=== PATIENT | male | born 1935 | race Caucasian/White ===

== ENCOUNTER 2020-11-03 14:06 | Inpatient (IN) | payer MEDICARE ==
[~2020-11-03] VITALS: Ht 175 cm; Wt 96.6 kg
[2020-11-03] MEDS ORDERED: methylPREDNISolone 125 MG (Solu-MEDROL) VIAL ONE (14:21)
[2020-11-03] MEDS ORDERED: LACTATED RINGERS 1,000 ML IV ONE (14:24)
[2020-11-03] MEDS ORDERED: dilTIAZem DRIP PRE-MIX 125 ML IV ONE (14:40)
[2020-11-03] MEDS ORDERED: methylPREDNISolone 125 MG (Solu-MEDROL) VIAL IVP ONE (15:00)
[2020-11-03 15:06] LABS: BASOPHILS # (AUTO) 0.1 10^3/uL (0.0-0.1); BASOPHILS % (AUTO) 0 % (0-10); EOSINOPHILS % (AUTO) 0 % (0-10); HEMATOCRIT 44 % (40-54); HEMOGLOBIN 14.2 g/dL (13.3-17.7); LYMPHOCYTES # (AUTO) 2.6 X 10^3 (1.0-4.0); LYMPHOCYTES % (AUTO) 16 % (12-44); MEAN CORPUSCULAR HEMOGLOBIN 30 pg (25-34); MEAN CORPUSCULAR HGB CONC 33 g/dL (32-36); MEAN CORPUSCULAR VOLUME 91 fL (80-99); MONOCYTES # (AUTO) 0.9 X 10^3 (0.0-1.0); MONOCYTES % (AUTO) 5 % (0-12); NEUTROPHILS # (AUTO) 12.6 X 10^3 (1.8-7.8); NEUTROPHILS % (AUTO) 78 % (42-75); PLATELET COUNT 207 10^3/uL (130-400); WHITE BLOOD COUNT 16.1 10^3/uL (4.3-11.0)
[2020-11-03 15:11] LABS: INR 2.2 (0.8-1.4)
[2020-11-03 15:14] LABS: ALBUMIN 3.6 GM/DL (3.2-4.5); BILIRUBIN,TOTAL 1.1 MG/DL (0.1-1.0); CALCIUM 8.5 MG/DL (8.5-10.1); CREATININE SERUM 1.48 MG/DL (0.60-1.30); POTASSIUM 4.3 MMOL/L (3.6-5.0); TOTAL PROTEIN 7.4 GM/DL (6.4-8.2)
[2020-11-03 15:16] LABS: BAND NEUTROPHILS 2 %; LYMPHOCYTES % (MANUAL) 19 %; MONOCYTES % (MANUAL) 5 %; NEUTROPHILS % (MANUAL) 74 %; RBC MORPH NORMAL
[2020-11-03] MEDS ORDERED: ASPIRIN 81 MG CHEW (CHILDREN'S ASA) PO STA (15:21)
--- NOTE | 2020-11-03 15:25 | NUR ---
CARDIZEM INCREASED TO 20CC/HR ORDERED
--- NOTE | 2020-11-03 15:45 | NUR ---
TEMP 102.3. HR128, RR35, B/P 138/75
--- NOTE | 2020-11-03 15:47 | Diagnostic Imaging Report ---
INDICATION: COVID positive patient, irregular heart rate. Frontal chest obtained 03:37 p.m. and compared to 09/16/2016. There is mild cardiomegaly. There are extensive new patchy alveolar infiltrates in the mid to lower lung barrera on both sides, suspicious for atypical pneumonia. There is no pneumothorax. There is minimal left pleural effusion. IMPRESSION: Extensive new bilateral infiltrates compatible with atypical pneumonia. There is mild cardiomegaly. Dictated by: Dictated on workstation # [id number]
[2020-11-03] MEDS ORDERED: ACETAMINOPHEN 500 MG TAB (TYLENOL) PO STA (15:50)
--- NOTE | 2020-11-03 16:30 | ED General ---
General Chief Complaint: Respiratory Problems Stated Complaint: COVID + Nursing Triage Note: PT FROM INFUSION AREA PER CART INTO ROOM 8, PT SAT 80% ON 15L VIA OX MASK, PT IN RESP DISTRESS. PT HAS COVID AND HAS JUST FINISHED BAM INFUSION. PT HR 174 SAT 80%ON 15L, B/P 145/86. PT IS AWAKE AND ALERT, SKIN VERY WARM AND DRY. PT DENEIS PAIN STATES JUST HAVING TROUBLE BREATHING. PT HAS #22 SL IN R AC BY INFUSION NURSE. Nursing Sepsis Screen: Possible Sepsis Risk Source of Information: Patient Exam Limitations: No Limitations History of Present Illness Date Seen by Provider: Nov 03, 2020 Time Seen by Provider: 14:20 Initial Comments Here after infusion therapy with Bamlanivimab due to recent Covid infection. Patient has positive test results today from test done yesterday after onset of symptoms on Monday 3 days ago. Patient met qualification for monoclonal antibody therapy priority 1 and this was given. During the infusion, patient's O2 saturations noted to be declining on room air. Does have significant history of COPD and did not do his breathing treatment this afternoon. He was given albuterol treatment via MDI during therapy and started on oxygen. Despite this, his O2 saturation did not improve and patient was brought over to the emergency department. There he was noted to be 84% on 15 L via mask and down as low as the 80s occasionally. Very dyspneic. Does have fever. Did have IV established from infusion therapy. Timing/Duration: 2-3 Days, Getting Worse Severity: Severe Associated Systoms: No Chest Pain; Cough, Fever/Chills; No Nausea/Vomiting; Shortness of Air, Weakness Allergies and Home Medications Allergies Coded Allergies: No Known Drug Allergies (Unverified , 11/03/20) Home Medications Albuterol Sulfate 1 Puff Puff, 2 PUFF IH Q6H PRN for SHORTNESS OF BREATH, (Reported) 1 PUFF = 90 MCG Apixaban 5 Mg Tablet, 5 MG PO BID, (Reported) Arformoterol Tartrate 15 Mcg/2 Ml Vial.neb, 1 VIAL NEB BID, (Reported) Budesonide 0.5 Mg/2 Ml Ampul.neb, 1 VIAL NEB BID, (Reported) Diltiazem HCl 240 Mg Cap.er.24h, 240 MG PO DAILY, (Reported) 1 HOUR BEFORE OR 2 HOURS AFTER A MEAL Furosemide 40 Mg Tablet, 40 MG PO DAILY, (Reported) Lisinopril 40 Mg Tablet, 40 MG PO DAILY, (Reported) Pravastatin Sodium 20 Mg Tablet, 20 MG PO HS, (Reported) Umeclidinium Hathorne 62.5 Mcg Blst.w.dev, 1 PUFF INH DAILY, (Reported) Patient Home Medication List Home Medication List Reviewed: Yes Review of Systems Review of Systems Constitutional: see HPI, chills, fever, weakness EENTM: nose congestion; No throat pain Respiratory: cough, dyspnea on exertion, short of breath, wheezing Cardiovascular: No chest pain, No edema Gastrointestinal: No abdominal pain, No nausea, No vomiting Genitourinary: no symptoms reported Musculoskeletal: no symptoms reported Skin: no symptoms reported Psychiatric/Neurological: No Symptoms Reported All Other Systems Reviewed Negative Unless Noted: Yes Past Bwlofwl-Smapya-Ohzdzp Hx Past Med/Social Hx: Reviewed Nursing Past Med/Soc Hx Patient Social History Alcohol Use: Denies Use Recreational Drug Use: No Recent Foreign Travel: No Contact w/Someone Who Travel: No Recent Infectious Disease Expo: No Past Medical History Respiratory: Yes Chronic Bronchitis Cardiac: Yes Atrial Fibrillation, High Cholesterol, Hypertension Neurological: No Family Medical History Reviewed Nursing Family Hx No Pertinent Family Hx Physical Exam-Suspected Sepsis Physical Exam Vital Signs Vital Signs - First Documented 11/03/20 14:20 Temp 38.9 Pulse 174 Resp 60 B/P (MAP) 145/86 (105) Pulse Ox 84 O2 Delivery OxyMask O2 Flow Rate 15.00 Capillary Refill : Less Than 3 Seconds Blood Pressure Mean: 105 Height, Weight, BMI Height: '" Weight: lbs. oz. kg; 25.00 BMI Method: General Appearance: WD/WN, Moderate Distress HEENT: PERRL/EOMI, Other (Dry mucous membranes) Neck: Full Range of Motion, Supple Respiratory: Crackles, Decreased Breath Sounds, Respiratory Distress, Wheezing Cardiovascular: Irregularly Irregular, Tachycardia Gastrointestinal: Non Tender, Soft Back: Normal Inspection, No CVA Tenderness, No Vertebral Tenderness Extremity: Normal Inspection, Normal Range of Motion, Non Tender, No Calf Tenderness, No Pedal Edema Neurologic/Psychiatric: Alert, Oriented x3, No Motor/Sensory Deficits Skin: normal color, warm/dry Focused Exam Lactate Level 11/03/20 14:45: Lactic Acid Level 4.00*H 11/03/20 17:02: Lactic Acid Level 2.96*H Lactic Acid Level Laboratory Tests Test 11/03/20 17:02 Lactic Acid Level 2.96 MMOL/L (0.50-2.00) *H Procedures/Interventions Lumen: triple Central Line Procedure: betadine prep, sterile drapes applied, sterile dressing applied Position: internal jugular (R) Complications: none Post Position: sutured, good blood return, position confirmed w/ CXR Place via ultrasound guidance using Seldinger technique x1 stick without complications. Placement confirmed with x-ray. Date of ETT Placement: Nov 03, 2020 Time of ETT Placement: 18:15 Intubation Method: orotracheal Tube Size: 7.5 Medications: Etomidate, Fentanyl, Succinylcholine, Versed Positive End Tide CO2: Yes Breath Sounds after Intubation: bilateral-equal Intubation Complications: no complications Post Intubation Xray: Yes Tube in good position Progress/Results/Core Measures Suspected Sepsis Recent Fever Within 48 Hours: Yes Infection Criteria Present: Documented Infection New/Unexplained Altered Menta: No Sepsis Screen: Possible Sepsis Risk SIRS Temperature: Pulse: 174 Respiratory Rate: 60 Laboratory Tests 11/03/20 14:45: White Blood Count 16.1H Blood Pressure 145 /86 Mean: 105 11/03/20 14:45: Lactic Acid Level 4.00*H 11/03/20 17:02: Lactic Acid Level 2.96*H Laboratory Tests 11/03/20 14:45: Creatinine 1.48H, INR Comment 2.2H, Platelet Count 207, Total Bilirubin 1.1H Results/Orders Lab Results Laboratory Tests Test 11/03/20 14:45 11/03/20 16:47 11/03/20 17:02 Range/Units White Blood Count 16.1 H 4.3-11.0 10^3/uL Red Blood Count 4.77 4.30-5.52 10^6/uL Hemoglobin 14.2 13.3-17.7 g/dL Hematocrit 44 40-54 % Mean Corpuscular Volume 91 80-99 fL Mean Corpuscular Hemoglobin 30 25-34 pg Mean Corpuscular Hemoglobin Concent 33 32-36 g/dL Red Cell Distribution Width 13.7 10.0-14.5 % Platelet Count 207 130-400 10^3/uL Mean Platelet Volume 11.0 9.0-12.2 fL Immature Granulocyte % (Auto) 0 % Neutrophils (%) (Auto) 78 H 42-75 % Lymphocytes (%) (Auto) 16 12-44 % Monocytes (%) (Auto) 5 0-12 % Eosinophils (%) (Auto) 0 0-10 % Basophils (%) (Auto) 0 0-10 % Neutrophils # (Auto) 12.6 H 1.8-7.8 X 10^3 Lymphocytes # (Auto) 2.6 1.0-4.0 X 10^3 Monocytes # (Auto) 0.9 0.0-1.0 X 10^3 Eosinophils # (Auto) 0.0 0.0-0.3 10^3/uL Basophils # (Auto) 0.1 0.0-0.1 10^3/uL Immature Granulocyte # (Auto) 0.0 0.0-0.1 10^3/uL Neutrophils % (Manual) 74 % Lymphocytes % (Manual) 19 % Monocytes % (Manual) 5 % Band Neutrophils 2 % Blood Morphology Comment NORMAL Prothrombin Time 25.0 H 12.2-14.7 SEC INR Comment 2.2 H 0.8-1.4 Activated Partial Thromboplast Time 47 H 24-35 SEC Sodium Level 139 135-145 MMOL/L Potassium Level 4.3 3.6-5.0 MMOL/L Chloride Level 102 98-107 MMOL/L Carbon Dioxide Level 23 21-32 MMOL/L Anion Gap 14 5-14 MMOL/L Blood Urea Nitrogen 21 H 7-18 MG/DL Creatinine 1.48 H 0.60-1.30 MG/DL Estimat Glomerular Filtration Rate 45 BUN/Creatinine Ratio 14 Glucose Level 167 H 70-105 MG/DL Lactic Acid Level 4.00 *H 2.96 *H 0.50-2.00 MMOL/L Calcium Level 8.5 8.5-10.1 MG/DL Corrected Calcium 8.8 8.5-10.1 MG/DL Total Bilirubin 1.1 H 0.1-1.0 MG/DL Aspartate Amino Transf (AST/SGOT) 51 H 5-34 U/L Alanine Aminotransferase (ALT/SGPT) 56 H 0-55 U/L Alkaline Phosphatase 100 40-136 U/L Troponin I 0.053 H <0.028 NG/ML Total Protein 7.4 6.4-8.2 GM/DL Albumin 3.6 3.2-4.5 GM/DL Procalcitonin 0.37 H <0.10 NG/ML Urine Color YELLOW Urine Clarity CLEAR Urine pH 5.0 5-9 Urine Specific Liscomb 1.025 H 1.016-1.022 Urine Protein NEGATIVE NEGATIVE Urine Glucose (UA) NEGATIVE NEGATIVE Urine Ketones TRACE H NEGATIVE Urine Nitrite NEGATIVE NEGATIVE Urine Bilirubin NEGATIVE NEGATIVE Urine Urobilinogen 0.2 < = 1.0 MG/DL Urine Leukocyte Esterase NEGATIVE NEGATIVE Urine RBC (Auto) 1+ H NEGATIVE Urine RBC 2-5 H /HPF Urine WBC 0-2 /HPF Urine Crystals PRESENT H /LPF Urine Amorphous Sediment MOD PATRICK URATES H /LPF Urine Bacteria TRACE /HPF Urine Casts PRESENT /LPF Urine Hyaline Casts 10-25 H /LPF Urine Mucus SMALL H /LPF Urine Culture Indicated CULTURE PENDING Micro Results Microbiology 11/03/20 Influenza Types A,B Antigen (MARIELENA) - Final, Complete My Orders Orders - KATERIN GUERRA MD Methylprednisolone Sod Succ (Solu-Medrol (11/03/20 14:21) Lactated Ringers (Lr 1000 Ml Iv Solution (11/03/20 14:24) Diltiazem Drip Pre-Mix (Cardizem Drip Pr (11/03/20 14:40) Diltiazem Injection (Cardizem Injection) (11/03/20 14:40) Cbc With Automated Diff (11/03/20 14:52) Comprehensive Metabolic Panel (11/03/20 14:52) Blood Culture (11/03/20 14:52) Sputum Culture (11/03/20 14:52) Urinalysis (11/03/20 14:52) Urine Culture (11/03/20 14:52) Protime With Inr (11/03/20 14:52) Partial Thromboplastin Time (11/03/20 14:52) Chest 1 View, Ap/Pa Only (11/03/20 14:52) Ed Iv/Invasive Line Start (11/03/20 14:52) Ekg Tracing (11/03/20 14:52) Troponin I (11/03/20 14:52) Vital Signs Adult Sepsis Patie Q15M (11/03/20 14:52) O2 (11/03/20 14:52) Remove Rings In Anticipation O (11/03/20 14:52) Lactic Acid Analyzer (11/03/20 14:52) Influenza A And B Antigens (11/03/20 14:52) Methylprednisolone Sod Succ (Solu-Medrol (11/03/20 15:00) Ns (Ivpb) (Sodium C... W/Diltiazem Iv Fo (11/03/20 15:00) Diltiazem Injection (Cardizem Injection) (11/03/20 15:00) Manual Differential (11/03/20 14:45) Aspirin Chewable Tablet (Baby Aspirin Ch (11/03/20 15:21) Metoprolol Succinate (Xl) Tab (Toprol Xl (11/03/20 15:30) Ekg Tracing (11/03/20 15:23) Acetaminophen Tablet (Tylenol Tablet) (11/03/20 15:50) Lorazepam Injection (Ativan Injection) (11/03/20 17:00) Metoprolol Tartrate Injection (Lopressor (11/03/20 17:15) Metoprolol Tartrate Injection (Lopressor (11/03/20 17:15) Procalcitonin (Pct) (11/03/20 17:23) Cefepime Injection (Maxipime Injection) (11/03/20 17:45) Vancomycin Injection (Vancomycin Injecti (11/03/20 17:45) Propofol Drip (Icu) (Diprivan Drip (Icu) (11/03/20 18:05) Norepinephrine 4 Mg/250 Ml (Norepinephri (11/03/20 18:16) Chest 1 View, Ap/Pa Only (11/03/20 18:33) Phenylephrine Injection (Adams-Synephrine (11/03/20 19:00) Medications Given in ED Current Medications Medications Dose Ordered Sig/Kyaw Route Start Time Stop Time Status Last Admin Dose Admin Diltiazem HCl 25 mg STK-MED ONCE .ROUTE 11/03/20 14:40 11/03/20 14:45 DC 11/03/20 14:46 15 MG Diltiazem HCl 125 ml @ ud STK-MED ONCE IV 11/03/20 14:40 11/03/20 14:44 DC 11/03/20 14:46 10 MLS/HR Lactated Ringer's 1,000 ml @ ud STK-MED ONCE IV 11/03/20 14:24 11/03/20 14:28 DC 11/03/20 14:25 1,000 MLS/HR Lorazepam 0.5 mg ONCE ONCE IVP 11/03/20 17:00 11/03/20 17:01 DC 11/03/20 17:02 0.5 MG Methylprednisolone Sodium Succinate 125 mg STK-MED ONCE .ROUTE 11/03/20 14:21 11/03/20 14:25 DC 11/03/20 14:22 125 MG Metoprolol Succinate 25 mg ONCE ONCE PO 11/03/20 15:30 11/03/20 15:31 DC 11/03/20 15:31 25 MG Metoprolol Tartrate 5 mg ONCE ONCE IV 11/03/20 17:15 11/03/20 17:16 DC 11/03/20 17:19 5 MG Vital Signs/I&O 11/03/20 14:20 Temp 38.9 Pulse 174 Resp 60 B/P (MAP) 145/86 (105) Pulse Ox 84 O2 Delivery OxyMask O2 Flow Rate 15.00 Capillary Refill : Less Than 3 Seconds Blood Pressure Mean: 105 Progress Note : Progress Note Seen and evaluated on arrival. IVs already been established but second IV ordered. Patient noted to be in A. fib RVR and and respiratory distress/failure. High flow O2 initiated and this was changed to BiPAP as soon as it was available. BiPAP initiated at 18/8 and 100%. Ultimately decreased to 15/5 and 55% with O2 sats at 92%. Patient much better after initiation of BiPAP. Solu-Medrol 125 mg IV initiated. Sepsis protocol initiated. LR 1 L bolus ordered. Cardizem 15 mg IV bolus and drip initiated at 10 mg/h started. 1600: Cardizem at 20 mg/h. Patient had abnormal EKG finding on initial EKG at 1500. This was discussed with Dr. Mendez. Question of anterior infarct. EKG repeated at 1535 which still shows similar findings. Troponin slightly elevated at 0.05. We are trying to get old EKG. Patient is currently on Eliquis. We did give aspirin 81 mg p.o. as well as metoprolol XL 25 mg p.o. EKG does not show typical ST elevation MS. 1629: Patient is still without chest pain and has remained chest pain-free throughout the visit. Breathing is much better. Pending EKG from outside hospital. Consideration for heart cath. Monitor patient. 1710: Dr. Alexander evaluating patient in the emergency department. Old EKGs obtained. Does show chronic changes in concerning leads. This was disc ussed at length with the patient's family. At this point, heart cath not indicated given his serious condition. Remains on BiPAP although oxygen had to be increased to 65% FiO2. 1740: Further discussion with the patient and family has been had. Patient is full code. He is becoming increasingly short of breath and at this point I feel intubation is indicated. This was discussed with Dr. Cornejo who agrees. I also discussed this with the family who agree. They understand the critical nature of his current condition especially in light of COVID-19 infection and the A. fib with RVR and significant chronic lung disease history. Patient at high risk for mortality. Patient to be admitted to the ICU. We will initiate intubation and central line. 1907: Intubation complete and central line placed without difficulty. Patient did receive Versed 5 mg IV and fentanyl 50 mcg IV after intubation. Rocuronium 50 mg IV given pending propofol initiation. Patient became hypotensive after intubation and Levophed initiated and ultimately increased 2.25 mcg/kg/min. Patient initiated on propofol at 40 mcg/kg/min. Patient remained hypoxic in the 80s despite that changes to rate of 20, tidal volume 450 and PEEP of 14. Patient proned in the ED with improved O2 saturation to low 90s and blood pressure improved. Cardizem drip titrated down to 5 mg/h. I did call report to eICU team and discussed rob campoverde case. We will consider Adams-Synephrine drip for blood pressure management in addition to Levophed if needed and this was ordered. Admit, inpatient status, critical condition. Critical care time 60 minutes. Family updated and agrees with plan. ECG Initial ECG Impression Date: Nov 03, 2020 Initial ECG Impression Time: 15:01 Initial ECG Rate: 149 Initial ECG Rhythm: A Fib/Flutter Initial ECG Impression: Atrial Fibrillation w/RVR Comment A. fib with RVR. Q waves and question of ST elevation in V1 through V6. This is consistent with previous from outside hospital EKG done on 09/14/2020 although rate is much faster currently. A. fib previously noted. This was reviewed with the cupola melter who agrees. EKG : EKG Time: 15:35 Rate: 124 Rhythm: A Fib/Flutter ECG Impression: Atrial Fibrillation w/RVR Comment A. fib RVR similar to previous. Previous chronic changes still noted and unchanged. Reviewed with cupola melter who agrees. Diagnostic Imaging Diagonstic Imaging: Xray Plain Films/CT/US/NM/MRI: chest Comments [facility], [place] NAME: SAMMI GUILLEN [facility] REC#: [id number] PT STATUS: REG ER : 1935 PHYSICIAN: KATERIN GUERRA MD ADMIT DATE: 11/03/20/ER Draft Date of Exam:11/03/20 CHEST 1 VIEW, AP/PA ONLY INDICATION: COVID positive patient, irregular heart rate. Frontal chest obtained 03:37 p.m. and compared to 09/16/2016. There is mild cardiomegaly. There are extensive new patchy alveolar infiltrates in the mid to lower lung barrera on both sides, suspicious for atypical pneumonia. There is no pneumothorax. There is minimal left pleural effusion. IMPRESSION: Extensive new bilateral infiltrates compatible with atypical pneumonia. There is mild cardiomegaly. Dictated on workstation # [id number] Dict: 11/03/20 1544 Trans: 11/03/20 1547 [facility] [id number] Interpreted by: DOMINIC MIR MD Electronically signed by: Critical Care Note Critical Care Start Time: 14:20 Stop Time: 19:06 Total Time (minutes) 60 Departure Communication (Admissions) Time/Spoke to Admitting Phy: 15:27 Time/Spoke to Consulting Phy: 15:19 Impression Primary Impression: Pneumonia due to COVID-19 virus Additional Impressions: Atrial fibrillation with rapid ventricular response Respiratory failure with hypoxia Qualified Codes: J96.01 - Acute respiratory failure with hypoxia Disposition: ADMITTED INPATIENT Condition: Critical Admissions Decision to Admit Reason: Admit from ER (General) Decision to Admit/Date: Nov 03, 2020 Time/Decision to Admit Time: 15:27 Departure-Patient Inst. Referrals: NO,LOCAL PHYSICIAN (PCP/Family) Primary Care Physician KATERIN GUERRA MD Nov 03, 2020 16:30
[2020-11-03] MEDS ORDERED: LORazepam INJ 2 MG/ML (ATIVAN) VIAL IVP ONE (17:00)
[2020-11-03 17:04] LABS: BILIRUBIN,URINE NEGATIVE (NEGATIVE); CLARITY,URINE CLEAR; COLOR,URINE YELLOW; GLUCOSE, URINE (UA) NEGATIVE (NEGATIVE); KETONES,URINE TRACE (NEGATIVE); LEUKOCYTE ESTERASE ,URINE NEGATIVE (NEGATIVE); NITRITE,URINE NEGATIVE (NEGATIVE); PROTEIN,URINE NEGATIVE (NEGATIVE)
[2020-11-03 17:13] LABS: BACTERIA,URINE TRACE /HPF; WBC,URINE 0-2 /HPF
[2020-11-03 17:14] LABS: AMORPHOUS SEDIMENT,UR MOD AMOR URATES /LPF
[2020-11-03] MEDS ORDERED: meTOprolol 5 MG/5 ML (LOPRESSOR) VIAL IV ONE ×2 (17:15)
--- NOTE | 2020-11-03 17:21 | NUR ---
DR BUSCH HERE TO SEE PT
--- NOTE | 2020-11-03 17:33 | NUR ---
[id number] AX
--- NOTE | 2020-11-03 17:34 | Consultation-Cardiology ---
HPI-Cardiology Cardiology Consultation: Date of Consultation 11/03/20 Time Seen by a Provider: 17:10 Date of Admission Attending Physician Admitting Physician No,Local Physician Consulting Physician KIM BUSCH MD, MA, FACP, FACC, FSCAI, CCDS HPI: Chief Complaint: CC: Shortness of breath HPI 85 yo man who is being admitted to hospitalist service for recently diagnosed COVID-19 and increasing shortness of breath. Shortness of breath much worse today. Denies cp or palp or syncope or swelling. Has been running high-grade fever. Has gen malaise. Notes gen weakness Review of Systems-Cardiology Review of Systems Constitutional: As described under HPI Eyes: No vision change Ears/Nose/Throat: No ear discharge, No nasal drainage, No throat pain Respiratory: As described under HPI Cardiovascular: As described under HPI Gastrointestinal: No diarrhea, No nausea, No vomiting Genitourinary: No dysuria, No hematuria, No urine frequency changes Musculoskeletal: back pain (chronic) Skin: No rash, No rash on exposed areas Psychiatric/Neurological: No seizure, No focal weakness, No syncope Hematologic: No bleeding abnormalities All Other Systems Reviewed Negative Unless Noted: Yes MTY-Xugmbw-Jrbdqu Hx Patient Social History Alcohol Use: Denies Use Recreational Drug Use: No Recent Foreign Travel: No Recent Infectious Disease Expo: No Hospitalization with Isolation: Airborne Past Medical History PMH As described under Assessment. Family Medical History Family Medical History: Does not report fam h/o early CAD or SCD Allergies and Home Medications Allergies Coded Allergies: No Known Drug Allergies (Unverified , 11/03/20) Patient Home Medication List Home Medication List Reviewed: Yes Physical Exam-Cardiology Physical Exam Vital Signs/I&O 11/03/20 14:20 Temp 38.9 Pulse 174 Resp 60 B/P (MAP) 145/86 (105) Pulse Ox 84 O2 Delivery OxyMask O2 Flow Rate 15.00 Capillary Refill : Less Than 3 Seconds Constitutional: appears stated age, AAO x 3, well-developed, well-nourished, other (appears unwell) HEENT: PERRL, EOMI; No xanthelasmas are seen Neck: carotid pulses are 2 + bilaterally, with good upstrokes Respiratory: No accessory muscle use; other (bibasilar and mid zone coarse crackles, prolonged exp, scattered exp wheezes) Cardiovascular: regular rate-rhythm, S1 and S2, systolic murmur (soft WARNER at card base) Gastrointestinal: No tender; soft; No guarding, No rebound; audible bowel sounds Extremities: No clubbing, No cyanosis, No significant edema Neurologic/Psychiatric: oriented x 3, other (moves all limbs equally) Skin: No rash on exposed areas, No ulcerations on exposed areas Data Review Labs Laboratory Tests 11/03/20 14:45: White Blood Count 16.1H, Red Blood Count 4.77, Hemoglobin 14.2, Hematocrit 44, Mean Corpuscular Volume 91, Mean Corpuscular Hemoglobin 30, Mean Corpuscular Hemoglobin Concent 33, Red Cell Distribution Width 13.7, Platelet Count 207, Mean Platelet Volume 11.0, Immature Granulocyte % (Auto) 0, Neutrophils (%) (Auto) 78H, Lymphocytes (%) (Auto) 16, Monocytes (%) (Auto) 5, Eosinophils (%) (Auto) 0, Basophils (%) (Auto) 0, Neutrophils # (Auto) 12.6H, Lymphocytes # (Auto) 2.6, Monocytes # (Auto) 0.9, Eosinophils # (Auto) 0.0, Basophils # (Auto) 0.1, Immature Granulocyte # (Auto) 0.0, Neutrophils % (Manual) 74, Lymphocytes % (Manual) 19, Monocytes % (Manual) 5, Band Neutrophils 2, Blood Morphology Comment NORMAL, Prothrombin Time 25.0H, INR Comment 2.2H, Activated Partial Thromboplast Time 47H, Sodium Level 139, Potassium Level 4.3, Chloride Level 102, Carbon Dioxide Level 23, Anion Gap 14, Blood Urea Nitrogen 21H, Creatinine 1.48H, Estimat Glomerular Filtration Rate 45, BUN/Creatinine Ratio 14, Glucose Level 167H, Lactic Acid Level 4.00*H, Calcium Level 8.5, Corrected Calcium 8.8, Total Bilirubin 1.1H, Aspartate Amino Transf (AST/SGOT) 51H, Alanine Aminotransferase (ALT/SGPT) 56H, Alkaline Phosphatase 100, Troponin I 0.053H, Total Protein 7.4, Albumin 3.6 11/03/20 16:47: Urine Color YELLOW, Urine Clarity CLEAR, Urine pH 5.0, Urine Specific [place] 1.025H, Urine Protein NEGATIVE, Urine Glucose (UA) NEGATIVE, Urine Ketones TRACEH, Urine Nitrite NEGATIVE, Urine Bilirubin NEGATIVE, Urine Urobilinogen 0.2, Urine Leukocyte Esterase NEGATIVE, Urine RBC (Auto) 1+H, Urine RBC 2-5H, Urine WBC 0-2, Urine Crystals PRESENTH, Urine Amorphous Sediment MOD PATRICK URATESH, Urine Bacteria TRACE, Urine Casts PRESENT, Urine Hyaline Casts 10-25H, Urine Mucus SMALLH, Urine Culture Indicated CULTURE PENDING 11/03/20 17:02: Lactic Acid Level 2.96*H Microbiology 11/03/20 Influenza Types A,B Antigen (MARIELENA) - Final, Complete Laboratory Tests 11/03/20 14:45 A/P-Cardiology Assessment/Admission Diagnosis Ac resp failure due to bilateral COVID-19 pneumonia Chronic atrial fib with a rapid vent response Chronically abnormal ECG: A Fib with atypical bundle branch block, old ASMI cannot be excluded, unchanged (except for minor differences in lead placement) compared to ECGs of Aug 2020 (done at [facility], [place], [place]) Minimal troponin elevation is likely due to hypoxia from COVID-19 pneumonia that has led to ac resp failure and hypoxia LVEF reported to be normal on echo done at [facility] in 2019 H/o COPD Acute renal insufficiency, KOREY - 2 Chronic apixaban anticoag Discussion and Recomendations * ECG is chronically abnormal. Minimal troponin elevation is likely due to hypoxia from COVID-19 pneumonia that has led to ac resp failure and hypoxia * Continue apixaban * iv dilt and beta-michael for vent rate control * Treatment of COVID-19 and associated complications is with the Hospitalist and ICU services * Monitor labs * I discussed his case with his daughter who works at this hospital * Prognosis is guarded KIM BUSCH MD FACP FAC CCDS Nov 03, 2020 17:34
[2020-11-03] MEDS ORDERED: CEFEPIME INJECTION 1,000 MG in WATER (STERILE) FOR INJECTION 10 ML IV ONE (17:45)
[2020-11-03] MEDS ORDERED: VANCOMYCIN INJECTION 750 MG in NS (IVPB) 250 ML IV SCH (17:45)
--- NOTE | 2020-11-03 17:45 | NUR ---
PT O2 SAT DECREASING WHEN ON BIPAP, PT REPOSITIONED TO SIDE. DR GUERRA NOTIFIED. PLANS TO INTUBATE PT. DAUGHTER ALLOWED IN TO SPEAK TO PT. PT IN AGREEMENT W INTUBATION.
--- NOTE | 2020-11-03 18:00 | NUR ---
1800 PT GIVEN 100MG SUCCS IV 1800 ETOMIDATE 20MG IV GIVEN ORDERED [address] GUERRA 7.5 ET TUBE. 23CM @ GUMS +COLOR CHANGE. +BILATERAL BREATH SOUNDS. 1808 2.5MG VERSED GIVEN IV 180 50MG FENTYL GIVEN IV 1810 ADELAIDE 50MG IV GIVEN 181 VERSED 2.5MG IV GIVEN 181 PROPOFOL STARTED @40 MCG/KG/MIN 1816 OG INSERTED 1830 LEVOPHED STARTED 0.1MCG/KG/MIN 1835 LEVOPHED INCREASED TO 0.15MCG/KG/MIN 1836 SCHNEIDER INSERTED #16 1840 CENTRAL LINE INSERTED BY DR GUERRA IN R IJ. 1840 LEVOPHED INCREASED TO 0.25MCG/KG/MIN 1849 PLACEMENT OF ET TUBE, OG AND CENTAL LINE CHECKED BY X-RAY 1850 PT TO PRONE POSITION 1858 PT TO ICU PER BED, RN, RT X2, CLEANING STAFF SUPERVISOR, ED PCCT AND ICU PCCT
[2020-11-03] MEDS ORDERED: PROPOFOL DRIP (ICU) 100 ML IV ONE (18:05)
[2020-11-03] MEDS ORDERED: NOREPINEPHRINE 4 MG/250 ML 250 ML IV ONE (18:16)
--- NOTE | 2020-11-03 18:54 | Diagnostic Imaging Report ---
EXAMINATION: Chest 1 view HISTORY: Endotracheal tube and central line placement. COMPARISON: Chest radiograph performed earlier the same date. FINDINGS: Interval placement of a right internal jugular approach central line with the tip overlying the low SVC. Patent endotracheal tube has been placed with the tip overlying the trachea approximately 6 cm above the bindu. Enteric tube is seen descending below the diaphragm not included on this exam. Stable patchy and consolidative opacities are seen throughout the lungs with relative sparing of the lung apices. No large pleural effusion or pneumothorax. Cardiac silhouette is stable. IMPRESSION: 1. Interval placement of an endotracheal tube, right internal jugular central line, and enteric tube. 2. Stable opacities throughout the lungs, consistent with a history of COVID infection. Dictated by: Dictated on workstation # [id number]
[2020-11-03] MEDS ORDERED: PHENYLEPHRINE INJECTION 10 MG in NS (IVPB) 250 ML IV SCH (19:00)
[2020-11-03] MEDS ORDERED: CATHETER FLUSH 10 ML SYR IV PRN (19:45)
[2020-11-03] MEDS: dilTIAZem DRIP 125 MG/125 ML DRIP IV SCH (19:50)
--- NOTE | 2020-11-03 19:52 | NUR ---
updated daughter Angel at this time
[2020-11-03] MEDS ORDERED: ACETAMINOPHEN 650 MG SUPP (TYLENOL) PR PRN ×2 (20:00→20:15)
[2020-11-03] MEDS ORDERED: ACETAMINOPHEN 325 MG TABLET PO PRN (20:00)
[2020-11-03] MEDS ORDERED: EPINEPHrine 1 MG INJECTION 4 MG in NS (IVPB) 248 ML IV SCH (20:00)
[2020-11-03] MEDS ORDERED: LEVALBUTEROL INH PRN (20:00)
[2020-11-03] MEDS ORDERED: PHENYLEPHRINE 10 MG/NS 250 ML IV SCH ×2 (20:15)
[2020-11-03] MEDS ORDERED: ETOMIDATE IV SOLN 20 MG/10 ML VIAL IV ONE (20:21)
[2020-11-03] MEDS ORDERED: MIDAZOLAM 5 MG/5 ML (VERSED) VIAL INJ ONE (20:21)
[2020-11-03] MEDS ORDERED: ROCURONIUM 10 MG/ML 5 ML SYRINGE IV ONE (20:21)
[2020-11-03] MEDS ORDERED: fentaNYL INJECTION 100 MCG/2 ML AMP IV ONE (20:21)
[2020-11-03] MEDS ORDERED: SUCCINYLCHOLINE INJ 100 MG/5 ML SYR/VIAL INJ ONE (20:21)
[2020-11-03] MEDS: meTOprolol 5 MG/5 ML (LOPRESSOR) VIAL IV SCH ×2 (20:38→23:31)
[2020-11-03] MEDS: VASOPRESSIN INJECTION 20 UNIT in NS (IVPB) 100 ML IV SCH (20:39)
[2020-11-03] MEDS: NOREPINEPHRINE 4 MG/250 ML 250 ML IV SCH ×2 (20:39→21:51)
[2020-11-03] MEDS ORDERED: VANCOMYCIN 750 MG/VIAL IV ONE (21:11)
[2020-11-03] MEDS ORDERED: NS (IVPB) 250 ML ONE (21:12)
[2020-11-03] MEDS ORDERED: VANCOMYCIN 500 MG/VIAL IV ONE (21:12)
[2020-11-03] MEDS ORDERED: fentaNYL DRIP PRE-MIX 250 ML IV ONE (21:16)
[2020-11-03] MEDS: fentaNYL DRIP PRE-MIX 250 ML IV SCH (21:44)
[2020-11-03] MEDS: CEFEPIME 1,000 MG/SWFI 10 ML IV PUSH IV SCH ×2 (21:45)
[2020-11-03] MEDS: LACTATED RINGERS 1,000 ML IV SCH (21:45)
[2020-11-03] MEDS: VANCOMYCIN 1250 MG/NS 250 ML IVPB IV SCH ×2 (21:46)
[2020-11-03] MEDS: APIXABAN 5 MG (ELIQUIS) TABLET PO SCH (21:47)
[2020-11-03] MEDS: CATHETER FLUSH 10 ML SYR IV SCH (22:18)
[2020-11-03 22:31] VITALS: BP 82/67
[2020-11-03 22:47] LABS: ABG BASE EXCESS -2.7 MMOL/L (-2.5-2.5); ABG OXYGEN SATURATION 92 % (94-100); ABG PCO2 47 MMHG (35-45); ABG PO2 64 MMHG (79-93)
[2020-11-03 22:50] LABS: INSPIRED O2 100; PATIENT TEMP 37.4; VENTILATOR YES
[2020-11-03 22:53] LABS: ABG PH 7.31 (7.37-7.43)
[2020-11-03] MEDS ORDERED: inSUlin ASPART (NovoLOG) 1 UNIT/0.01 ML (CHARGE PER UNIT) ONE (23:35)
[2020-11-03] MEDS: inSUlin ASPART (NovoLOG) 1 UNIT/0.01 ML (CHARGE PER UNIT) SC SCH (23:38)
[2020-11-04] MEDS: LACTATED RINGERS 1,000 ML IV SCH ×5 (01:08→20:17)
[2020-11-04] MEDS: NOREPINEPHRINE 4 MG/250 ML 250 ML IV SCH ×5 (01:09→20:08)
[2020-11-04] MEDS: meTOprolol 5 MG/5 ML (LOPRESSOR) VIAL IV SCH ×8 (02:01→23:06)
[2020-11-04 02:52] LABS: BASOPHILS # (AUTO) 0.1 10^3/uL (0.0-0.1); BASOPHILS % (AUTO) 0 % (0-10); EOSINOPHILS % (AUTO) 0 % (0-10); HEMATOCRIT 41 % (40-54); HEMOGLOBIN 13.3 g/dL (13.3-17.7); LYMPHOCYTES # (AUTO) 1.3 10^3/uL (1.0-4.0); LYMPHOCYTES % (AUTO) 6 % (12-44); MEAN CORPUSCULAR HEMOGLOBIN 30 pg (25-34); MEAN CORPUSCULAR HGB CONC 33 g/dL (32-36); MEAN CORPUSCULAR VOLUME 92 fL (80-99); MEAN PLATELET VOLUME 11.1 fL (9.0-12.2); MONOCYTES # (AUTO) 0.7 10^3/uL (0.0-1.0); MONOCYTES % (AUTO) 3 % (0-12); NEUTROPHILS # (AUTO) 20.8 10^3/uL (1.8-7.8); NEUTROPHILS % (AUTO) 91 % (42-75); PLATELET COUNT 199 10^3/uL (130-400)
[2020-11-04 03:02] LABS: ALBUMIN 3.2 GM/DL (3.2-4.5); POTASSIUM 4.3 MMOL/L (3.6-5.0)
[2020-11-04 03:03] LABS: CALCIUM 8.1 MG/DL (8.5-10.1)
[2020-11-04 03:05] LABS: TOTAL PROTEIN 6.6 GM/DL (6.4-8.2)
[2020-11-04 03:06] LABS: BILIRUBIN,TOTAL 0.9 MG/DL (0.1-1.0)
[2020-11-04 03:08] LABS: CREATININE SERUM 2.29 MG/DL (0.60-1.30); PHOSPHORUS 3.3 MG/DL (2.3-4.7)
[2020-11-04 03:11] LABS: MAGNESIUM 2.1 MG/DL (1.6-2.4)
[2020-11-04 03:16] LABS: ABG OXYGEN SATURATION 95 % (94-100); ABG PCO2 39 MMHG (35-45); ABG PH 7.36 (7.37-7.43); ABG PO2 74 MMHG (79-93)
[2020-11-04 03:17] LABS: ALLENS TEST POSITIVE; INSPIRED O2 85; PATIENT TEMP 35.8; VENTILATOR YES
[2020-11-04] MEDS: VASOPRESSIN INJECTION 20 UNIT in NS (IVPB) 100 ML IV SCH ×3 (04:32→20:10)
--- NOTE | 2020-11-04 05:12 | Pulmonary Consultation ---
History of Present Illness History of Present Illness Date Seen by Provider: Nov 04, 2020 Time Seen by Provider: 05:06 Date of Admission Allergies and Home Medications Allergies Coded Allergies: No Known Drug Allergies (Unverified , 11/03/20) Past Dwmiovz-Dauwhq-Vxuebz Hx Past Med/Social Hx: Reviewed Nursing Past Med/Soc Hx Patient Social History Alcohol Use: Denies Use Recreational Drug Use: No Smoking Status: Never a Smoker Recent Foreign Travel: No Contact w/Someone Who Travel: No Recent Infectious Disease Expo: No Recent Hopitalizations: No Past Medical History Abdominal Respiratory: Yes Chronic Bronchitis Cardiac: Yes Atrial Fibrillation, High Cholesterol, Hypertension Neurological: No Genitourinary: No Gastrointestinal: No Musculoskeletal: No Endocrine: No HEENT: No Cancer: No Psychosocial: No Integumentary: No Family Medical History Reviewed Nursing Family Hx No Pertinent Family Hx Review of Systems Time Seen by Provider: 05:22 Sepsis Event Evaluation Height, Weight, BMI Height: '" Weight: lbs. oz. kg; 25.00 BMI Method: Exam Exam Vital Signs Date Time Temp Pulse Resp B/P (MAP) Pulse Ox O2 Delivery O2 Flow Rate FiO2 11/04/20 04:32 106/66 11/04/20 04:32 67 111/69 11/04/20 04:00 35.9 67 13 111/69 (83) 95 Mechanical Ventilator 85.00 11/04/20 03:00 35.8 64 22 104/71 (82) 93 Mechanical Ventilator 85.00 11/04/20 02:30 Mechanical Ventilator 85.00 11/04/20 02:15 74 24 96 100 11/04/20 02:00 35.9 65 23 109/67 (81) 97 Mechanical Ventilator 100.00 11/04/20 01:09 66 11/04/20 01:00 64 11/04/20 01:00 36.3 64 25 96/62 (73) 97 Mechanical Ventilator 100.00 11/04/20 00:00 36.6 68 25 100/51 (67) 94 Mechanical Ventilator 100.00 11/03/20 23:00 37.1 72 28 97/61 (73) 93 Mechanical Ventilator 100.00 11/03/20 22:31 76 25 93 100 11/03/20 22:00 37.6 97 22 100/69 (79) 93 Mechanical Ventilator 100.00 11/03/20 21:51 90 110/62 1/5/21 21:51 101 11/03/20 21:00 38.1 86 19 108/63 (78) 90 Mechanical Ventilator 100.00 11/03/20 20:00 38.6 87 20 111/70 (84) 90 Mechanical Ventilator 100.00 Manual Cuff/Auscultation 11/03/20 20:00 93 Mechanical Ventilator 100 11/03/20 19:56 38.7 90 20 103/65 (78) 90 Mechanical Ventilator 100.00 103/65 (78) 11/03/20 19:41 84 94 11/03/20 19:30 87 20 102/76 (85) 90 Mechanical Ventilator 100.00 11/03/20 19:15 80 20 87/59 (68) 94 Mechanical Ventilator 100.00 11/03/20 19:05 82 19 78/66 (70) 94 Mechanical Ventilator 100.00 11/03/20 19:05 94 Mechanical Ventilator 80 11/03/20 19:04 78 11/03/20 18:50 78 18 101/86 94 11/03/20 18:30 96 81/45 11/03/20 18:13 96 68/34 11/03/20 14:20 94 NIV Bilevel 11/03/20 14:20 38.9 174 60 145/86 (105) 84 OxyMask 15.00 I & O 11/04/20 07:00 Intake Total 1000 ml Output Total 140 ml Balance 860 ml Height & Weight Height: '" Weight: lbs. oz. kg; 25.00 BMI Method: General Appearance: WD/WN, Moderate Distress HEENT: PERRL/EOMI, Other (Dry mucous membranes) Neck: Full Range of Motion, Supple Respiratory: Crackles, Decreased Breath Sounds, Respiratory Distress, Wheezing Cardiovascular: Irregularly Irregular, Tachycardia Capillary Refill: Less Than 3 Seconds Extremity: Normal Inspection, Normal Range of Motion, Non Tender, No Calf Tenderness, No Pedal Edema Neurologic/Psychiatric: Alert, Oriented x3, No Motor/Sensory Deficits Results Lab Laboratory Tests 11/03/20 14:45 11/04/20 02:41 Assessment/Plan Assessment/Plan Acute respiratory failure with COVID-19 and PNA -Continue ventilator -/ 85% -- Intubated 11/03 -Propofol 25, and Fentanyl at 50 -Proning -Decadron -CVP -Will not start Remdesivir secondary to pt being on vent and elevated LFTs. PNA with severe septic shock -IVF currently LR at 100 -Give a liter bolus of LR -Cefepime and vanco -Sultana cultures pending Hypotension -Levophed ARF -IVF -Monitor Afib RVR -Cardizem is off -Eliquis Acute GIB -Coffee ground emesis -Protonix BID -Pt is on Eliquis monitor closely NSTEMI -Cardiology is following PAULA SMALL DO Nov 04, 2020 05:12
[2020-11-04] MEDS ORDERED: WATER (STERILE) FOR INJECTION 10 ML ONE (05:35)
[2020-11-04] MEDS ORDERED: CEFEPIME 1 GM/10 ML (MAXIPIME) VIAL ONE (05:35)
[2020-11-04] MEDS ORDERED: PANTOPRAZOLE 40 MG (PROTONIX) VIAL ONE (05:42)
[2020-11-04] MEDS: CEFEPIME 1,000 MG/SWFI 10 ML IV PUSH IV SCH ×4 (06:04→18:18)
[2020-11-04] MEDS: inSUlin ASPART (NovoLOG) 1 UNIT/0.01 ML (CHARGE PER UNIT) SC SCH ×3 (06:05→17:59)
[2020-11-04] MEDS: PANTOPRAZOLE 40 MG (PROTONIX) VIAL IV SCH ×2 (06:05→20:16)
[2020-11-04] MEDS: CATHETER FLUSH 10 ML SYR IV SCH ×3 (06:07→22:05)
[2020-11-04 06:19] VITALS: BP 104/68
--- NOTE | 2020-11-04 06:59 | Occ Therapy Progress Note ---
Therapy Progress Note Pt is currently intubated and sedated. OT will monitor pt and initiate tx when pt is more medically stable and able to actively participate in skilled therapy. TISHA KOHLER Nov 04, 2020 06:59
--- NOTE | 2020-11-04 07:54 | Diagnostic Imaging Report ---
Indication: COVID pneumonia Upright chest shows mild cardiomegaly with normal vascularity. There are bilateral infiltrates with slight clearing in the right upper lobe and left lung since 11/03/2020. There has developed some consolidation in the right lower lobe which could be secondary to worsening of COVID pneumonia. Superimposed bacterial pneumonia cannot yet be excluded. There is no effusion or pneumothorax. ET tube, OG tube and IJ line remain in place. IMPRESSION: Mixed results with some clearing in the right upper lobe and left lung with more consolidation in the right lower lobe. Report was faxed to Yonatan/RN Infection Control by linda at 7:54am. Dictated by: Dictated on workstation # [id number]
--- NOTE | 2020-11-04 07:59 | Physical Therapy Progress Note ---
Therapy Progress Note PT order for evaluation received. Patient is currently intubated and sedated. Will start PT when patient is appropriate and able to participate. CLIFF MCKEE PT Nov 04, 2020 07:59
--- NOTE | 2020-11-04 09:30 | NUR ---
Pt transported to CT and back to room. During CT Central line was pulled out. Drips are now running through [facility], S. Dr. Villalba and Dr. Iqbal notified.
--- NOTE | 2020-11-04 09:44 | NUR ---
Pt is listed as [employer] and currently on vent. left message with dtr asking if pt would want to be anointed.
--- NOTE | 2020-11-04 09:56 | Diagnostic Imaging Report ---
PROCEDURE: CT chest without contrast. TECHNIQUE: Multiple contiguous axial images were obtained through the chest without the use of intravenous contrast. Auto Exposure Controls were utilized during the CT exam to meet ALARA standards for radiation dose reduction. INDICATION: Respiratory failure. FINDINGS: There are patchy alveolar infiltrates in both lungs. There is a left pleural effusion that layers out to a depth of 2 cm. There is a tiny right pleural effusion layering out to a depth of less than 1 cm. There is aortic atherosclerosis. There is coronary calcific atherosclerosis. There are some calcified mediastinal lymph nodes. IMPRESSION: Multifocal alveolar infiltrates in both lungs. The pattern and distribution are consistent with Covid pneumonia. The patient also has small bilateral pleural effusions. The report was faxed to Infection Control by jersey@9:55 AM. Dictated by: Dictated on workstation # [id number]
[2020-11-04] MEDS: APIXABAN 5 MG (ELIQUIS) TABLET PO SCH ×2 (10:14→20:09)
[2020-11-04 10:55] VITALS: BP 129/80
[2020-11-04] MEDS ORDERED: RT-ALBUTEROL INHALER HFA (VENTOLIN HFA) 18 GM IH PRN (12:00)
[2020-11-04] MEDS ORDERED: BUDE0.5A NEB (12:21)
[2020-11-04] MEDS ORDERED: FURO40TA4 PO (12:21)
[2020-11-04] MEDS ORDERED: LISI40TA PO (12:21)
[2020-11-04] MEDS ORDERED: APIX5TAB PO (12:21)
[2020-11-04] MEDS ORDERED: RT-ALBUINH IH (12:21)
[2020-11-04] MEDS ORDERED: UMEC62.5 INH (12:21)
[2020-11-04] MEDS ORDERED: ARFO15VI3 NEB (12:21)
[2020-11-04] MEDS ORDERED: DILT240C91 PO (12:21)
[2020-11-04] MEDS ORDERED: PRAV20TA3 PO (12:21)
--- NOTE | 2020-11-04 12:22 | NUR ---
UNABLE TO SPEAK WITH THE PT- I CALLED HIS DAUGHTER ARPAN (WHO IS AN [employer] EMPLOYEE) AND SHE BROUGHT ME HIS MEDICATION LIST. I USED THAT MED LIST AND THE EXT MED HISTORY TO COMPLETE THE MED REC I WILL ATTACH A COPY OF THE MED LIST TO THE PTS CHART.
--- NOTE | 2020-11-04 13:45 | Diagnostic Imaging Report ---
Indication: PICC line placement Portable chest 1:32 PM Right upper extremity PICC line tip projects over the SVC. ET tube projects over the trachea. NG tube enters the stomach. There are patchy infiltrates in both lungs. IMPRESSION: Right IJ central line has been removed. Right upper extremity PICC line has been placed with tip projecting over the SVC. Pulmonary infiltrates are unchanged from earlier in the day. Dictated by: Dictated on workstation # [id number]
[2020-11-04 14:33] LABS: BASOPHILS % (AUTO) 0 % (0-10); EOSINOPHILS % (AUTO) 0 % (0-10); HEMATOCRIT 38 % (40-54); HEMOGLOBIN 12.4 g/dL (13.3-17.7); LYMPHOCYTES # (AUTO) 0.8 10^3/uL (1.0-4.0); LYMPHOCYTES % (AUTO) 4 % (12-44); MEAN CORPUSCULAR HEMOGLOBIN 30 pg (25-34); MEAN CORPUSCULAR HGB CONC 33 g/dL (32-36); MEAN CORPUSCULAR VOLUME 92 fL (80-99); MEAN PLATELET VOLUME 11.2 fL (9.0-12.2); MONOCYTES # (AUTO) 0.5 10^3/uL (0.0-1.0); MONOCYTES % (AUTO) 2 % (0-12); NEUTROPHILS # (AUTO) 19.1 10^3/uL (1.8-7.8); NEUTROPHILS % (AUTO) 93 % (42-75); PLATELET COUNT 182 10^3/uL (130-400); WHITE BLOOD COUNT 20.5 10^3/uL (4.3-11.0)
[2020-11-04] MEDS: RT-ALBUTEROL INHALER HFA (VENTOLIN HFA) 18 GM IH SCH ×3 (14:33→22:52)
[2020-11-04 14:52] LABS: ALBUMIN 2.9 GM/DL (3.2-4.5); BILIRUBIN,TOTAL 0.5 MG/DL (0.1-1.0); CALCIUM 7.9 MG/DL (8.5-10.1); CREATININE SERUM 1.7 MG/DL (0.60-1.30); PHOSPHORUS 3.2 MG/DL (2.3-4.7); POTASSIUM 4.1 MMOL/L (3.6-5.0); TOTAL PROTEIN 6.2 GM/DL (6.4-8.2)
--- NOTE | 2020-11-04 14:59 | NUR ---
Received dietary consult for vent status. Note pt has an active GI bleed, per chart review. Would not recommend TF at this time. Will continue to follow and reassess as pt needs, intake, and status change. Will continue to follow and reassess as pt needs, intake, and status change. Eyad Segura, MS RD LD [phone] cell
[2020-11-04] MEDS ORDERED: NS IV 500 ML 500 ML ONE (15:53)
--- NOTE | 2020-11-04 15:56 | Progress Note - Cardiology ---
Cardiology SOAP Progress Note Subjective: Intubated and on mech vent Objective: I&O/Vital Signs 11/04/20 11/04/20 11/04/20 11/04/20 04:00 04:32 04:32 05:00 Temp 35.9 36.1 Pulse 67 67 78 Resp 13 15 B/P (MAP) 111/69 (83) 111/69 106/66 110/67 (80) Pulse Ox 95 94 O2 Delivery Mechanical Ventilator Mechanical Ventilator O2 Flow Rate 85.00 85.00 11/04/20 11/04/20 11/04/20 11/04/20 06:00 06:19 07:00 07:25 Temp 36.4 36.5 Pulse 66 79 64 53 Resp 24 28 24 B/P (MAP) 109/63 (83) 120/77 (91) Pulse Ox 94 100 97 O2 Delivery Mechanical Ventilator Mechanical Ventilator O2 Flow Rate 85.00 85.00 FiO2 85 11/04/20 11/04/20 11/04/20 11/04/20 08:00 08:34 09:00 09:00 Temp 36.4 36.4 Pulse 70 69 73 Resp 21 25 B/P (MAP) 98/66 (77) 105/63 100/60 (73) Pulse Ox 98 96 93 O2 Delivery Mechanical Ventilator Mechanical Ventilator Mechanical Ventilator O2 Flow Rate 85.00 85.00 FiO2 75 11/04/20 11/04/20 11/04/20 11/04/20 09:43 10:00 10:15 10:55 Temp 37.1 37.1 Pulse 75 71 71 75 Resp 23 24 B/P (MAP) 134/82 (99) 129/80 Pulse Ox 93 96 93 O2 Delivery Mechanical Ventilator O2 Flow Rate 85.00 FiO2 100 85 11/04/20 11/04/20 11/04/20 11/04/20 11:00 12:00 12:59 13:00 Temp 37.1 37.2 37.2 Pulse 67 68 67 70 Resp 20 20 20 B/P (MAP) 108/70 (83) 104/71 (82) 114/69 111/71 (84) Pulse Ox 100 100 100 O2 Delivery Mechanical Ventilator Mechanical Ventilator Mechanical Ventilator O2 Flow Rate 85.00 85.00 85.00 11/04/20 11/04/20 11/04/20 11/04/20 13:24 14:00 14:19 14:33 Temp 37.3 Pulse 64 67 67 69 Resp 21 24 B/P (MAP) 103/57 (72) 98/59 Pulse Ox 100 97 O2 Delivery Mechanical Ventilator O2 Flow Rate 85.00 FiO2 80 11/04/20 15:00 Temp 37.4 Pulse 73 Resp 19 B/P (MAP) 120/65 (83) Pulse Ox 99 O2 Delivery Mechanical Ventilator O2 Flow Rate 85.00 11/04/20 00:00 Intake Total 1000 ml Output Total 90 ml Balance 910 ml Constitutional: other (on mech vent) Respiratory: other (bibasilar and mid zone coarse crackles, prolonged exp, scattered exp wheezes) Results/Procedures: Labs Laboratory Tests 11/03/20 16:47: Urine Color YELLOW, Urine Clarity CLEAR, Urine pH 5.0, Urine Specific [place] 1.025H, Urine Protein NEGATIVE, Urine Glucose (UA) NEGATIVE, Urine Ketones TRACEH, Urine Nitrite NEGATIVE, Urine Bilirubin NEGATIVE, Urine Urobilinogen 0.2, Urine Leukocyte Esterase NEGATIVE, Urine RBC (Auto) 1+H, Urine RBC 2-5H, Urine WBC 0-2, Urine Crystals PRESENTH, Urine Amorphous Sediment MOD PATRICK URATESH, Urine Bacteria TRACE, Urine Casts PRESENT, Urine Hyaline Casts 10-25H, Urine Mucus SMALLH, Urine Culture Indicated CULTURE PENDING 11/03/20 17:02: Lactic Acid Level 2.96*H 11/03/20 22:04: Lactic Acid Level 2.43*H 11/03/20 22:25: Blood Gas Puncture Site RIGHT RADIAL, Blood Gas Patient Temperature 37.4, Arterial Blood pH 7.31*L, Arterial Blood Partial Pressure CO2 47H, Arterial Blood Partial Pressure O2 64L, Arterial Blood HCO3 23, Arterial Blood Total CO2 24.0, Arterial Blood Oxygen Saturation 92L, Arterial Blood Base Excess -2.7L, Andrzej Test UNKNOWN, Blood Gas Ventilator Setting YES, Blood Gas Inspired Oxygen 100 11/03/20 23:03: Glucometer 288H 11/04/20 02:41: White Blood Count 23.0H, Red Blood Count 4.42, Hemoglobin 13.3, Hematocrit 41, Mean Corpuscular Volume 92, Mean Corpuscular Hemoglobin 30, Mean Corpuscular Hemoglobin Concent 33, Red Cell Distribution Width 13.5, Platelet Count 199, Mean Platelet Volume 11.1, Immature Granulocyte % (Auto) 1, Neutrophils (%) (Auto) 91H, Lymphocytes (%) (Auto) 6L, Monocytes (%) (Auto) 3, Eosinophils (%) (Auto) 0, Basophils (%) (Auto) 0, Neutrophils # (Auto) 20.8H, Lymphocytes # (Auto) 1.3, Monocytes # (Auto) 0.7, Eosinophils # (Auto) 0.0, Basophils # (Auto) 0.1, Immature Granulocyte # (Auto) 0.1, Blood Gas Puncture Site LEFT RADIAL, Blood Gas Patient Temperature 35.8, Arterial Blood pH 7.36L, Arterial Blood Partial Pressure CO2 39, Arterial Blood Partial Pressure O2 74L, Arterial Blood HCO3 22L, Arterial Blood Total CO2 23.0, Arterial Blood Oxygen Saturation 95, Arterial Blood Base Excess -3.0L, Andrzej Test POSITIVE, Blood Gas Ventilator Se tting YES, Blood Gas Inspired Oxygen 85, Sodium Level 135, Potassium Level 4.3, Chloride Level 101, Carbon Dioxide Level 20L, Anion Gap 14, Blood Urea Nitrogen 32H, Creatinine 2.29H, Estimat Glomerular Filtration Rate 27, BUN/Creatinine Ratio 14, Glucose Level 341H, Calcium Level 8.1L, Corrected Calcium 8.7, Phosphorus Level 3.3, Magnesium Level 2.1, Total Bilirubin 0.9, Aspartate Amino Transf (AST/SGOT) 172H, Alanine Aminotransferase (ALT/SGPT) 170H, Alkaline Phosphatase 90, Troponin I 0.410*H, Total Protein 6.6, Albumin 3.2 11/04/20 12:00: Glucometer 185H 11/04/20 14:15: White Blood Count 20.5H, Red Blood Count 4.14L, Hemoglobin 12.4L, Hematocrit 38L , Mean Corpuscular Volume 92, Mean Corpuscular Hemoglobin 30, Mean Corpuscular Hemoglobin Concent 33, Red Cell Distribution Width 13.4, Platelet Count 182, Mean Platelet Volume 11.2, Immature Granulocyte % (Auto) 1, Neutrophils (%) (Auto) 93H, Lymphocytes (%) (Auto) 4L, Monocytes (%) (Auto) 2, Eosinophils (%) (Auto) 0, Basophils (%) (Auto) 0, Neutrophils # (Auto) 19.1H, Lymphocytes # (Auto) 0.8L, Monocytes # (Auto) 0.5, Eosinophils # (Auto) 0.0, Basophils # (Auto) 0.0, Immature Granulocyte # (Auto) 0.1, Sodium Level 135, Potassium Level 4.1, Chloride Level 102, Carbon Dioxide Level 25, Anion Gap 8, Blood Urea Nitrogen 36H, Creatinine 1.70H, Estimat Glomerular Filtration Rate 39, BUN/Creatinine Ratio 21, Glucose Level 137H, Calcium Level 7.9L, Corrected Calcium 8.8, Phosphorus Level 3.2, Total Bilirubin 0.5, Aspartate Amino Transf (AST/SGOT) 75H, Alanine Aminotransferase (ALT/SGPT) 132H, Alkaline Phosphatase 76, Total Protein 6.2L, Albumin 2.9L Microbiology 11/03/20 Blood Culture - Preliminary, Resulted Gram Positive Cocci 11/03/20 Urine Culture - Final, Complete NO GROWTH 11/03/20 Influenza Types A,B Antigen (MARIELENA) - Final, Complete Laboratory Tests 11/03/20 14:45 11/04/20 02:41 11/04/20 14:15 A/P: Assessment: Ac resp failure due to bilateral COVID-19 pneumonia Type II NV due to hypoxia due to ac resp failure Acute renal insufficiency: KOREY 2 Chronic atrial fib with a rapid vent response, currently controlled Chronically abnormal ECG: A Fib with atypical bundle branch block, old ASMI cannot be excluded, unchanged (except for minor differences in lead placement) compared to ECGs of Aug 2020 (done at [facility], [place], [place]) Minimal troponin elevation is likely due to hypoxia from COVID-19 pneumonia that has led to ac resp failure and hypoxia LVEF reported to be normal on echo done at [facility] in 2019 H/o COPD Chronic apixaban anticoag Plan: * ECG is chronically abnormal. Minimal troponin elevation is likely due to hypoxia from COVID-19 pneumonia that has led to ac resp failure and hypoxia * Continue apixaban * iv dilt and/or beta-michael for vent rate control, if needed and if tolerated * Treatment of COVID-19 and associated complications is with the Hospitalist and ICU services * Monitor labs * Prognosis is guarded KIM BUSCH MD [facility] CCDS Nov 04, 2020 15:56
[2020-11-04 16:20] VITALS: BP 113/73
[2020-11-04 16:25] VITALS: BP 119/78
[2020-11-04 16:30] VITALS: BP 109/65
[2020-11-04 16:35] VITALS: BP 121/74
[2020-11-04] MEDS: fentaNYL DRIP PRE-MIX 250 ML IV SCH (17:00)
[2020-11-04] MEDS: dilTIAZem DRIP 125 MG/125 ML DRIP IV SCH (19:34)
[2020-11-04] MEDS: VANCOMYCIN 1250 MG/NS 250 ML IVPB IV SCH ×2 (20:09)
--- NOTE | 2020-11-05 00:16 | NUR ---
pt opened eyes and able to follow commands
[2020-11-05] MEDS: inSUlin ASPART (NovoLOG) 1 UNIT/0.01 ML (CHARGE PER UNIT) SC SCH ×5 (00:17→23:36)
[2020-11-05 01:56] LABS: BASOPHILS % (AUTO) 0 % (0-10); EOSINOPHILS % (AUTO) 0 % (0-10); HEMATOCRIT 35 % (40-54); HEMOGLOBIN 11.6 g/dL (13.3-17.7); LYMPHOCYTES # (AUTO) 0.6 10^3/uL (1.0-4.0); LYMPHOCYTES % (AUTO) 4 % (12-44); MEAN CORPUSCULAR HEMOGLOBIN 31 pg (25-34); MEAN CORPUSCULAR HGB CONC 33 g/dL (32-36); MEAN CORPUSCULAR VOLUME 92 fL (80-99); MEAN PLATELET VOLUME 11.6 fL (9.0-12.2); MONOCYTES # (AUTO) 0.4 10^3/uL (0.0-1.0); MONOCYTES % (AUTO) 3 % (0-12); NEUTROPHILS # (AUTO) 14.4 10^3/uL (1.8-7.8); NEUTROPHILS % (AUTO) 93 % (42-75); PLATELET COUNT 158 10^3/uL (130-400); WHITE BLOOD COUNT 15.5 10^3/uL (4.3-11.0)
[2020-11-05] MEDS: NOREPINEPHRINE 4 MG/250 ML 250 ML IV SCH ×3 (01:58→16:15)
[2020-11-05] MEDS: meTOprolol 5 MG/5 ML (LOPRESSOR) VIAL IV SCH ×8 (02:01→23:00)
[2020-11-05 02:07] LABS: ABG BASE EXCESS -2.9 MMOL/L (-2.5-2.5); ABG OXYGEN SATURATION 90 % (94-100); ABG PCO2 39 MMHG (35-45); ABG PH 7.36 (7.37-7.43); ABG PO2 59 MMHG (79-93)
[2020-11-05 02:09] LABS: POTASSIUM 4.1 MMOL/L (3.6-5.0)
[2020-11-05 02:10] LABS: CALCIUM 7.2 MG/DL (8.5-10.1)
[2020-11-05 02:11] LABS: ALLENS TEST YES-POS; INSPIRED O2 60%; PATIENT TEMP 36.2; VENTILATOR YES
[2020-11-05 02:15] LABS: CREATININE SERUM 1.3 MG/DL (0.60-1.30); PHOSPHORUS 3.2 MG/DL (2.3-4.7)
[2020-11-05] MEDS: RT-ALBUTEROL INHALER HFA (VENTOLIN HFA) 18 GM IH SCH ×6 (02:28→21:33)
--- NOTE | 2020-11-05 04:35 | Pulmonary Progress Note ---
Subjective Time Seen by a Provider: 04:30 Subjective/Events-last exam Pt is requiring a lot of oxygen and peep . Sepsis Event Evaluation Height, Weight, BMI Height: '" Weight: lbs. oz. kg; 25.00 BMI Method: Focused Exam Lactate Level 11/03/20 14:45: Lactic Acid Level 4.00*H 11/03/20 17:02: Lactic Acid Level 2.96*H 11/03/20 22:04: Lactic Acid Level 2.43*H Exam Exam Vital Signs Date Time Temp Pulse Resp B/P (MAP) Pulse Ox O2 Delivery O2 Flow Rate FiO2 11/05/20 02:29 71 20 96 70 11/05/20 02:15 71 19 105/57 (73) 90 Mechanical Ventilator 60.00 11/05/20 02:00 72 20 113/62 (71) 91 Mechanical Ventilator 60.00 11/05/20 01:58 71 119/55 11/05/20 01:45 73 20 119/55 (79) 90 Mechanical Ventilator 60.00 11/05/20 01:30 70 19 115/70 (88) 90 Mechanical Ventilator 60.00 11/05/20 01:15 74 19 110/64 (77) 90 Mechanical Ventilator 60.00 11/05/20 01:00 76 20 115/66 (74) 90 Mechanical Ventilator 60.00 11/05/20 00:54 72 11/05/20 00:45 71 20 108/58 (74) 92 Mechanical Ventilator 60.00 11/05/20 00:30 78 22 102/55 (76) 94 Mechanical Ventilator 60.00 11/05/20 00:15 87 21 104/52 (71) 93 Mechanical Ventilator 60.00 11/05/20 00:05 94 20 94/56 (65) 97 Mechanical Ventilator 60.00 11/05/20 00:00 121/71 (76) Mechanical Ventilator 60.00 11/04/20 22:52 70 20 96 70 11/04/20 22:30 71 20 130/74 (91) 96 Mechanical Ventilator 85.00 11/04/20 22:25 70 19 128/71 (97) 96 Mechanical Ventilator 85.00 11/04/20 22:20 75 20 126/75 (90) 96 Mechanical Ventilator 85.00 11/04/20 22:15 76 19 131/74 (91) 96 Mechanical Ventilator 85.00 11/04/20 22:10 68 20 127/70 (89) 96 Mechanical Ventilator 85.00 11/04/20 22:05 66 20 118/68 (85) 97 Mechanical Ventilator 85.00 11/04/20 22:00 72 20 128/73 (84) 97 Mechanical Ventilator 85.00 11/04/20 21:55 73 20 113/73 (90) 97 Mechanical Ventilator 85.00 11/04/20 21:50 71 19 130/78 (87) 97 Mechanical Ventilator 85.00 11/04/20 21:45 71 19 123/89 (101) 97 Mechanical Ventilator 85.00 11/04/20 21:40 71 20 124/72 (85) 97 Mechanical Ventilator 85.00 11/04/20 21:35 77 20 128/68 (90) 97 Mechanical Ventilator 85.00 11/04/20 21:30 67 20 124/75 (88) 97 Mechanical Ventilator 85.00 11/04/20 21:25 70 19 121/76 (86) 97 Mechanical Ventilator 85.00 11/04/20 21:20 70 20 119/70 (86) 97 Mechanical Ventilator 85.00 11/04/20 21:15 74 20 124/75 (87) 97 Mechanical Ventilator 85.00 11/04/20 21:10 68 20 124/67 (85) 97 Mechanical Ventilator 85.00 11/04/20 21:05 71 19 121/75 (88) 97 Mechanical Ventilator 85.00 11/04/20 21:00 71 19 128/75 (93) 97 Mechanical Ventilator 85.00 11/04/20 21:00 93 Mechanical Ventilator 85 11/04/20 20:08 75 11/04/20 20:00 37.2 72 19 107/62 (77) 97 Mechanical Ventilator 85.00 11/04/20 19:00 37.4 68 20 117/64 (81) 96 Mechanical Ventilator 85.00 11/04/20 18:51 66 11/04/20 18:43 70 20 96 75 11/04/20 18:00 37.6 55 19 116/68 (84) 95 Mechanical Ventilator 85.00 11/04/20 17:59 37.6 11/04/20 17:01 37.5 11/04/20 17:00 37.5 70 21 118/80 (93) 94 Mechanical Ventilator 85.00 11/04/20 16:59 73 99/46 11/04/20 16:35 37.6 66 20 121/74 100 Mechanical Ventilator 80 11/04/20 16:30 37.6 67 20 109/65 100 Mechanical Ventilator 80 11/04/20 16:25 37.6 70 20 119/78 100 Mechanical Ventilator 80 11/04/20 16:20 37.6 69 20 113/73 100 Mechanical Ventilator 80 11/04/20 16:00 37.5 67 20 120/66 (84) 100 Mechanical Ventilator 85.00 11/04/20 15:00 37.4 73 19 120/65 (83) 99 Mechanical Ventilator 85.00 11/04/20 14:33 69 24 97 80 11/04/20 14:19 67 98/59 11/04/20 14:00 37.3 67 21 103/57 (72) 100 Mechanical Ventilator 85.00 11/04/20 13:24 64 11/04/20 13:00 37.2 70 20 111/71 (84) 100 Mechanical Ventilator 85.00 11/04/20 12:59 67 114/69 11/04/20 12:00 37.2 68 20 104/71 (82) 100 Mechanical Ventilator 85.00 11/04/20 11:00 37.1 67 20 108/70 (83) 100 Mechanical Ventilator 85.00 11/04/20 10:55 37.1 75 93 85 11/04/20 10:15 71 129/80 11/04/20 10:00 37.1 71 24 134/82 (99) 96 Mechanical Ventilator 85.00 11/04/20 09:43 75 23 93 100 11/04/20 09:00 93 Mechanical Ventilator 75 11/04/20 09:00 36.4 73 25 100/60 (73) 96 Mechanical Ventilator 85.00 11/04/20 08:34 69 105/63 11/04/20 08:00 36.4 70 21 98/66 (77) 98 Mechanical Ventilator 85.00 11/04/20 07:25 53 11/04/20 07:00 36.5 64 24 120/77 (91) 97 Mechanical Ventilator 85.00 11/04/20 06:19 79 28 100 85 11/04/20 06:00 36.4 66 24 109/63 (83) 94 Mechanical Ventilator 85.00 11/04/20 05:00 36.1 78 15 110/67 (80) 94 Mechanical Ventilator 85.00 11/04/20 04:32 106/66 11/04/20 04:32 67 111/69 I & O 11/05/20 07:00 Intake Total 1000 ml Output Total 625 ml Balance 375 ml Height & Weight Height: '" Weight: lbs. oz. kg; 25.00 BMI Method: General Appearance: WD/WN, Moderate Distress HEENT: PERRL/EOMI, Other (Dry mucous membranes) Neck: Full Range of Motion, Supple Respiratory: Crackles, Decreased Breath Sounds, Respiratory Distress, Wheezing Cardiovascular: Irregularly Irregular, Tachycardia Capillary Refill: Less Than 3 Seconds Extremity: Normal Inspection, Normal Range of Motion, Non Tender, No Calf Tenderness, No Pedal Edema Neurologic/Psychiatric: Alert, Oriented x3, No Motor/Sensory Deficits Results Lab Laboratory Tests 11/03/20 14:45 11/04/20 02:41 11/04/20 14:15 11/05/20 01:49 Assessment/Plan Assessment/Plan Acute respiratory failure with COVID-19 PNA and ARDS -Continue ventilator -// 85% -- Intubated 11/03 --- -Increase PEEP to 16 - Update 0730 Increase PEEP to 20 -Propofol 30, and Fentanyl at 100 -Decrease Fentanyl down to 50 -Will start paralytic -Proning pt -Hold TF -Decadron -CVP -- done -Will not start Remdesivir secondary to pt being on vent and elevated LFTs. PNA with severe septic shock -LR at 100 -Cefepime and vanco -Obtain arterial line -Sultana cultures pending Bacteremia with gram positive cocci -Continue Vancomycin Metabolic acidosis -Check LA Hypotension -Levophed gtt ARF -IVF -Monitor Afib RVR -Cardizem is off -Eliquis Acute GIB - Hb is stable -Protonix BID -Pt is on Eliquis monitor closely NSTEMI -Cardiology is following UPDATE: pt became more hypoxic and tachycardic with HR 150's. Will restart Cardizem ggt after giving 10mg bolus IV. 50mg of Rocuronium followed by Nimbex gtt. I called and updated daughter on pt's current condition and prognosis. Critical Care: Critically Ill Patient Time spent with patient (mins): 60 APULA SMALL DO Nov 05, 2020 04:35
[2020-11-05] MEDS: VASOPRESSIN INJECTION 20 UNIT in NS (IVPB) 100 ML IV SCH ×3 (05:41→22:09)
[2020-11-05] MEDS: CATHETER FLUSH 10 ML SYR IV SCH ×3 (06:03→22:10)
[2020-11-05] MEDS: CEFEPIME 1,000 MG/SWFI 10 ML IV PUSH IV SCH ×4 (06:11→17:51)
[2020-11-05] MEDS: LACTATED RINGERS 1,000 ML IV SCH ×2 (06:56→15:56)
[2020-11-05] MEDS ORDERED: ROCURONIUM 10 MG/ML 5 ML SYRINGE IV ONE (07:16)
[2020-11-05] MEDS ORDERED: PHARMACY TO DOSE IV SCH ×2 (07:30→07:45)
[2020-11-05] MEDS ORDERED: NS IV 1000 ML 1,000 ML ONE (07:40)
[2020-11-05] MEDS: dilTIAZem DRIP 125 MG/125 ML DRIP IV SCH (07:43)
[2020-11-05] MEDS ORDERED: dilTIAZem DRIP PRE-MIX 125 ML IV SCH (07:45)
[2020-11-05] MEDS: fentaNYL DRIP PRE-MIX 250 ML IV SCH ×3 (08:19→20:37)
--- NOTE | 2020-11-05 08:25 | Physical Therapy Progress Note ---
Therapy Progress Note Patient is currently intubated and sedated. Will start PT when patient is appropriate and able to participate. JOSE MUNROE PT Nov 05, 2020 08:25
--- NOTE | 2020-11-05 08:40 | Diagnostic Imaging Report ---
INDICATION: Pneumonia, COVID positive, atrial fibrillation with rapid ventricular response. TECHNIQUE: Single view chest 3:51 AM. CORRELATION STUDY: 11/04/2020 FINDINGS: Endotracheal tube, gastric tube, and right-sided central line appearing stable. Heart size remains enlarged. Mediastinum prominent. Vasculature appears increased from prior. Underlying perihilar edema suggested. Scattered bilateral patchy opacities throughout both lung barrera most pronounced in the mid and lower lung barrera, left slightly greater than right, persist. May be slightly greater involving the right lung base. Probable bilateral pleural effusions. IMPRESSION: 1. Stable support lines and tubes. 2. Scattered bilateral pulmonary opacities likely a combination of infiltrate and edema. Findings appearing slightly increased. 3. Stable cardiac enlargement with vasculature appearing increased from prior study as well. Dictated by: Dictated on workstation # [id number]
--- NOTE | 2020-11-05 08:42 | Anesthesia-Procedure Note ---
Procedures/Interventions Procedure Start/Stop/Diagnosis Date of Procedure: Nov 05, 2020 Start Time: 08:10 Referring Physician: susan Brief History Stop Time: 08:20 Arterial Line Arterial Line Catheter: 20G Type: Radial Location: Right Procedure: prepped, draped in sterile fashion (chloraprep), good wave-form was obtained, patient tolerated procedure well, no immediate complications, post procedure area cleaned, post procedure dressing applied CHRISTIANO WING CRNA Nov 05, 2020 08:42
[2020-11-05] MEDS ORDERED: NOREPINEPHRINE 4 MG/250 ML 250 ML IV ONE (08:57)
[2020-11-05] MEDS: MIDAZOLAM DRIP PRE-MIX 100 ML IV SCH (09:29)
[2020-11-05] MEDS: APAP 325 MG/10.15 ML LIQ (TYLENOL) UDC PO PRN (09:31)
[2020-11-05] MEDS: APIXABAN 5 MG (ELIQUIS) TABLET PO SCH ×2 (09:31→20:37)
[2020-11-05] MEDS: CISATRACURIUM INJECTION 100 MG in NS (IVPB) 200 ML IV SCH ×3 (09:33→17:52)
[2020-11-05] MEDS: PANTOPRAZOLE 40 MG (PROTONIX) VIAL IV SCH ×2 (09:33→20:38)
--- NOTE | 2020-11-05 12:57 | Progress Note - Cardiology ---
Cardiology SOAP Progress Note [facility] Objective: I&O/Vital Signs 11/05/20 11/05/20 11/05/20 11/05/20 01:00 01:15 01:30 01:45 Pulse 76 74 70 73 Resp 20 19 19 20 B/P (MAP) 115/66 (74) 110/64 (77) 115/70 (88) 119/55 (79) Pulse Ox 90 90 90 90 O2 Delivery Mechanical Ventilator Mechanical Ventilator Mechanical Ventilator Mechanical Ventilator O2 Flow Rate 60.00 60.00 60.00 60.00 11/05/20 11/05/20 11/05/20 11/05/20 01:58 02:00 02:15 02:29 Pulse 71 72 71 71 Resp 20 19 20 B/P (MAP) 119/55 113/62 (71) 105/57 (73) Pulse Ox 91 90 96 O2 Delivery Mechanical Ventilator Mechanical Ventilator O2 Flow Rate 60.00 60.00 FiO2 70 11/05/20 11/05/20 11/05/20 11/05/20 02:31 02:45 03:00 03:15 Pulse 67 75 77 76 Resp 19 19 19 B/P (MAP) 105/62 (70) 106/66 (79) 101/60 (75) Pulse Ox 93 94 94 O2 Delivery Mechanical Ventilator Mechanical Ventilator Mechanical Ventilator Mechanical Ventilator O2 Flow Rate 60.00 70.00 70.00 70.00 11/05/20 11/05/20 11/05/20 11/05/20 03:30 03:31 03:45 04:00 Pulse 72 72 73 71 Resp 19 20 20 19 B/P (MAP) 107/71 (92) 108/64 (78) 107/66 (75) Pulse Ox 95 95 95 94 O2 Delivery Mechanical Ventilator Mechanical Ventilator Mechanical Ventilator Mechanical Ventilator O2 Flow Rate 70.00 70.00 70.00 70.00 11/05/20 11/05/20 11/05/20 11/05/20 04:15 04:30 04:31 04:45 Pulse 70 71 73 64 Resp 19 19 20 19 B/P (MAP) 115/60 (76) 116/64 (82) 112/56 (67) Pulse Ox 94 95 95 95 O2 Delivery Mechanical Ventilator Mechanical Ventilator Mechanical Ventilator Mechanical Ventilator O2 Flow Rate 70.00 70.00 70.00 70.00 1/7/21 11/05/20 11/05/20 11/05/20 05:00 05:15 05:30 05:31 Pulse 66 79 80 81 Resp 20 19 20 B/P (MAP) 101/65 (83) 102/48 (57) 91/52 (65) Pulse Ox 92 92 91 O2 Delivery Mechanical Ventilator Mechanical Ventilator Mechanical Ventilator Mechanical Ventilator O2 Flow Rate 70.00 70.00 70.00 70.00 11/05/20 11/05/20 11/05/20 11/05/20 05:45 05:58 06:00 06:13 Pulse 82 67 81 67 Resp 22 15 B/P (MAP) 101/39 (70) 106/34 (84) 105/57 Pulse Ox 94 95 O2 Delivery Mechanical Ventilator Mechanical Ventilator O2 Flow Rate 70.00 70.00 FiO2 100 11/05/20 11/05/20 11/05/20 11/05/20 06:15 06:58 07:00 07:22 Temp 37.9 Pulse 84 117 154 Resp 18 20 B/P (MAP) 86/68 (77) 109/75 (86) Pulse Ox 94 92 O2 Delivery Mechanical Ventilator Mechanical Ventilator O2 Flow Rate 70.00 70.00 11/05/20 11/05/20 11/05/20 11/05/20 07:27 08:00 09:00 09:00 Temp 38.4 Pulse 56 64 Resp 20 16 B/P (MAP) 109/52 (71) Pulse Ox 97 93 94 O2 Delivery Mechanical Ventilator Mechanical Ventilator Mechanical Ventilator O2 Flow Rate 70.00 70.00 FiO2 100 11/05/20 11/05/20 11/05/20 11/05/20 09:28 09:29 09:31 10:00 Temp 39.0 Pulse 63 66 65 Resp 20 19 B/P (MAP) 98/48 98/48 Pulse Ox 91 O2 Delivery Mechanical Ventilator O2 Flow Rate 70.00 11/05/20 11/05/20 11/05/20 11/05/20 10:12 11:00 11:49 12:00 Temp 38.6 Pulse 73 83 68 Resp 20 20 19 B/P (MAP) Pulse Ox 96 97 96 O2 Delivery Mechanical Ventilator Mechanical Ventilator O2 Flow Rate 90.00 90.00 FiO2 100 11/05/20 11/05/20 12:18 12:25 Pulse 68 72 B/P (MAP) 116/48 114/46 11/05/20 00:00 Intake Total 650 ml Output Total 350 ml Balance 300 ml Constitutional: other (on [facility] vent) Results/Procedures: Labs Laboratory Tests 11/04/20 14:15: White Blood Count 20.5H, Red Blood Count 4.14L, Hemoglobin 12.4L, Hematocrit 38L , Mean Corpuscular Volume 92, Mean Corpuscular Hemoglobin 30, Mean Corpuscular Hemoglobin Concent 33, Red Cell Distribution Width 13.4, Platelet Count 182, Mean Platelet Volume 11.2, Immature Granulocyte % (Auto) 1, Neutrophils (%) (Auto) 93H, Lymphocytes (%) (Auto) 4L, Monocytes (%) (Auto) 2, Eosinophils (%) (Auto) 0, Basophils (%) (Auto) 0, Neutrophils # (Auto) 19.1H, Lymphocytes # (Auto) 0.8L, Monocytes # (Auto) 0.5, Eosinophils # (Auto) 0.0, Basophils # (Auto) 0.0, Immature Granulocyte # (Auto) 0.1, Sodium Level 135, Potassium Level 4.1, Chloride Level 102, Carbon Dioxide Level 25, Anion Gap 8, Blood Urea Nitrogen 36H, Creatinine 1.70H, Estimat Glomerular Filtration Rate 39, BUN/Creatinine Ratio 21, Glucose Level 137H, Calcium Level 7.9L, Corrected Calcium 8.8, Phosphorus Level 3.2, Total Bilirubin 0.5, Aspartate Amino Transf (AST/SGOT) 75H, Alanine Aminotransferase (ALT/SGPT) 132H, Alkaline Phosphatase 76, Total Protein 6.2L, Albumin 2.9L 11/04/20 17:45: Glucometer 149H 11/04/20 23:53: Glucometer 159H 11/05/20 01:49: White Blood Count 15.5H, Red Blood Count 3.78L, Hemoglobin 11.6L, Hematocrit 35L , Mean Corpuscular Volume 92, Mean Corpuscular Hemoglobin 31, Mean Corpuscular Hemoglobin Concent 33, Red Cell Distribution Width 13.4, Platelet Count 158, Mean Platelet Volume 11.6, Immature Granulocyte % (Auto) 1, Neutrophils (%) (Auto) 93H, Lymphocytes (%) (Auto) 4L, Monocytes (%) (Auto) 3, Eosinophils (%) (Auto) 0, Basophils (%) (Auto) 0, Neutrophils # (Auto) 14.4H, Lymphocytes # (Auto) 0.6L, Monocytes # (Auto) 0.4, Eosinophils # (Auto) 0.0, Basophils # (Auto) 0.0, Immature Granulocyte # (Auto) 0.1, Sodium Level 129L, Potassium Level 4.1, Chloride Level 99, Carbon Dioxide Level 15L, Anion Gap 15H, Blood Urea Nitrogen 36H, Creatinine 1.30, Estimat Glomerular Filtration Rate 53, BUN/Creatinine Ratio 28, Glucose Level 226H, Calcium Level 7.2L, Phosphorus Level 3.2, Magnesium Level 2.0, Triglycerides Level 841H, Procalcitonin 16.50H 11/05/20 01:55: Blood Gas Puncture Site RR, Blood Gas Patient Temperature 36.2, Arterial Blood pH 7.36L, Arterial Blood Partial Pressure CO2 39, Arterial Blood Partial Press ure O2 59L, Arterial Blood HCO3 22L, Arterial Blood Total CO2 23.0, Arterial Blood Oxygen Saturation 90L, Arterial Blood Base Excess -2.9L, Andrzej Test YES- POS, Blood Gas Ventilator Setting YES, Blood Gas Inspired Oxygen 60% 11/05/20 05:18: D-Dimer 1.28H, Lactic Acid Level 1.99 11/05/20 05:25: Glucometer 219H 11/05/20 11:26: Glucometer 129H Microbiology 11/03/20 MRSA Screen - Final, Complete MRSA not isolated 11/03/20 Blood Culture - Preliminary, Resulted Staph, Coag Neg ([employer] LIAISON) 11/03/20 Urine Culture - Final, Complete NO GROWTH Laboratory Tests 11/03/20 14:45 11/04/20 02:41 11/04/20 14:15 11/05/20 01:49 A/P: Assessment: Ac resp failure due to bilateral COVID-19 pneumonia, managed by Hosp and ICU services Type II OK due to hypoxia due to ac resp failure Acute renal insufficiency: KOREY 2 and metabolic acid, managed by Hosp and ICU services Chronic atrial fib with a rapid vent response, currently controlled Chronically abnormal ECG: A Fib with atypical bundle branch block, old ASMI cannot be excluded, unchanged (except for minor differences in lead placement) compared to ECGs of Aug 2020 (done at [facility], [facility], [place]) LVEF reported to be normal on echo done at [facility] in 2019 H/o COPD Chronic apixaban anticoag Plan: * Prognosis remains guarded * Continue apixaban * iv dilt and/or beta-michael for vent rate control, if needed and if tolerated * Treatment of COVID-19 and associated complications is with the Hospitalist and ICU services * Monitor labs KIM BUSCH MD FACP [facility] Nov 05, 2020 12:57
--- NOTE | 2020-11-05 15:23 | NUR ---
Note pt currently NPO x2d, per chart review. Note Dr. Iqbal would like to reevaluate pt on 11/06 and determine TF plan if needed. Will continue to follow and reassess as pt needs, intake, and status change. Eyad Segura, MS RD LD [phone] cell
[2020-11-05] MEDS ORDERED: TROUGH ORDER-PHARMACY XX ONE (19:00)
[2020-11-05] MEDS: VANCOMYCIN 1250 MG/NS 250 ML IVPB IV SCH ×2 (22:09)
[2020-11-06] MEDS: CISATRACURIUM INJECTION 100 MG in NS (IVPB) 200 ML IV SCH ×4 (00:34→21:52)
[2020-11-06] MEDS: fentaNYL DRIP PRE-MIX 250 ML IV SCH ×4 (00:35→16:55)
[2020-11-06 00:56] VITALS: BP 113/58
[2020-11-06] MEDS: NOREPINEPHRINE 4 MG/250 ML 250 ML IV SCH ×3 (02:30→18:08)
[2020-11-06] MEDS: meTOprolol 5 MG/5 ML (LOPRESSOR) VIAL IV SCH ×8 (02:31→22:50)
[2020-11-06] MEDS: LACTATED RINGERS 1,000 ML IV SCH ×2 (02:32→22:50)
[2020-11-06 02:41] LABS: BASOPHILS % (AUTO) 0 % (0-10); EOSINOPHILS % (AUTO) 0 % (0-10); HEMATOCRIT 36 % (40-54); HEMOGLOBIN 11.5 g/dL (13.3-17.7); LYMPHOCYTES # (AUTO) 0.7 10^3/uL (1.0-4.0); LYMPHOCYTES % (AUTO) 6 % (12-44); MEAN CORPUSCULAR HEMOGLOBIN 30 pg (25-34); MEAN CORPUSCULAR HGB CONC 32 g/dL (32-36); MEAN CORPUSCULAR VOLUME 93 fL (80-99); MEAN PLATELET VOLUME 11.8 fL (9.0-12.2); MONOCYTES # (AUTO) 0.5 10^3/uL (0.0-1.0); MONOCYTES % (AUTO) 4 % (0-12); NEUTROPHILS % (AUTO) 90 % (42-75); PLATELET COUNT 178 10^3/uL (130-400); WHITE BLOOD COUNT 12.2 10^3/uL (4.3-11.0)
[2020-11-06 02:49] LABS: ABG BASE EXCESS -3.2 MMOL/L (-2.5-2.5); ABG OXYGEN SATURATION 99 % (94-100); ABG PCO2 47 MMHG (35-45); ABG PO2 121 MMHG (79-93)
[2020-11-06 02:51] LABS: ABG PH 7.29 (7.37-7.43); ALLENS TEST ART LINE; INSPIRED O2 65%; PATIENT TEMP 36.2; VENTILATOR YES
[2020-11-06 02:52] LABS: POTASSIUM 4.3 MMOL/L (3.6-5.0)
[2020-11-06 02:53] LABS: CALCIUM 7.4 MG/DL (8.5-10.1)
[2020-11-06 02:58] LABS: CREATININE SERUM 1.26 MG/DL (0.60-1.30); PHOSPHORUS 3.6 MG/DL (2.3-4.7)
[2020-11-06 03:00] LABS: MAGNESIUM 2.3 MG/DL (1.6-2.4)
--- NOTE | 2020-11-06 04:26 | Diagnostic Imaging Report ---
Indication: Lower respiratory infection Portable chest 2:17 AM There is ET tube projects over the trachea. NG tube projects over the stomach. Right extremity PICC line tip projects over the SVC. There are patchy pulmonary infiltrates in the lungs. These appear slightly improved compared to the previous day. IMPRESSION: Patchy pulmonary infiltrates appear improved compared to the previous day. Dictated by: Dictated on workstation # [id number]
--- NOTE | 2020-11-06 04:36 | Pulmonary Progress Note ---
Subjective Time Seen by a Provider: 04:32 Subjective/Events-last exam Sedated on vent. Sepsis Event Evaluation Height, Weight, BMI Height: '" Weight: lbs. oz. kg; 25.00 BMI Method: Focused Exam Lactate Level 11/03/20 17:02: Lactic Acid Level 2.96*H 11/03/20 22:04: Lactic Acid Level 2.43*H 11/05/20 05:18: Lactic Acid Level 1.99 Exam Exam Vital Signs Date Time Temp Pulse Resp B/P (MAP) Pulse Ox O2 Delivery O2 Flow Rate FiO2 11/06/20 03:00 36.3 77 20 97 Mechanical Ventilator 80.00 11/06/20 02:30 76 11/06/20 02:00 36.3 84 20 95 Mechanical Ventilator 80.00 11/06/20 01:00 36.4 77 19 99 Mechanical Ventilator 80.00 11/06/20 01:00 Automatic Cuff 11/06/20 00:56 81 20 99 65 11/06/20 00:25 62 11/06/20 00:00 35.2 73 19 94/55 (68) 97 Mechanical Ventilator 80.00 11/05/20 23:00 35.0 56 19 119/70 (79) 97 Mechanical Ventilator 80.00 11/05/20 22:00 35.0 70 20 114/62 (84) 98 Mechanical Ventilator 80.00 11/05/20 21:33 60 20 99 80 11/05/20 21:00 93 Mechanical Ventilator 80 11/05/20 21:00 35.0 66 19 113/78 (88) 97 Mechanical Ventilator 80.00 11/05/20 20:00 35.2 66 20 127/78 (91) 96 Mechanical Ventilator 80.00 11/05/20 19:00 63 11/05/20 19:00 35.4 63 20 109/66 (73) 96 Mechanical Ventilator 80.00 11/05/20 17:00 68 15 96 Mechanical Ventilator 80.00 11/05/20 16:00 68 20 96 Mechanical Ventilator 80.00 11/05/20 15:00 68 20 97 Mechanical Ventilator 90.00 11/05/20 14:25 68 20 96 90 11/05/20 14:00 64 19 97 Mechanical Ventilator 90.00 11/05/20 13:00 68 19 96 Mechanical Ventilator 90.00 11/05/20 12:43 64 11/05/20 12:25 72 114/46 11/05/20 12:18 68 116/48 11/05/20 12:00 68 19 96 Mechanical Ventilator 90.00 11/05/20 11:49 38.6 11/05/20 11:20 38.6 11/05/20 11:00 83 20 97 Mechanical Ventilator 90.00 11/05/20 10:12 73 20 96 100 11/05/20 10:00 65 19 91 Mechanical Ventilator 70.00 11/05/20 09:31 39.0 11/05/20 09:29 66 20 98/48 11/05/20 09:28 63 98/48 11/05/20 09:00 64 16 94 Mechanical Ventilator 70.00 11/05/20 09:00 93 Mechanical Ventilator 100 11/05/20 08:00 56 20 109/52 (71) 97 Mechanical Ventilator 70.00 11/05/20 07:27 38.4 11/05/20 07:22 154 11/05/20 07:00 117 20 109/75 (86) 92 Mechanical Ventilator 70.00 11/05/20 06:58 37.9 11/05/20 06:15 84 18 86/68 (77) 94 Mechanical Ventilator 70.00 11/05/20 06:13 67 105/57 11/05/20 06:00 81 15 106/34 (84) 95 Mechanical Ventilator 70.00 11/05/20 05:58 67 22 94 100 11/05/20 05:45 82 101/39 (70) Mechanical Ventilator 70.00 11/05/20 05:31 81 20 91 Mechanical Ventilator 70.00 11/05/20 05:30 80 91/52 (65) Mechanical Ventilator 70.00 11/05/20 05:15 79 19 102/48 (57) 92 Mechanical Ventilator 70.00 11/05/20 05:00 66 20 101/65 (83) 92 Mechanical Ventilator 70.00 11/05/20 04:45 64 19 112/56 (67) 95 Mechanical Ventilator 70.00 I & O 11/06/20 07:00 Intake Total 1350 ml Output Total 1175 ml Balance 175 ml Height & Weight Height: '" Weight: lbs. oz. kg; 25.00 BMI Method: General Appearance: WD/WN, Moderate Distress HEENT: PERRL/EOMI, Other (Dry mucous membranes) Neck: Full Range of Motion, Supple Respiratory: Crackles, Decreased Breath Sounds, Respiratory Distress, Wheezing Cardiovascular: Irregularly Irregular, Tachycardia Capillary Refill: Less Than 3 Seconds Extremity: Normal Inspection, Normal Range of Motion, Non Tender, No Calf Ten derness, No Pedal Edema Neurologic/Psychiatric: Alert, Oriented x3, No Motor/Sensory Deficits Results Lab Laboratory Tests 11/04/20 14:15 11/05/20 01:49 11/06/20 02:27 Assessment/Plan Assessment/Plan Acute respiratory failure with COVID-19 PNA and ARDS -Continue ventilator -/ 80% -- Intubated 11/03 --- PEEP 20 -Propofol 10, and Fentanyl at 200, Versed 4 -Hold Nimbex -Proning pt -Hold TF and reevaluate 11/07 -Decadron -CVP -- done -Will not start Remdesivir secondary to pt being on vent and elevated LFTs. PNA with severe septic shock -LR at 100 -Cefepime and vanco - arterial line -Sultana cultures pending Bacteremia with gram positive cocci -Continue Vancomycin and cefepime Metabolic acidosis -Check LA Hypotension -Levophed gtt ARF -IVF -Monitor Afib RVR -Cardizem is off -Eliquis Acute GIB - Hb is stable -Protonix BID -Pt is on Eliquis monitor closely NSTEMI -Cardiology is following PAULA SMALL DO Nov 06, 2020 04:36
[2020-11-06] MEDS: VASOPRESSIN INJECTION 20 UNIT in NS (IVPB) 100 ML IV SCH ×3 (05:20→21:52)
[2020-11-06] MEDS: inSUlin ASPART (NovoLOG) 1 UNIT/0.01 ML (CHARGE PER UNIT) SC SCH ×4 (05:32→22:50)
[2020-11-06] MEDS: CEFEPIME 1,000 MG/SWFI 10 ML IV PUSH IV SCH ×4 (05:32→17:02)
[2020-11-06] MEDS: MIDAZOLAM DRIP PRE-MIX 100 ML IV SCH (05:35)
[2020-11-06 06:45] VITALS: BP 111/58
[2020-11-06] MEDS: RT-ALBUTEROL INHALER HFA (VENTOLIN HFA) 18 GM IH SCH ×5 (06:51→22:06)
[2020-11-06] MEDS: CATHETER FLUSH 10 ML SYR IV SCH ×3 (07:35→19:58)
--- NOTE | 2020-11-06 07:58 | Physical Therapy Progress Note ---
Therapy Progress Note Patient remains sedated and intubated. PT will continue to monitor patient status. JOSE MUNROE PT Nov 06, 2020 07:58
--- NOTE | 2020-11-06 08:07 | NUR ---
Daughter (Angel) requested a Zoom call this morning prior to pt proning. This Comb Machine Operator contacted Angel this morning and arranged to get her a small N95 and meet her at the ER entrance. The Zoom call is anticipated to take place with Angel in the room, Comb Machine Operator facilitating.
[2020-11-06] MEDS: PANTOPRAZOLE 40 MG (PROTONIX) VIAL IV SCH ×2 (08:24→19:56)
[2020-11-06] MEDS: APIXABAN 5 MG (ELIQUIS) TABLET PO SCH ×2 (08:24→19:57)
--- NOTE | 2020-11-06 08:35 | NUR ---
PTD VANCOMYCIN LABS: SCR 1.26 (2.29) TROUGH LEVEL 10.9 PLAN: INCREASE VANCOMYCIN TO 1,500MG IV DAILY @1300, WILL RECHECK A TROUGH LEVEL ON 11/08 @ 1200
[2020-11-06 10:08] VITALS: BP 111/58
--- NOTE | 2020-11-06 10:30 | NUR ---
Computer Forensics Technician facilitated FaceTimed pt's family via Zoom with daughter, Angel, present. This Computer Forensics Technician led in prayer and other family members joined with their own prayers petitioning God for mercy, comfort and healing.
[2020-11-06] MEDS: VANCOMYCIN 1500 MG/NS 500 ML IVPB IV SCH ×2 (13:11)
--- NOTE | 2020-11-06 14:50 | Cardiology Progress Note ---
Cardiology SOAP Progress Note Subjective: intubated/ventilated Objective: I&O/Vital Signs 11/08/20 11/08/20 11/08/20 11/08/20 13:00 13:00 14:00 14:44 Pulse 127 121 128 124 Resp 19 18 26 B/P (MAP) Pulse Ox 94 94 94 O2 Delivery Mechanical Ventilator Mechanical Ventilator O2 Flow Rate 36.00 36.00 FiO2 32 11/08/20 11/08/20 11/08/20 11/08/20 15:00 16:00 17:00 18:00 Temp 37.0 37.1 37.2 37.2 Pulse 75 115 115 115 Resp 19 27 23 25 B/P (MAP) Pulse Ox 95 94 91 90 O2 Delivery Mechanical Ventilator Mechanical Ventilator Mechanical Ventilator Mechanical Ventilator O2 Flow Rate 36.00 36.00 36.00 36.00 11/08/20 11/08/20 11/08/20 11/08/20 18:48 19:00 19:00 20:00 Pulse 98 129 127 104 Resp 32 32 24 B/P (MAP) Pulse Ox 87 92 98 O2 Delivery Mechanical Ventilator Mechanical Ventilator O2 Flow Rate 36.00 36.00 FiO2 32 11/08/20 11/08/20 11/08/20 11/08/20 20:01 21:00 21:08 22:00 Temp 37.4 Pulse 105 88 86 Resp 24 24 24 B/P (MAP) Pulse Ox 93 89 93 92 O2 Delivery Mechanical Ventilator Mechanical Ventilator Mechanical Ventilator Mechanical Ventilator O2 Flow Rate 36.00 36.00 36.00 FiO2 36 11/08/20 22:51 Pulse 89 Resp 31 Pulse Ox 90 FiO2 36 11/09/20 00:00 Intake Total 360 ml Output Total 800 ml Balance -440 ml Constitutional: other (on mech vent) Cardiovascular: irregularly irregular Neurologic/Psychiatric: other (intubated/ventilated) Results/Procedures: Labs Laboratory Tests 11/08/20 03:35: White Blood Count 7.9, Red Blood Count 3.59L, Hemoglobin 10.6L, Hematocrit 33L, Mean Corpuscular Volume 91, Mean Corpuscular Hemoglobin 30, Mean Corpuscular Hemoglobin Concent 33, Red Cell Distribution Width 13.6, Platelet Count 167, Mean Platelet Volume 11.2, Immature Granulocyte % (Auto) 1, Neutrophils (%) (Auto) 86H, Lymphocytes (%) (Auto) 8L, Monocytes (%) (Auto) 6, Eosinophils (%) (Auto) 0, Basophils (%) (Auto) 0, Neutrophils # (Auto) 6.8, Lymphocytes # (Auto) 0.6L, Monocytes # (Auto) 0.5, Eosinophils # (Auto) 0.0, Basophils # (Auto) 0.0, Immature Granulocyte # (Auto) 0.0, Blood Gas Puncture Site RIGHT RADIAL, Blood Gas Patient Temperature 36.1, Arterial Blood pH 7.44H, Arterial Blood Partial Pressure CO2 37, Arterial Blood Partial Pressure O2 82, Arterial Blood HCO3 25, Arterial Blood Total CO2 26.2, Arterial Blood Oxygen Saturation 97, Arterial Blood Base Excess 1.1, Andrzej Test YES-POS, Blood Gas Ventilator Setting YES, Blood Gas Inspired Oxygen 36%, Sodium Level 141, Potassium Level 4.6, Chloride Level 110H, Carbon Dioxide Level 23, Anion Gap 8, Blood Urea Nitrogen 60H, Creatinine 1.06, Estimat Glomerular Filtration Rate > 60, BUN/Creatinine Ratio 57, Glucose Level 152H, Calcium Level 7.3L, Phosphorus Level 2.4, Magnesium Level 3.1H 11/08/20 11:36: Glucometer 145H 11/08/20 13:15: Vancomycin Level Trough 18.7 11/08/20 17:35: Glucometer 175H Microbiology 11/07/20 Blood Culture - Preliminary, Resulted No growth 11/03/20 MRSA Screen - Final, Complete MRSA not isolated 11/03/20 Urine Culture - Final, Complete NO GROWTH A/P: Assessment/Dx: Ac resp failure due to bilateral COVID-19 pneumonia, managed by Hosp and ICU services Type II MT due to hypoxia due to ac resp failure Acute renal insufficiency: KOREY 2 and metabolic acid, managed by Hosp and ICU s [facility] Chronic atrial fib with a rapid vent response, currently controlled Chronically abnormal ECG: A Fib with atypical bundle branch block, old ASMI cannot be excluded, unchanged (except for minor differences in lead placement) compared to ECGs of Aug 2020 (done at [facility], [facility], [place]) LVEF reported to be normal on echo done at [facility] in 2019 H/o COPD Chronic apixaban Plan: Plan: * Prognosis remains guarded * Continue apixaban * iv dilt and/or beta-michael for vent rate control, if needed and if tolerated * Treatment of COVID-19 and associated complications is with the Hospitalist and ICU services * Monitor labs Thank you for your consultation. Please call me if you have any questions. Marco Lehman MD, FACP, FACC, FSCAI, FHRS, CCDS Interventional Cardiology Cardiac Electrophysiology Vascular Medicine and Endovascular Interventions Focused Exam Lactate Level Hong LEHMAN MD Nov 06, 2020 14:50
--- NOTE | 2020-11-06 15:06 | NUR ---
Note pt is currently NPO x3d. Note plan of care to reevaluate pt on 11/07 and determine TF plan, per Dr. Iqbal. If plan of care is to start tube feeds, would recommend Pulmocare via 60ml bolus feeds q4h with 30ml free water flushes before/after each bolus. Will continue to follow and reassess as pt needs, intake, and status change. Eyad Segura, MS RD LD [phone] cell
[2020-11-06 15:07] VITALS: BP 138/58
[2020-11-06] MEDS: dilTIAZem DRIP 125 MG/125 ML DRIP IV SCH (18:08)
[2020-11-06 19:00] VITALS: BP 111/58
[2020-11-06 22:06] VITALS: BP 115/54
[2020-11-07] MEDS: fentaNYL DRIP PRE-MIX 250 ML IV SCH ×3 (01:07→17:05)
[2020-11-07 01:21] VITALS: BP 123/53
[2020-11-07] MEDS: RT-ALBUTEROL INHALER HFA (VENTOLIN HFA) 18 GM IH SCH ×6 (01:21→22:47)
[2020-11-07] MEDS: NOREPINEPHRINE 4 MG/250 ML 250 ML IV SCH ×3 (01:27→19:00)
[2020-11-07] MEDS: meTOprolol 5 MG/5 ML (LOPRESSOR) VIAL IV SCH ×8 (02:12→22:57)
[2020-11-07 02:28] LABS: BASOPHILS % (AUTO) 0 % (0-10); EOSINOPHILS % (AUTO) 0 % (0-10); HEMATOCRIT 32 % (40-54); HEMOGLOBIN 10.6 g/dL (13.3-17.7); LYMPHOCYTES # (AUTO) 0.4 10^3/uL (1.0-4.0); LYMPHOCYTES % (AUTO) 6 % (12-44); MEAN CORPUSCULAR HEMOGLOBIN 30 pg (25-34); MEAN CORPUSCULAR HGB CONC 33 g/dL (32-36); MEAN CORPUSCULAR VOLUME 92 fL (80-99); MEAN PLATELET VOLUME 11.6 fL (9.0-12.2); MONOCYTES # (AUTO) 0.3 10^3/uL (0.0-1.0); MONOCYTES % (AUTO) 4 % (0-12); NEUTROPHILS # (AUTO) 6.9 10^3/uL (1.8-7.8); NEUTROPHILS % (AUTO) 89 % (42-75); PLATELET COUNT 158 10^3/uL (130-400); WHITE BLOOD COUNT 7.8 10^3/uL (4.3-11.0)
[2020-11-07 02:29] LABS: ABG BASE EXCESS -0.8 MMOL/L (-2.5-2.5); ABG OXYGEN SATURATION 98 % (94-100); ABG PCO2 41 MMHG (35-45); ABG PH 7.38 (7.37-7.43); ABG PO2 101 MMHG (79-93)
[2020-11-07 02:30] LABS: ALLENS TEST ART LINE; INSPIRED O2 36%; PATIENT TEMP 36.8; VENTILATOR YES
[2020-11-07 02:42] LABS: CHLORIDE 107 MMOL/L (98-107); POTASSIUM 4.8 MMOL/L (3.6-5.0); SODIUM 138 MMOL/L (135-145)
[2020-11-07 02:44] LABS: CALCIUM 7.5 MG/DL (8.5-10.1); GLUCOSE 138 MG/DL (70-105); TRIGLYCERIDES 127 MG/DL (<150)
[2020-11-07 02:46] LABS: CARBON DIOXIDE 20 MMOL/L (21-32)
[2020-11-07] MEDS: inSUlin ASPART (NovoLOG) 1 UNIT/0.01 ML (CHARGE PER UNIT) SC SCH ×4 (02:46→23:03)
[2020-11-07 02:48] LABS: CREATININE SERUM 0.99 MG/DL (0.60-1.30); GFR ESTIMATED > 60; PHOSPHORUS 2.6 MG/DL (2.3-4.7)
[2020-11-07 02:49] LABS: BUN/CREATININE RATIO 47
[2020-11-07 02:50] LABS: MAGNESIUM 2.8 MG/DL (1.6-2.4)
[2020-11-07] MEDS: CATHETER FLUSH 10 ML SYR IV SCH ×3 (04:49→19:49)
[2020-11-07] MEDS: CEFEPIME 1,000 MG/SWFI 10 ML IV PUSH IV SCH ×4 (04:50→17:13)
[2020-11-07] MEDS: VASOPRESSIN INJECTION 20 UNIT in NS (IVPB) 100 ML IV SCH ×3 (04:57→22:58)
[2020-11-07] MEDS: MIDAZOLAM DRIP PRE-MIX 100 ML IV SCH ×2 (07:00→22:58)
[2020-11-07 07:21] VITALS: BP 100/45
[2020-11-07] MEDS: CISATRACURIUM INJECTION 100 MG in NS (IVPB) 200 ML IV SCH ×3 (08:24→19:01)
[2020-11-07] MEDS: PANTOPRAZOLE 40 MG (PROTONIX) VIAL IV SCH ×2 (08:25→19:46)
[2020-11-07] MEDS: APIXABAN 5 MG (ELIQUIS) TABLET PO SCH ×2 (08:25→19:47)
--- NOTE | 2020-11-07 09:49 | Diagnostic Imaging Report ---
INDICATION: Covid positive, atrial fibrillation with rapid ventricular response. TECHNIQUE: Single view chest 4:33 AM. CORRELATION STUDY: 11/06/2020 FINDINGS: Endotracheal tube tip remains below the clavicles above the bindu. Gastric tube tip in the left upper quadrant. Right upper extremity central line tip at the cavoatrial junction. Heart size and mediastinum are stable. Scattered bilateral pulmonary opacities particularly in the mid and lower lung barrera does persist but overall appearing slightly improved. Probable small effusions. IMPRESSION: 1. Stable support lines and tubes. 2. Bilateral pulmonary opacities do persist but overall appearing perhaps slightly improved. Dictated by: Dictated on workstation # [id number]
[2020-11-07] MEDS ORDERED: FUROSEMIDE 40 MG/4 ML INJ (LASIX) IVP NR (10:15)
[2020-11-07 11:15] VITALS: BP 92/42
--- NOTE | 2020-11-07 11:17 | Physical Therapy Progress Note ---
Therapy Progress Note Pt. ventilated and sedated, we will continue to monitor for PT evaluation. RITIKA OJEDA PT Nov 07, 2020 11:17
[2020-11-07] MEDS: VANCOMYCIN 1500 MG/NS 500 ML IVPB IV SCH ×2 (11:38)
--- NOTE | 2020-11-07 13:19 | Progress Note - Hospitalist ---
Subjective HPI/CC On Admission Date Seen by Provider: Nov 07, 2020 Time Seen by Provider: 09:15 Subjective/Events-last exam He remains intubated and sedated. His daughter was at the bedside and all questions were answered to the best of my ability. Focused Exam Lactate Level 11/05/20 05:18: Lactic Acid Level 1.99 Objective Exam Vital Signs Vital Signs Date Time Temp Pulse Resp B/P (MAP) Pulse Ox O2 Delivery O2 Flow Rate FiO2 11/07/20 12:00 36.4 70 15 96 Mechanical Ventilator 36.00 11/07/20 11:15 36 Capillary Refill : Less Than 3 Seconds General Appearance: No Apparent Distress, WD/WN Respiratory: No Respiratory Distress, Decreased Breath Sounds, Other (m echanically ventilated) Cardiovascular: Regular Rate, Rhythm, No Murmur Gastrointestinal: Normal Bowel Sounds, Soft Extremity: Normal Inspection, Swelling Neurologic/Psychiatric: Other (sedated) Skin: Normal Color, Warm/Dry Results/Procedures Lab Laboratory Tests 11/07/20 02:15 Patient resulted labs reviewed. Imaging: Reviewed Imaging Report Assessment/Plan Assessment and Plan Assess & Plan/Chief Complaint ARDS due to COVID-19 PNA Possible Staph capitis bacteremia Decadron Remdesivir not indicated s/p convalescent plasma x1 s/p Nimbex TeleICU assisting with ventilator settings FiO2 decreased, remains on high PEEP Blood cultures 4/4 positive for Staph capitis Continue Vancomycin and Cefepime Repeat blood cultures Add Lasix Atrial fibrillation NSTEMI Cardiology consulted, appreciate assistance Cardizem, Metoprolol, Eliquis Critical Care Critically Ill Patient Diagnosis/Problems Diagnosis/Problems (1) Acute respiratory distress syndrome (ARDS) due to COVID-19 virus Status: Acute (2) PNA (pneumonia) Status: Acute (3) Bacteremia due to coagulase-negative Staphylococcus Status: Acute (4) Atrial fibrillation with rapid ventricular response Status: Acute Clinical Quality Measures DVT/VTE Risk/Contraindication: Risk Factor Score Per Nursin RFS Level Per Nursing on Admit: 2=Moderate VELMA EMERSON MD Nov 07, 2020 13:19
[2020-11-07 15:06] VITALS: BP 125/55
[2020-11-07 18:47] VITALS: BP 125/55
[2020-11-07] MEDS: dilTIAZem DRIP 125 MG/125 ML DRIP IV SCH (19:01)
[2020-11-07 22:47] VITALS: BP 132/54
--- NOTE | 2020-11-07 23:16 | Cardiology Progress Note ---
Cardiology SOAP Progress Note Subjective: intubated/ventilated Objective: I&O/Vital Signs 11/08/20 11/08/20 11/08/20 11/08/20 13:00 13:00 14:00 14:44 Pulse 127 121 128 124 Resp 19 18 26 B/P (MAP) Pulse Ox 94 94 94 O2 Delivery Mechanical Ventilator Mechanical Ventilator O2 Flow Rate 36.00 36.00 FiO2 32 11/08/20 11/08/20 11/08/20 11/08/20 15:00 16:00 17:00 18:00 Temp 37.0 37.1 37.2 37.2 Pulse 75 115 115 115 Resp 19 27 23 25 B/P (MAP) Pulse Ox 95 94 91 90 O2 Delivery Mechanical Ventilator Mechanical Ventilator Mechanical Ventilator Mechanical Ventilator O2 Flow Rate 36.00 36.00 36.00 36.00 11/08/20 11/08/20 11/08/20 11/08/20 18:48 19:00 19:00 20:00 Pulse 98 129 127 104 Resp 32 32 24 B/P (MAP) Pulse Ox 87 92 98 O2 Delivery Mechanical Ventilator Mechanical Ventilator O2 Flow Rate 36.00 36.00 FiO2 32 11/08/20 11/08/20 11/08/20 11/08/20 20:01 21:00 21:08 22:00 Temp 37.4 Pulse 105 88 86 Resp 24 24 24 B/P (MAP) Pulse Ox 93 89 93 92 O2 Delivery Mechanical Ventilator Mechanical Ventilator Mechanical Ventilator Mechanical Ventilator O2 Flow Rate 36.00 36.00 36.00 FiO2 36 11/08/20 22:51 Pulse 89 Resp 31 Pulse Ox 90 FiO2 36 11/09/20 00:00 Intake Total 360 ml Output Total 800 ml Balance -440 ml Constitutional: other (on mech vent) Cardiovascular: irregularly irregular Results/Procedures: Labs Laboratory Tests 11/08/20 03:35: White Blood Count 7.9, Red Blood Count 3.59L, Hemoglobin 10.6L, Hematocrit 33L, Mean Corpuscular Volume 91, Mean Corpuscular Hemoglobin 30, Mean Corpuscular Hemoglobin Concent 33, Red Cell Distribution Width 13.6, Platelet Count 167, Mean Platelet Volume 11.2, Immature Granulocyte % (Auto) 1, Neutrophils (%) (Auto) 86H, Lymphocytes (%) (Auto) 8L, Monocytes (%) (Auto) 6, Eosinophils (%) (Auto) 0, Basophils (%) (Auto) 0, Neutrophils # (Auto) 6.8, Lymphocytes # (Auto) 0.6L, Monocytes # (Auto) 0.5, Eosinophils # (Auto) 0.0, Basophils # (Auto) 0.0, Immature Granulocyte # (Auto) 0.0, Blood Gas Puncture Site RIGHT RADIAL, Blood Gas Patient Temperature 36.1, Arterial Blood pH 7.44H, Arterial Blood Partial Pressure CO2 37, Arterial Blood Partial Pressure O2 82, Arterial Blood HCO3 25, Arterial Blood Total CO2 26.2, Arterial Blood Oxygen Saturation 97, Arterial Blood Base Excess 1.1, Andrzej Test YES-POS, Blood Gas Ventilator Setting YES, Blood Gas Inspired Oxygen 36%, Sodium Level 141, Potassium Level 4.6, Chloride Level 110H, Carbon Dioxide Level 23, Anion Gap 8, Blood Urea Nitrogen 60H, Creatinine 1.06, Estimat Glomerular Filtration Rate > 60, BUN/Creatinine Ratio 57, Glucose Level 152H, Calcium Level 7.3L, Phosphorus Level 2.4, Magnesium Level 3.1H 11/08/20 11:36: Glucometer 145H 11/08/20 13:15: Vancomycin Level Trough 18.7 11/08/20 17:35: Glucometer 175H Microbiology 11/07/20 Blood Culture - Preliminary, Resulted No growth 11/03/20 MRSA Screen - Final, Complete MRSA not isolated 11/03/20 Urine Culture - Final, Complete NO GROWTH A/P: Assessment/Dx: Ac resp failure due to bilateral COVID-19 pneumonia, managed by Hosp and ICU services Type II DC due to hypoxia due to ac resp failure Acute renal insufficiency: KOREY 2 and metabolic acid, managed by Hosp and ICU services Chronic atrial fib with a rapid vent response, currently controlled Chronically abnormal ECG: A Fib with atypical bundle branch block, old ASMI cannot be excluded, unchanged (except for minor differences in lead placement) compared to ECGs of Aug 2020 (done at [facility], [place], [place]) LVEF reported to be normal on echo done at [facility] in 2019 H/o COPD Chronic apixaban anticoag Plan: Plan: * Prognosis remains guarded * Continue apixaban * iv dilt and/or beta-michael for vent rate control, if needed and if tolerated * Treatment of COVID-19 and associated complications is with the Hospitalist and ICU services * Monitor labs Thank you for your consultation. Please call me if you have any questions. Marco Lehman MD, FACP, FACC, FSCAI, FHRS, CCDS Interventional Cardiology Cardiac Electrophysiology Vascular Medicine and Endovascular Interventions Focused Exam Lactate Level Hong LEHMAN MD Nov 07, 2020 23:16
[2020-11-08] MEDS: fentaNYL DRIP PRE-MIX 250 ML IV SCH (01:11)
[2020-11-08] MEDS: meTOprolol 5 MG/5 ML (LOPRESSOR) VIAL IV SCH ×9 (01:12→22:38)
[2020-11-08 01:24] VITALS: BP 111/58
[2020-11-08] MEDS: RT-ALBUTEROL INHALER HFA (VENTOLIN HFA) 18 GM IH SCH ×6 (01:24→22:51)
[2020-11-08 03:44] LABS: ABG BASE EXCESS 1.1 MMOL/L (-2.5-2.5); ABG OXYGEN SATURATION 97 % (94-100); ABG PCO2 37 MMHG (35-45); ABG PH 7.44 (7.37-7.43); ABG PO2 82 MMHG (79-93); ABG TCO2 26.2 MMOL/L (21.0-31.0)
[2020-11-08 03:46] LABS: ALLENS TEST YES-POS; INSPIRED O2 36%; PATIENT TEMP 36.1; VENTILATOR YES
[2020-11-08 03:48] LABS: BASOPHILS % (AUTO) 0 % (0-10); EOSINOPHILS % (AUTO) 0 % (0-10); HEMATOCRIT 33 % (40-54); HEMOGLOBIN 10.6 g/dL (13.3-17.7); LYMPHOCYTES # (AUTO) 0.6 10^3/uL (1.0-4.0); LYMPHOCYTES % (AUTO) 8 % (12-44); MEAN CORPUSCULAR HEMOGLOBIN 30 pg (25-34); MEAN CORPUSCULAR HGB CONC 33 g/dL (32-36); MEAN CORPUSCULAR VOLUME 91 fL (80-99); MEAN PLATELET VOLUME 11.2 fL (9.0-12.2); MONOCYTES # (AUTO) 0.5 10^3/uL (0.0-1.0); MONOCYTES % (AUTO) 6 % (0-12); NEUTROPHILS # (AUTO) 6.8 10^3/uL (1.8-7.8); NEUTROPHILS % (AUTO) 86 % (42-75); PLATELET COUNT 167 10^3/uL (130-400); WHITE BLOOD COUNT 7.9 10^3/uL (4.3-11.0)
[2020-11-08 03:56] LABS: CHLORIDE 110 MMOL/L (98-107); POTASSIUM 4.6 MMOL/L (3.6-5.0); SODIUM 141 MMOL/L (135-145)
[2020-11-08 03:57] LABS: CALCIUM 7.3 MG/DL (8.5-10.1)
[2020-11-08 03:58] LABS: GLUCOSE 152 MG/DL (70-105)
[2020-11-08 03:59] LABS: CARBON DIOXIDE 23 MMOL/L (21-32)
[2020-11-08 04:01] LABS: PHOSPHORUS 2.4 MG/DL (2.3-4.7)
[2020-11-08 04:02] LABS: CREATININE SERUM 1.06 MG/DL (0.60-1.30); GFR ESTIMATED > 60
[2020-11-08 04:03] LABS: BUN/CREATININE RATIO 57
[2020-11-08 04:04] LABS: MAGNESIUM 3.1 MG/DL (1.6-2.4)
[2020-11-08] MEDS: NOREPINEPHRINE 4 MG/250 ML 250 ML IV SCH ×3 (04:12→21:11)
[2020-11-08] MEDS: CISATRACURIUM INJECTION 100 MG in NS (IVPB) 200 ML IV SCH ×3 (04:12→19:36)
[2020-11-08] MEDS: inSUlin ASPART (NovoLOG) 1 UNIT/0.01 ML (CHARGE PER UNIT) SC SCH ×3 (05:00→18:23)
[2020-11-08] MEDS: CATHETER FLUSH 10 ML SYR IV SCH ×3 (05:05→21:11)
[2020-11-08] MEDS: CEFEPIME 1,000 MG/SWFI 10 ML IV PUSH IV SCH ×2 (05:05)
[2020-11-08] MEDS: LACTATED RINGERS 1,000 ML IV SCH (05:32)
[2020-11-08 07:09] VITALS: BP 123/58
--- NOTE | 2020-11-08 07:26 | Diagnostic Imaging Report ---
EXAM: Portable semi-erect AP chest at 3:27 AM INDICATION: Respiratory distress FINDINGS: The heart is unchanged in size when compared to the prior exam of 11/07/2020. The alveolar/interstitial pulmonary infiltrates involving both lungs seen previously are again evident and not significantly changed. The mediastinum is not widened. The osseous structures are intact. The supportive tubes and lines remaining in good position. IMPRESSION: Stable chest. There has been no adverse change since the prior exam. Dictated by: Dictated on workstation # [id number]
[2020-11-08] MEDS: PANTOPRAZOLE 40 MG (PROTONIX) VIAL IV SCH ×2 (08:40→20:06)
[2020-11-08] MEDS: APIXABAN 5 MG (ELIQUIS) TABLET PO SCH ×2 (08:40→20:06)
[2020-11-08 11:07] VITALS: BP 124/53
[2020-11-08] MEDS ORDERED: TROUGH ORDER-PHARMACY XX ONE (12:00)
[2020-11-08] MEDS: VASOPRESSIN INJECTION 20 UNIT in NS (IVPB) 100 ML IV SCH ×3 (13:14→23:52)
[2020-11-08 14:44] VITALS: BP 120/54
--- NOTE | 2020-11-08 15:02 | Cardiology Progress Note ---
Cardiology SOAP Progress Note Subjective: on mechanical ventilation Objective: I&O/Vital Signs 11/08/20 11/08/20 11/08/20 11/08/20 13:00 13:00 14:00 14:44 Pulse 127 121 128 124 Resp 19 18 26 B/P (MAP) Pulse Ox 94 94 94 O2 Delivery Mechanical Ventilator Mechanical Ventilator O2 Flow Rate 36.00 36.00 FiO2 32 11/08/20 11/08/20 11/08/20 11/08/20 15:00 16:00 17:00 18:00 Temp 37.0 37.1 37.2 37.2 Pulse 75 115 115 115 Resp 19 27 23 25 B/P (MAP) Pulse Ox 95 94 91 90 O2 Delivery Mechanical Ventilator Mechanical Ventilator Mechanical Ventilator Mechanical Ventilator O2 Flow Rate 36.00 36.00 36.00 36.00 11/08/20 11/08/20 11/08/20 11/08/20 18:48 19:00 19:00 20:00 Pulse 98 129 127 104 Resp 32 32 24 B/P (MAP) Pulse Ox 87 92 98 O2 Delivery Mechanical Ventilator Mechanical Ventilator O2 Flow Rate 36.00 36.00 FiO2 32 11/08/20 11/08/20 11/08/20 11/08/20 20:01 21:00 21:08 22:00 Temp 37.4 Pulse 105 88 86 Resp 24 24 24 B/P (MAP) Pulse Ox 93 89 93 92 O2 Delivery Mechanical Ventilator Mechanical Ventilator Mechanical Ventilator Mechanical Ventilator O2 Flow Rate 36.00 36.00 36.00 FiO2 36 11/08/20 22:51 Pulse 89 Resp 31 Pulse Ox 90 FiO2 36 11/09/20 00:00 Intake Total 360 ml Output Total 800 ml Balance -440 ml Constitutional: other (on mech vent) Cardiovascular: irregularly irregular Results/Procedures: Labs Laboratory Tests 11/08/20 03:35: White Blood Count 7.9, Red Blood Count 3.59L, Hemoglobin 10.6L, Hematocrit 33L, Mean Corpuscular Volume 91, Mean Corpuscular Hemoglobin 30, Mean Corpuscular Hemoglobin Concent 33, Red Cell Distribution Width 13.6, Platelet Count 167, Mean Platelet Volume 11.2, Immature Granulocyte % (Auto) 1, Neutrophils (%) (Auto) 86H, Lymphocytes (%) (Auto) 8L, Monocytes (%) (Auto) 6, Eosinophils (%) (Auto) 0, Basophils (%) (Auto) 0, Neutrophils # (Auto) 6.8, Lymphocytes # (Auto) 0.6L, Monocytes # (Auto) 0.5, Eosinophils # (Auto) 0.0, Basophils # (Auto) 0.0, Immature Granulocyte # (Auto) 0.0, Blood Gas Puncture Site RIGHT RADIAL, Blood Gas Patient Temperature 36.1, Arterial Blood pH 7.44H, Arterial Blood Partial Pressure CO2 37, Arterial Blood Partial Pressure O2 82, Arterial Blood HCO3 25, Arterial Blood Total CO2 26.2, Arterial Blood Oxygen Saturation 97, Arterial Blood Base Excess 1.1, Andrzej Test YES-POS, Blood Gas Ventilator Setting YES, Blood Gas Inspired Oxygen 36%, Sodium Level 141, Potassium Level 4.6, Chloride Level 110H, Carbon Dioxide Level 23, Anion Gap 8, Blood Urea Nitrogen 60H, Creatinine 1.06, Estimat Glomerular Filtration Rate > 60, BUN/Creatinine Ratio 57, Glucose Level 152H, Calcium Level 7.3L, Phosphorus Level 2.4, Magnesium Level 3.1H 11/08/20 11:36: Glucometer 145H 11/08/20 13:15: Vancomycin Level Trough 18.7 11/08/20 17:35: Glucometer 175H Microbiology 11/07/20 Blood Culture - Preliminary, Resulted No growth 11/03/20 MRSA Screen - Final, Complete MRSA not isolated 11/03/20 Urine Culture - Final, Complete NO GROWTH A/P: Assessment/Dx: Ac resp failure due to bilateral COVID-19 pneumonia, managed by Hosp and ICU services Type II OR due to hypoxia due to ac resp failure Acute renal insufficiency: KOREY 2 and metabolic acid, managed by Hosp and ICU services Chronic atrial fib with a rapid vent response, currently controlled Chronically abnormal ECG: A Fib with atypical bundle branch block, old ASMI cannot be excluded, unchanged (except for minor differences in lead placement) compared to ECGs of Aug 2020 (done at [facility], [place], [place]) LVEF reported to be normal on echo done at [facility] in 2019 H/o COPD Chronic apixaban anticoag Plan: Plan: * Prognosis remains guarded * Continue apixaban * iv dilt and/or beta-michael for vent rate control, if needed and if tolerated * Treatment of COVID-19 and associated complications is with the Hospitalist and ICU services * Monitor labs Thank you for your consultation. Please call me if you have any questions. Marco Lehman MD, FACP, FACC, FSCAI, FHRS, CCDS Interventional Cardiology Cardiac Electrophysiology Vascular Medicine and Endovascular Interventions Hong LEHMAN MD Nov 08, 2020 15:02
--- NOTE | 2020-11-08 15:05 | Progress Note - Hospitalist ---
Subjective HPI/CC On Admission Date Seen by Provider: Nov 08, 2020 Time Seen by Provider: 10:45 Subjective/Events-last exam he remains intubated and sedated. Objective Exam Vital Signs Vital Signs Date Time Temp Pulse Resp B/P (MAP) Pulse Ox O2 Delivery O2 Flow Rate FiO2 11/08/20 14:44 124 26 94 32 11/08/20 14:00 Mechanical Ventilator 36.00 11/08/20 12:00 36.8 Capillary Refill : Less Than 3 Seconds General Appearance: No Apparent Distress, Obese, Other (intubated and sedated) Respiratory: Lungs Clear, Normal Breath Sounds, No Respiratory Distress, Other (chemically ventilated) Cardiovascular: No Murmur, Tachycardia Gastrointestinal: Normal Bowel Sounds, Soft Extremity: Normal Inspection, Pedal Edema, Swelling Neurologic/Psychiatric: Other (sedated) Skin: Normal Color, Warm/Dry Results/Procedures Lab Laboratory Tests 11/08/20 03:35 Patient resulted labs reviewed. Imaging: Reviewed Imaging Report Assessment/Plan Assessment and Plan Assess & Plan/Chief Complaint ARDS due to COVID-19 PNA Possible Staph capitis bacteremia Decadron Remdesivir not indicated s/p convalescent plasma x1 s/p Nimbex TeleICU assisting with ventilator settings FiO2 stable, PEEP improved, minimal vent requirements Blood cultures 4/4 positive for Staph capitis Continue Vancomycin and Cefepime Repeat blood cultures Atrial fibrillation NSTEMI Cardiology consulted, appreciate assistance Cardizem, Metoprolol, Eliquis Critical Care Critically Ill Patient Diagnosis/Problems Diagnosis/Problems (1) Acute respiratory distress syndrome (ARDS) due to COVID-19 virus Status: Acute (2) PNA (pneumonia) Status: Acute (3) Bacteremia due to coagulase-negative Staphylococcus Status: Acute (4) Atrial fibrillation with rapid ventricular response Status: Acute Clinical Quality Measures DVT/VTE Risk/Contraindication: Risk Factor Score Per Nursin RFS Level Per Nursing on Admit: 2=Moderate VELMA EMERSON MD Nov 08, 2020 15:05
[2020-11-08] MEDS: VANCOMYCIN 1500 MG/NS 500 ML IVPB IV SCH ×2 (16:09)
[2020-11-08 18:48] VITALS: BP 166/74
[2020-11-08] MEDS: dilTIAZem DRIP 125 MG/125 ML DRIP IV SCH (19:38)
[2020-11-08 22:51] VITALS: BP 127/60
[2020-11-09] MEDS: inSUlin ASPART (NovoLOG) 1 UNIT/0.01 ML (CHARGE PER UNIT) SC SCH ×5 (00:15→23:39)
[2020-11-09] MEDS: meTOprolol 5 MG/5 ML (LOPRESSOR) VIAL IV SCH ×2 (02:20→05:30)
[2020-11-09] MEDS: CISATRACURIUM INJECTION 100 MG in NS (IVPB) 200 ML IV SCH (02:20)
[2020-11-09] MEDS: RT-ALBUTEROL INHALER HFA (VENTOLIN HFA) 18 GM IH SCH ×6 (02:26→21:17)
[2020-11-09 02:27] VITALS: BP 111/58
[2020-11-09] MEDS: fentaNYL DRIP PRE-MIX 250 ML IV SCH ×2 (02:41→14:59)
[2020-11-09 02:48] LABS: ABG OXYGEN SATURATION 96 % (94-100); ABG PCO2 35 MMHG (35-45); ABG PH 7.46 (7.37-7.43); ABG PO2 76 MMHG (79-93); ABG TCO2 25.6 MMOL/L (21.0-31.0); BASOPHILS % (AUTO) 0 % (0-10); EOSINOPHILS % (AUTO) 0 % (0-10); HEMATOCRIT 33 % (40-54); HEMOGLOBIN 10.8 g/dL (13.3-17.7); LYMPHOCYTES # (AUTO) 0.7 10^3/uL (1.0-4.0); LYMPHOCYTES % (AUTO) 8 % (12-44); MEAN CORPUSCULAR HEMOGLOBIN 30 pg (25-34); MEAN CORPUSCULAR HGB CONC 33 g/dL (32-36); MEAN CORPUSCULAR VOLUME 91 fL (80-99); MEAN PLATELET VOLUME 11.5 fL (9.0-12.2); MONOCYTES # (AUTO) 0.6 10^3/uL (0.0-1.0); MONOCYTES % (AUTO) 7 % (0-12); NEUTROPHILS % (AUTO) 84 % (42-75); PLATELET COUNT 193 10^3/uL (130-400); WHITE BLOOD COUNT 8.4 10^3/uL (4.3-11.0)
[2020-11-09 02:54] LABS: ALLENS TEST ART LINE
[2020-11-09 02:55] LABS: INSPIRED O2 36%; PATIENT TEMP 36.6; VENTILATOR YES
[2020-11-09 02:57] LABS: CHLORIDE 111 MMOL/L (98-107); POTASSIUM 4.6 MMOL/L (3.6-5.0); SODIUM 142 MMOL/L (135-145)
[2020-11-09 02:58] LABS: ALBUMIN 2.4 GM/DL (3.2-4.5)
[2020-11-09 02:59] LABS: CALCIUM 7.4 MG/DL (8.5-10.1); TRIGLYCERIDES 156 MG/DL (<150)
[2020-11-09 03:00] LABS: GLUCOSE 167 MG/DL (70-105); TOTAL PROTEIN 5.1 GM/DL (6.4-8.2)
[2020-11-09 03:01] LABS: CARBON DIOXIDE 21 MMOL/L (21-32)
[2020-11-09 03:02] LABS: BILIRUBIN,TOTAL 0.5 MG/DL (0.1-1.0)
[2020-11-09 03:03] LABS: PHOSPHORUS 2.4 MG/DL (2.3-4.7)
[2020-11-09 03:04] LABS: ALKALINE PHOSPHATASE 113 U/L (40-136); CREATININE SERUM 1.01 MG/DL (0.60-1.30); GFR ESTIMATED > 60
[2020-11-09 03:05] LABS: BILIRUBIN,DIRECT 0.3 MG/DL (0.0-0.3); BILIRUBIN,INDIRECT 0.2 MG/DL; BUN/CREATININE RATIO 60
[2020-11-09 03:07] LABS: ALANINE AMINOTRANSFERASE 95 U/L (0-55); MAGNESIUM 3.2 MG/DL (1.6-2.4)
[2020-11-09] MEDS: NOREPINEPHRINE 4 MG/250 ML 250 ML IV SCH (04:16)
--- NOTE | 2020-11-09 05:00 | Pulmonary Progress Note ---
Subjective Time Seen by a Provider: 04:54 Subjective/Events-last exam Pt is sedated on vent. Sepsis Event Evaluation Height, Weight, BMI Height: '" Weight: lbs. oz. kg; 25.00 BMI Method: Exam Exam Vital Signs Date Time Temp Pulse Resp B/P (MAP) Pulse Ox O2 Delivery O2 Flow Rate FiO2 11/09/20 04:00 99 20 91 Mechanical Ventilator 36.00 11/09/20 03:28 132/58 11/09/20 03:00 93 20 93 Mechanical Ventilator 36.00 11/09/20 02:27 84 20 93 45 11/09/20 02:00 82 20 93 Mechanical Ventilator 36.00 11/09/20 01:02 78 11/09/20 01:00 90 20 92 Mechanical Ventilator 36.00 11/09/20 00:00 87 20 90 Mechanical Ventilator 36.00 11/08/20 23:00 96 24 90 Mechanical Ventilator 36.00 11/08/20 22:51 89 31 90 36 11/08/20 22:00 86 24 92 Mechanical Ventilator 36.00 11/08/20 21:08 93 Mechanical Ventilator 36 11/08/20 21:00 88 24 89 Mechanical Ventilator 36.00 11/08/20 20:01 37.4 105 24 93 Mechanical Ventilator 36.00 11/08/20 20:00 104 24 98 Mechanical Ventilator 36.00 11/08/20 19:00 127 11/08/20 19:00 129 32 92 Mechanical Ventilator 36.00 11/08/20 18:48 98 32 87 32 11/08/20 18:00 37.2 115 25 90 Mechanical Ventilator 36.00 11/08/20 17:00 37.2 115 23 91 Mechanical Ventilator 36.00 11/08/20 16:00 37.1 115 27 94 Mechanical Ventilator 36.00 11/08/20 15:00 37.0 75 19 95 Mechanical Ventilator 36.00 11/08/20 14:44 124 26 94 32 11/08/20 14:00 128 18 94 Mechanical Ventilator 36.00 11/08/20 13:00 121 19 94 Mechanical Ventilator 36.00 11/08/20 13:00 127 11/08/20 12:00 36.8 107 20 94 Mechanical Ventilator 36.00 11/08/20 11:07 110 22 95 32 11/08/20 11:00 84 25 97 Mechanical Ventilator 36.00 11/08/20 10:00 117 21 97 Mechanical Ventilator 36.00 11/08/20 09:00 94 Mechanical Ventilator 36 11/08/20 09:00 98 21 94 Mechanical Ventilator 36.00 11/08/20 08:45 92 20 95 11/08/20 08:30 106 20 95 11/08/20 08:15 99 20 94 11/08/20 08:00 104 20 95 Mechanical Ventilator 36.00 11/08/20 07:45 101 20 95 11/08/20 07:30 114 20 95 11/08/20 07:15 114 21 96 11/08/20 07:09 116 24 97 36 11/08/20 07:00 116 11/08/20 07:00 96 20 94 Mechanical Ventilator 36.00 11/08/20 06:45 80 19 95 11/08/20 06:30 102 19 95 11/08/20 06:15 101 20 95 11/08/20 06:00 36.9 88 18 94 Mechanical Ventilator 36.00 11/08/20 05:00 36.5 78 20 94 Mechanical Ventilator 36.00 l I & O 11/09/20 07:00 Intake Total 660 ml Output Total 1500 ml Balance -840 ml Height & Weight Height: '" Weight: lbs. oz. kg; 25.00 BMI Method: General Appearance: No Apparent Distress, Obese, Other (intubated and sedated) HEENT: PERRL/EOMI, Other (Dry mucous membranes) Neck: Full Range of Motion, Supple Respiratory: Lungs Clear, Normal Breath Sounds, No Respiratory Distress, Other (chemically ventilated) Cardiovascular: No Murmur, Tachycardia Capillary Refill: Less Than 3 Seconds Extremity: Normal Inspection, Pedal Edema, Swelling Neurologic/Psychiatric: Other (sedated) Skin: Normal Color, Warm/Dry Results Lab Laboratory Tests 11/08/20 03:35 11/09/20 02:30 Assessment/Plan Assessment/Plan Acute respiratory failure with COVID-19 PNA and ARDS -Continue ventilator -D/C sedation and attempt to wean vent. -Check CXR and continue daily CXR - 45% -- Intubated 11/03 --- PEEP5 -Propofol 10, and Fentanyl at 75 -Proning pt -Hold TF and reevaluate 11/07 -Decadron -CVP -- done -Will not start Remdesivir secondary to pt being on vent and elevated LFTs. PNA with severe septic shock -LR at 100 -Cefepime and vanco - arterial line -Sultana cultures pending Bacteremia with gram positive cocci -Continue Vancomycin and cefepime Metabolic acidosis -Check LA Hypotension -Levophed gtt ARF -IVF -Monitor Afib RVR -Cardizem is off -Eliquis Acute GIB - Hb is stable -Protonix BID -Pt is on Eliquis monitor closely NSTEMI -Cardiology is following PAULA SMALL DO Nov 09, 2020 04:59
[2020-11-09] MEDS: CATHETER FLUSH 10 ML SYR IV SCH ×3 (05:03→21:27)
[2020-11-09] MEDS ORDERED: DexMEDEtomidine PRE MIX 100 ML IV ONE (05:42)
[2020-11-09] MEDS ORDERED: morphine INJ 4 MG/ML 1 ML (VIAL/SYRINGE) ONE (05:43)
[2020-11-09] MEDS ORDERED: morphine INJ 10 MG/ML 1ML (SYR OR VIAL) IVP STA (06:46)
[2020-11-09 06:47] VITALS: BP 134/63
--- NOTE | 2020-11-09 07:15 | Diagnostic Imaging Report ---
Indication: Intubated. Comparison: 11/08/2020 Findings: Single view of the chest demonstrates the ET tube and NG tube in satisfactory position. There is increasing consolidation in the right upper lobe. Otherwise, infiltrates are stable. There are trace effusions. There is no pneumothorax. The heart remains prominent. Impression: 1. Stable appearing support devices. 2. Increasing consolidation right upper lobe. Dictated by: Dictated on workstation # [id number]
[2020-11-09] MEDS: APIXABAN 5 MG (ELIQUIS) TABLET PO SCH ×2 (08:06→21:27)
[2020-11-09] MEDS: PANTOPRAZOLE 40 MG (PROTONIX) VIAL IV SCH ×2 (08:06→21:27)
--- NOTE | 2020-11-09 08:06 | Physical Therapy Progress Note ---
Therapy Progress Note Patient remains sedated and intubated. PT will continue to monitor patient status. CLIFF MCKEE PT Nov 09, 2020 08:05
[2020-11-09] MEDS: meTOprolol TARTRATE 25 MG (LOPRESSOR) TABLET PO SCH ×2 (08:07→21:27)
[2020-11-09] MEDS: DexMEDEtomidine PRE MIX 100 ML IV SCH ×2 (08:30→15:24)
[2020-11-09 10:04] VITALS: BP 111/58
[2020-11-09] MEDS: CEFEPIME 1,000 MG/SWFI 10 ML IV PUSH IV SCH ×4 (10:53→17:11)
--- NOTE | 2020-11-09 10:57 | Cardiology Progress Note ---
Subjective Date Seen by Provider: Nov 09, 2020 Time Seen by Provider: 10:53 Subjective/Events-last exam Patient is sedated and intubated, unable to provide history or review of systems Review of Systems General: Other (sedated and intubated) Objective-Cardiology Exam Last Set of Vital Signs Vital Signs 11/09/20 11/09/20 11/09/20 03:28 09:00 10:04 Temp 37.3 Pulse 76 Resp 20 B/P (MAP) 132/58 Pulse Ox 95 O2 Delivery Mechanical Ventilator O2 Flow Rate 36.00 FiO2 50 Capillary Refill : Less Than 3 Seconds I&O Intake and Output 11/09/20 00:00 Intake Total 1910 ml Output Total 1560 ml Balance 350 ml Intake Oral 0 ml IV Total 1250 ml Tube Feeding 300 ml Other 360 ml Output Urine Total 1560 ml General: Other (sedated and intubated) HEENT: Atraumatic Lungs: Other (Sid rhonchi) Heart: Other (controlled rate) Neuro: Other (sedated and intubated) Psych/Mental Status: Other (sedated and intubated) Results Lab Laboratory Tests 11/09/20 02:30 A/P-Cardiology Admission Diagnosis COVID-19 pneumonia Acute respiratory failure Chronic atrial fibrillation 952 myocardial infarction Assessment/Plan Acute respiratory failure, ventilator dependent, COVID-19 pneumonia, managed by primary care team Coronary artery disease, type II myocardial infarction with mild elevation of troponin secondary to respiratory failure and hypoxia. Continue to monitor Acute renal insufficiency, renal functions are back to normal. Continue to monitor Chronic atrial fibrillation, rate is controlled at this time. Continue to monitor Chronically abnormal ECG: A Fib with atypical bundle branch block, old ASMI cannot be excluded, unchanged (except for minor differences in lead placement) compared to ECGs of Aug 2020 (done at [facility], [facility], [place]) LVEF reported to be normal on echo done at [facility] in 2019 H/o COPD Chronic apixaban anticoag Clinical Quality Measures DVT/VTE Risk/Contraindication: Risk Factor Score Per Nursin RFS Level Per Nursing on Admit: 2=Moderate TORY VALLE MD Nov 09, 2020 10:56
[2020-11-09] MEDS: LACTATED RINGERS 1,000 ML IV SCH ×2 (11:33→17:11)
[2020-11-09] MEDS ORDERED: fentaNYL DRIP PRE-MIX 250 ML IV ONE (13:09)
[2020-11-09] MEDS: VANCOMYCIN 1500 MG/NS 500 ML IVPB IV SCH ×2 (13:26)
[2020-11-09] MEDS: ARTIFICIAL TEARS OINT (LACRI-LUBE) 3.5 GM TUBE OU SCH ×2 (13:26→21:27)
[2020-11-09 14:28] VITALS: BP 134/60
--- NOTE | 2020-11-09 14:29 | NUR ---
SPOKE WITH MEGAN YUSUF, AT THIS TIME, GAVE UPDATE ON PATIENT CURRENT STATUS ET PLAN OF CARE FOR DAY.
--- NOTE | 2020-11-09 16:59 | NUR ---
Note plan of care for weaning trial to extubate, per Kalie VASQUEZ. Would recommend Pulmocare via 60ml bolus feeds q4h, with 30ml free water flushes before/after each bolus. Will continue to follow and reassess as pt needs, intake, and status change. Eyad Segura, MS RD LD [phone] cell
[2020-11-09 18:46] VITALS: BP 141/66
--- NOTE | 2020-11-09 21:00 | NUR ---
Noted patient coughing a lot. BP elevated 180's/100's. Heart rate up to 160's. Breathing 42 times per minute (roughly twice Vent setting). In room to assess patient. Patient able to lightly grasp hands when asked to squeeze. Audible noises heard out of mouth. Patient suctioned. Noted red tinged liquid in ET tube. Respiratory called and in room. Sedation increased to help calm patient.
[2020-11-09] MEDS: dilTIAZem DRIP 125 MG/125 ML DRIP IV SCH (21:02)
[2020-11-09 21:17] VITALS: BP 127/69
--- NOTE | 2020-11-09 22:32 | NUR ---
Patient calm. HR 84 with frequent PVCs. BP 130's/60-70's. Respirations 24.
[2020-11-10] MEDS: DexMEDEtomidine PRE MIX 100 ML IV SCH ×4 (01:18→22:53)
[2020-11-10] MEDS: CEFEPIME 1,000 MG/SWFI 10 ML IV PUSH IV SCH ×6 (01:18→17:41)
[2020-11-10 02:23] VITALS: BP 134/61
[2020-11-10] MEDS: RT-ALBUTEROL INHALER HFA (VENTOLIN HFA) 18 GM IH SCH ×6 (02:23→21:58)
[2020-11-10 02:37] LABS: BASOPHILS % (AUTO) 0 % (0-10); EOSINOPHILS % (AUTO) 0 % (0-10); HEMATOCRIT 37 % (40-54); LYMPHOCYTES # (AUTO) 0.7 10^3/uL (1.0-4.0); LYMPHOCYTES % (AUTO) 7 % (12-44); MEAN CORPUSCULAR HEMOGLOBIN 29 pg (25-34); MEAN CORPUSCULAR HGB CONC 32 g/dL (32-36); MEAN CORPUSCULAR VOLUME 91 fL (80-99); MEAN PLATELET VOLUME 11.3 fL (9.0-12.2); MONOCYTES # (AUTO) 0.5 10^3/uL (0.0-1.0); MONOCYTES % (AUTO) 5 % (0-12); NEUTROPHILS # (AUTO) 8.6 10^3/uL (1.8-7.8); NEUTROPHILS % (AUTO) 87 % (42-75); PLATELET COUNT 206 10^3/uL (130-400); WHITE BLOOD COUNT 9.9 10^3/uL (4.3-11.0)
[2020-11-10 02:38] LABS: ABG BASE EXCESS -0.6 MMOL/L (-2.5-2.5); ABG OXYGEN SATURATION 99 % (94-100); ABG PCO2 36 MMHG (35-45); ABG PH 7.43 (7.37-7.43); ABG PO2 202 MMHG (79-93); ABG TCO2 24.2 MMOL/L (21.0-31.0)
[2020-11-10 02:40] LABS: ALLENS TEST ART LINE; INSPIRED O2 100%; PATIENT TEMP 37.1; VENTILATOR YES
[2020-11-10 02:54] LABS: CHLORIDE 111 MMOL/L (98-107); POTASSIUM 4.7 MMOL/L (3.6-5.0); SODIUM 141 MMOL/L (135-145)
[2020-11-10 02:56] LABS: CALCIUM 7.4 MG/DL (8.5-10.1); GLUCOSE 182 MG/DL (70-105)
[2020-11-10 02:58] LABS: CARBON DIOXIDE 21 MMOL/L (21-32)
[2020-11-10 03:00] LABS: CREATININE SERUM 0.88 MG/DL (0.60-1.30); GFR ESTIMATED > 60; PHOSPHORUS 3.1 MG/DL (2.3-4.7)
[2020-11-10 03:01] LABS: BUN/CREATININE RATIO 65
[2020-11-10] MEDS: fentaNYL DRIP PRE-MIX 250 ML IV SCH ×2 (03:47→06:56)
--- NOTE | 2020-11-10 06:05 | Pulmonary Progress Note ---
Subjective Time Seen by a Provider: 06:04 Subjective/Events-last exam Pt is sedated on vent. Sepsis Event Evaluation Height, Weight, BMI Height: '" Weight: lbs. oz. kg; 25.00 BMI Method: Exam Exam Vital Signs Date Time Temp Pulse Resp B/P (MAP) Pulse Ox O2 Delivery O2 Flow Rate FiO2 11/10/20 02:23 80 23 99 90 11/10/20 02:00 37.0 23 99 Mechanical Ventilator 35.00 11/10/20 01:18 36.8 80 24 122/59 99 100.00 11/10/20 01:00 36.8 24 98 Mechanical Ventilator 35.00 11/10/20 00:59 85 11/10/20 00:00 36.8 22 97 Mechanical Ventilator 35.00 11/09/20 23:00 36.8 22 98 Mechanical Ventilator 35.00 11/09/20 22:00 36.3 131 29 98 Mechanical Ventilator 35.00 11/09/20 21:17 151 32 90 75 11/09/20 21:00 93 Mechanical Ventilator 36 11/09/20 21:00 36.8 140 31 97 Mechanical Ventilator 35.00 11/09/20 20:00 37.0 125 28 99 Mechanical Ventilator 35.00 11/09/20 19:25 37.0 Mechanical Ventilator 35.00 11/09/20 19:00 113 11/09/20 19:00 37.0 115 32 95 Mechanical Ventilator 36.00 11/09/20 18:46 87 27 92 50 11/09/20 18:00 37.1 85 21 92 Mechanical Ventilator 36.00 11/09/20 17:00 37.3 82 25 92 Mechanical Ventilator 36.00 11/09/20 16:00 37.4 85 28 95 Mechanical Ventilator 36.00 11/09/20 15:24 80 11/09/20 15:00 37.5 82 24 91 Mechanical Ventilator 36.00 11/09/20 14:28 77 23 88 50 11/09/20 14:00 37.7 95 22 89 Mechanical Ventilator 36.00 11/09/20 13:00 37.5 84 33 96 Mechanical Ventilator 36.00 11/09/20 12:56 89 11/09/20 12:00 37.5 96 45 96 Mechanical Ventilator 36.00 11/09/20 11:00 37.4 77 23 95 Mechanical Ventilator 36.00 11/09/20 10:04 76 20 95 50 11/09/20 10:00 37.3 81 21 95 Mechanical Ventilator 36.00 11/09/20 09:00 93 Mechanical Ventilator 36 11/09/20 09:00 37.3 75 26 95 Mechanical Ventilator 36.00 11/09/20 08:30 75 11/09/20 08:00 37.4 70 21 91 Mechanical Ventilator 36.00 11/09/20 07:00 37.3 70 25 89 Mechanical Ventilator 36.00 11/09/20 06:49 81 11/09/20 06:47 76 23 91 45 I & O 11/10/20 07:00 Intake Total 1160 ml Output Total 2175 ml Balance -1015 ml Height & Weight Height: '" Weight: lbs. oz. kg; 25.00 BMI Method: General Appearance: No Apparent Distress, Obese, Other HEENT: PERRL/EOMI, Other Neck: Full Range of Motion, Supple Respiratory: Lungs Clear, Normal Breath Sounds, No Respiratory Distress, Other Cardiovascular: No Murmur, Tachycardia Capillary Refill: Less Than 3 Seconds Extremity: Normal Inspection, Pedal Edema, Swelling Neurologic/Psychiatric: Other Skin: Normal Color, Warm/Dry Results Lab Laboratory Tests 11/09/20 02:30 11/10/20 02:15 Assessment/Plan Assessment/Plan Acute respiratory failure with COVID-19 PNA and ARDS -Continue ventilator -Currently Fentanyl at 50 and precedex at 0.6 -Increase Precedex to 1.5 -D/C sedation and attempt to wean vent. -Check CXR and continue daily CXR -450/16/5 90% -- Intubated 11/03 --- -Propofol 10, and Fentanyl at 75 -Proning pt -Hold TF and reevaluate 11/07 -Decadron -CVP -- done -Will not start Remdesivir secondary to pt being on vent and elevated LFTs. PNA with severe septic shock -LR at 100 -Cefepime and vanco - arterial line -Sultana cultures pending Bacteremia with gram positive cocci -Continue Vancomycin and cefepime Metabolic acidosis -Check LA Hypotension -Levophed gtt ARF -IVF -Monitor Afib RVR -Cardizem is off -Eliquis Acute GIB - Hb is stable -Protonix BID -Pt is on Eliquis monitor closely NSTEMI -Cardiology is following PAULA SMALL DO Nov 10, 2020 06:05
[2020-11-10] MEDS: inSUlin ASPART (NovoLOG) 1 UNIT/0.01 ML (CHARGE PER UNIT) SC SCH ×4 (06:25→23:06)
[2020-11-10] MEDS: CATHETER FLUSH 10 ML SYR IV SCH ×3 (06:25→22:05)
[2020-11-10 06:51] VITALS: BP 111/58
--- NOTE | 2020-11-10 07:39 | Diagnostic Imaging Report ---
CHEST 1 VIEW, AP/PA ONLY Indication: COVID 19 pneumonia Comparison: 11/09/2020 Findings: Stable enteric tube. ET tube has been advanced and now has tip 5.3 cm above the bindu. No change in bilateral pulmonary consolidations. Small left pleural effusion is unchanged. No pneumothorax. Stable right PICC. Impression: 1. Well-positioned support devices. 2. No change in bilateral pulmonary consolidations. Dictated by: Dictated on workstation # [id number]
--- NOTE | 2020-11-10 07:57 | Physical Therapy Progress Note ---
Therapy Progress Note It appears vent weaning will be attempted today, will check on patient this afternoon. CLIFF MCKEE PT Nov 10, 2020 07:57
--- NOTE | 2020-11-10 08:33 | Cardiology Progress Note ---
Subjective Date Seen by Provider: Nov 10, 2020 Time Seen by Provider: 08:32 Subjective/Events-last exam Patient is sedated and intubated, ventilator dependent Review of Systems General: Other (Unable to provide review of system) Objective-Cardiology Exam Last Set of Vital Signs Vital Signs 11/10/20 11/10/20 11/10/20 11/10/20 01:18 06:00 06:18 06:51 Temp 37.2 Pulse 122 Resp 30 B/P (MAP) 122/59 Pulse Ox 89 O2 Delivery Mechanical Ventilator O2 Flow Rate 60.00 FiO2 70 Capillary Refill : Less Than 3 Seconds I&O Intake and Output 11/10/20 00:00 Intake Total 920 ml Output Total 2125 ml Balance -1205 ml Intake Oral 0 ml IV Total 20 ml Tube Feeding 360 ml Other 540 ml Output Urine Total 2125 ml General: Other HEENT: Atraumatic Lungs: Other Heart: Other Neuro: Other Psych/Mental Status: Other Results Lab Laboratory Tests 11/10/20 02:15 A/P-Cardiology Admission Diagnosis COVID-19 pneumonia Acute respiratory failure Chronic atrial fibrillation 952 myocardial infarction Assessment/Plan Acute respiratory failure, ventilator dependent, COVID-19 pneumonia, managed by primary care team Coronary artery disease, type II myocardial infarction with mild elevation of troponin secondary to respiratory failure and hypoxia. Continue to monitor Acute renal insufficiency, renal functions are back to normal. Continue to monitor Chronic atrial fibrillation, rate is controlled at this time. Continue to monitor Chronically abnormal ECG: A Fib with atypical bundle branch block, old ASMI cannot be excluded, unchanged (except for minor differences in lead placement) compared to ECGs of Aug 2020 (done at [facility], [place], [place]) LVEF reported to be normal on echo done at [facility] in 2019 H/o COPD Chronic apixaban anticoag Clinical Quality Measures DVT/VTE Risk/Contraindication: Risk Factor Score Per Nursin RFS Level Per Nursing on Admit: 2=Moderate TORY VALLE MD Nov 10, 2020 08:33
[2020-11-10] MEDS: PANTOPRAZOLE 40 MG (PROTONIX) VIAL IV SCH ×2 (08:52→21:06)
[2020-11-10] MEDS: meTOprolol TARTRATE 25 MG (LOPRESSOR) TABLET PO SCH ×2 (08:53→21:06)
[2020-11-10] MEDS: APIXABAN 5 MG (ELIQUIS) TABLET PO SCH ×2 (08:53→21:06)
[2020-11-10] MEDS: PROPOFOL DRIP (ICU) 100 ML IV SCH ×3 (08:59→23:07)
[2020-11-10] MEDS: ARTIFICIAL TEARS OINT (LACRI-LUBE) 3.5 GM TUBE OU SCH ×3 (09:28→21:06)
[2020-11-10 10:24] VITALS: BP 111/58
[2020-11-10] MEDS: VANCOMYCIN 1500 MG/NS 500 ML IVPB IV SCH ×2 (13:54)
--- NOTE | 2020-11-10 15:32 | NUR ---
Note weaning trial failed, per Rigoberto RN. Would recommend continue with TF of Pulmocare via 60ml bolus feeds q4h , with 30ml free water flushes before/after each bolus. Continue to increase TF by 30ml q8h as tolerated toward goal of 150ml bolus feed q4h. Will continue to follow and reassess as pt needs, intake, and status change. Eyad Segura MS RD LD [phone] cell
--- NOTE | 2020-11-10 15:45 | NUR ---
This RN noticed art line dressing was saturated in blood, upon assessment of art line, found that art line was dislodged from patient wrist. This RN notified HS to notify anesthesia.
--- NOTE | 2020-11-10 16:19 | Anesthesia-Procedure Note ---
Procedures/Interventions Procedure Start/Stop/Diagnosis Date of Procedure: Nov 10, 2020 Start Time: 16:02 Stop Time: 16:12 Arterial Line Arterial Line Catheter: 20G Type: Radial Location: Left Procedure: prepped, draped in sterile fashion, good wave-form was obtained, patient tolerated procedure well, no immediate complications, post procedure area cleaned, post procedure dressing applied FLETCHER BURTON CRNA Nov 10, 2020 16:19
--- NOTE | 2020-11-10 16:30 | NUR ---
KASEY Juarez here to place new art line.
[2020-11-10 18:39] VITALS: BP 140/73
[2020-11-10] MEDS: dilTIAZem DRIP 125 MG/125 ML DRIP IV SCH (19:20)
[2020-11-10 21:58] VITALS: BP 128/67
[2020-11-11] MEDS: fentaNYL DRIP PRE-MIX 250 ML IV SCH ×3 (00:37→22:27)
[2020-11-11] MEDS: CEFEPIME 1,000 MG/SWFI 10 ML IV PUSH IV SCH ×6 (00:43→18:19)
[2020-11-11 01:44] VITALS: BP 142/99
[2020-11-11] MEDS: RT-ALBUTEROL INHALER HFA (VENTOLIN HFA) 18 GM IH SCH ×6 (01:44→22:47)
[2020-11-11] MEDS: DexMEDEtomidine PRE MIX 100 ML IV SCH (02:50)
[2020-11-11] MEDS: PROPOFOL DRIP (ICU) 100 ML IV SCH ×6 (02:58→22:36)
[2020-11-11 03:34] LABS: ABG BASE EXCESS -1.4 MMOL/L (-2.5-2.5); ABG OXYGEN SATURATION 89 % (94-100); ABG PCO2 39 MMHG (35-45); ABG PH 7.39 (7.37-7.43); ABG PO2 63 MMHG (79-93); ABG TCO2 24.1 MMOL/L (21.0-31.0)
[2020-11-11 03:35] LABS: BASOPHILS % (AUTO) 0 % (0-10); EOSINOPHILS % (AUTO) 0 % (0-10); HEMATOCRIT 38 % (40-54); HEMOGLOBIN 12.5 g/dL (13.3-17.7); LYMPHOCYTES # (AUTO) 0.7 10^3/uL (1.0-4.0); LYMPHOCYTES % (AUTO) 7 % (12-44); MEAN CORPUSCULAR HEMOGLOBIN 30 pg (25-34); MEAN CORPUSCULAR HGB CONC 33 g/dL (32-36); MEAN CORPUSCULAR VOLUME 90 fL (80-99); MEAN PLATELET VOLUME 11.3 fL (9.0-12.2); MONOCYTES # (AUTO) 0.5 10^3/uL (0.0-1.0); MONOCYTES % (AUTO) 6 % (0-12); NEUTROPHILS # (AUTO) 7.9 10^3/uL (1.8-7.8); NEUTROPHILS % (AUTO) 86 % (42-75); PLATELET COUNT 181 10^3/uL (130-400); WHITE BLOOD COUNT 9.2 10^3/uL (4.3-11.0)
[2020-11-11 03:38] LABS: ALLENS TEST ARTLINE; INSPIRED O2 50; PATIENT TEMP 36.9; VENTILATOR YES
[2020-11-11 03:59] LABS: CHLORIDE 112 MMOL/L (98-107); POTASSIUM 4.7 MMOL/L (3.6-5.0); SODIUM 142 MMOL/L (135-145)
[2020-11-11 04:01] LABS: CALCIUM 7.6 MG/DL (8.5-10.1); GLUCOSE 153 MG/DL (70-105); TRIGLYCERIDES 160 MG/DL (<150)
[2020-11-11 04:03] LABS: CARBON DIOXIDE 20 MMOL/L (21-32)
[2020-11-11 04:05] LABS: CREATININE SERUM 0.78 MG/DL (0.60-1.30); GFR ESTIMATED > 60; PHOSPHORUS 3.3 MG/DL (2.3-4.7)
[2020-11-11 04:06] LABS: BUN/CREATININE RATIO 60
[2020-11-11] MEDS: inSUlin ASPART (NovoLOG) 1 UNIT/0.01 ML (CHARGE PER UNIT) SC SCH ×3 (05:17→17:52)
[2020-11-11] MEDS: CATHETER FLUSH 10 ML SYR IV SCH ×3 (05:17→22:34)
--- NOTE | 2020-11-11 05:54 | Pulmonary Progress Note ---
Subjective Time Seen by a Provider: 05:50 Subjective/Events-last exam Pt is not ready weaning. Sepsis Event Evaluation Height, Weight, BMI Height: '" Weight: lbs. oz. kg; 25.00 BMI Method: Exam Exam Vital Signs Date Time Temp Pulse Resp B/P (MAP) Pulse Ox O2 Delivery O2 Flow Rate FiO2 11/11/20 05:00 78 17 125/78 (94) 95 Mechanical Ventilator 55.00 11/11/20 04:55 55.00 11/11/20 04:00 81 20 121/73 (91) 87 Mechanical Ventilator 60.00 11/11/20 03:00 86 27 133/68 (89) 92 Mechanical Ventilator 60.00 11/11/20 02:58 75 142/69 11/11/20 02:50 75 20 150/69 93 Mechanical Ventilator 50.00 11/11/20 02:00 80 18 124/86 (97) 93 Mechanical Ventilator 60.00 11/11/20 01:44 79 26 92 50 11/11/20 01:00 81 23 119/82 (93) 91 Mechanical Ventilator 60.00 11/11/20 00:52 111 11/11/20 00:00 Mechanical Ventilator 11/11/20 00:00 85 23 122/108 (116) 90 Mechanical Ventilator 60.00 11/10/20 23:00 73 23 131/76 (91) 97 Mechanical Ventilator 60.00 11/10/20 22:53 35.9 85 25 149/72 99 50.00 11/10/20 22:00 71 19 129/75 (97) 96 Mechanical Ventilator 60.00 11/10/20 22:00 Mechanical Ventilator 60.00 11/10/20 21:58 79 25 96 50 11/10/20 21:24 91 Mechanical Ventilator 70 11/10/20 21:00 74 18 131/87 (102) 96 Mechanical Ventilator 60.00 11/10/20 20:15 80 21 138/82 (95) 100 11/10/20 20:00 81 22 138/80 (104) 99 Mechanical Ventilator 60.00 11/10/20 19:45 79 19 133/67 (82) 99 Mechanical Ventilator 60.00 11/10/20 19:30 82 20 131/69 (90) 99 Mechanical Ventilator 60.00 11/10/20 19:15 101 23 144/77 (88) 99 Mechanical Ventilator 60.00 11/10/20 19:00 77 11/10/20 19:00 86 22 136/77 (95) 90 Mechanical Ventilator 60.00 11/10/20 18:39 85 25 92 50 11/10/20 18:00 37.2 120 40 85 Mechanical Ventilator 60.00 11/10/20 17:51 85 133/67 11/10/20 17:00 37.4 80 21 96 Mechanical Ventilator 60.00 11/10/20 16:30 Automatic Cuff 11/10/20 16:00 37.5 80 24 121/97 (105) 96 Mechanical Ventilator 60.00 11/10/20 15:00 Mechanical Ventilator 50.00 Arterial Line 11/10/20 15:00 37.7 77 25 127/61 (83) 97 Mechanical Ventilator 60.00 11/10/20 15:00 37.7 77 25 127/61 (83) 97 Mechanical Ventilator 60.00 11/10/20 14:21 102 25 97 50 11/10/20 14:00 37.9 184 35 86 Mechanical Ventilator 60.00 11/10/20 13:00 37.8 135 28 98 Mechanical Ventilator 60.00 11/10/20 12:44 85 11/10/20 12:00 37.8 85 24 98 Mechanical Ventilator 60.00 11/10/20 11:00 37.7 100 27 98 Mechanical Ventilator 60.00 11/10/20 10:30 97 29 98 60 11/10/20 10:24 100 29 94 70 11/10/20 10:00 37.6 109 28 98 Mechanical Ventilator 60.00 11/10/20 09:00 37.4 89 32 95 Mechanical Ventilator 70.00 11/10/20 09:00 91 Mechanical Ventilator 70 11/10/20 08:54 84 19 133/69 92 Mechanical Ventilator 70.00 11/10/20 08:00 37.3 87 20 90 Mechanical Ventilator 70.00 11/10/20 08:00 Mechanical Ventilator 70.00 11/10/20 07:00 37.3 124 26 90 Mechanical Ventilator 70.00 11/10/20 06:51 122 30 89 70 11/10/20 06:39 131 11/10/20 06:18 60.00 11/10/20 06:00 37.2 74 21 97 Mechanical Ventilator 90.00 I & O 11/11/20 07:00 Intake Total 1765 ml Output Total 2275 ml Balance -510 ml Height & Weight Height: '" Weight: lbs. oz. kg; 25.00 BMI Method: General Appearance: No Apparent Distress, WD/WN HEENT: PERRL/EOMI, Other (Dry mucous membranes) Neck: Full Range of Motion, Supple Respiratory: Crackles, Decreased Breath Sounds, Respiratory Distress, Wheezing Cardiovascular: Regular Rate, Rhythm, No Edema, Irregularly Irregular, Tachycardia Capillary Refill: Less Than 3 Seconds Extremity: Normal Inspection, Normal Range of Motion, Non Tender, No Calf Tenderness, No Pedal Edema Skin: Normal Color, Warm/Dry Results Lab Laboratory Tests 11/10/20 02:15 11/11/20 02:55 Assessment/Plan Assessment/Plan Acute respiratory failure with COVID-19 PNA and ARDS -Continue ventilator -Check CXR and continue daily CXR -450/16/5 90% -- Intubated 11/03 --- -Propofol 10, and Fentanyl at 75 -Proning -- resume -Continue TF -Decadron -CVP -- done -Will not start Remdesivir secondary to pt being on vent and elevated LFTs. PNA with severe septic shock -LR at 100 -Cefepime and vanco - arterial line -Sultana cultures pending Bacteremia with gram positive cocci -Continue Vancomycin and cefepime Metabolic acidosis -Check LA Hypotension -Levophed gtt ARF -IVF -Monitor Afib RVR -Cardizem is off -Eliquis Acute GIB - Hb is stable -Protonix BID -Pt is on Eliquis monitor closely NSTEMI -Cardiology is following PAULA SMALL DO Nov 11, 2020 05:54
[2020-11-11] MEDS: LACTATED RINGERS 1,000 ML IV SCH (06:20)
[2020-11-11 07:24] VITALS: BP 123/56
--- NOTE | 2020-11-11 08:00 | Diagnostic Imaging Report ---
Indication: Respiratory distress Portable chest shows mild cardiomegaly with normal vascularity. There has been considerable clearing of the bilateral infiltrates since 11/10/2020. There is no significant effusion. There is no pneumothorax. The ET tube, OG tube and PICC line remain in place. IMPRESSION: Improving bilateral infiltrates. Dictated by: Dictated on workstation # [id number]
--- NOTE | 2020-11-11 08:18 | Physical Therapy Progress Note ---
Therapy Progress Note Patient is still ventilated and sedated. Will continue to monitor. CLIFF MCKEE PT Nov 11, 2020 08:18
[2020-11-11] MEDS: ARTIFICIAL TEARS OINT (LACRI-LUBE) 3.5 GM TUBE OU SCH ×3 (08:39→20:51)
[2020-11-11] MEDS: APIXABAN 5 MG (ELIQUIS) TABLET PO SCH ×2 (08:40→20:50)
[2020-11-11] MEDS: meTOprolol TARTRATE 25 MG (LOPRESSOR) TABLET PO SCH ×2 (08:40→20:50)
[2020-11-11] MEDS: PANTOPRAZOLE 40 MG (PROTONIX) VIAL IV SCH ×2 (08:40→20:50)
[2020-11-11 10:22] VITALS: BP 129/61
--- NOTE | 2020-11-11 11:29 | Cardiology Progress Note ---
Subjective Date Seen by Provider: Nov 11, 2020 Time Seen by Provider: 10:40 Subjective/Events-last exam Intubated and sedated. Review of Systems General: Other (unable to provide review of systems) Objective-Cardiology Exam Last Set of Vital Signs Vital Signs 11/10/20 11/11/20 11/11/20 11/11/20 22:53 10:42 13:00 13:55 Temp 35.9 Pulse 100 Resp 20 B/P (MAP) 129/61 Pulse Ox 93 O2 Delivery Mechanical Ventilator O2 Flow Rate 45.00 FiO2 45 Capillary Refill : Less Than 3 Seconds I&O Intake and Output 11/11/20 00:00 Intake Total 1830 ml Output Total 2600 ml Balance -770 ml Intake Oral 0 ml IV Total 1230 ml Tube Feeding 300 ml Other 300 ml Output Urine Total 2600 ml General: Other (sedated and intubated) HEENT: Other (sedated and intubated) Heart: Other (atrial fibrillation, rate controlled) Neuro: Other (sedated and intubated) Psych/Mental Status: Other (sedated and intubated) Results Lab Laboratory Tests 11/11/20 02:55 A/P-Cardiology Admission Diagnosis COVID-19 pneumonia Acute respiratory failure Chronic atrial fibrillation 952 myocardial infarction Assessment/Plan Acute respiratory failure, ventilator dependent, COVID-19 pneumonia, managed by primary care team Coronary artery disease, type II myocardial infarction with mild elevation of troponin secondary to respiratory failure and hypoxia. Continue to monitor Acute renal insufficiency, renal functions are back to normal. Continue to monitor Chronic atrial fibrillation, rate is controlled at this time. Maintained on E liquis. Continue to monitor Chronically abnormal ECG: A Fib with atypical bundle branch block, old ASMI cannot be excluded, unchanged (except for minor differences in lead placement) compared to ECGs of Aug 2020 (done at [facility], [facility], [place]) LVEF reported to be normal on echo done at [facility] in 2019 H/o COPD Patient was seen and evaluated with Dalila, examination performed, management plan was discussed, agree with the current scribed note, I made few changes to the note using Italic font Patient was seen, in prone position, sedated and intubated Heart rate is better controlled, occasional episode of tachycardia, off Cardizem drip at this time Continue on current treatment, managed by Dr. Iqbal Clinical Quality Measures DVT/VTE Risk/Contraindication: Risk Factor Score Per Nursin RFS Level Per Nursing on Admit: 2=Moderate DALILA DELATORRE Nov 11, 2020 11:29 am TORY VALLE MD Nov 11, 2020 2:01 pm
[2020-11-11] MEDS: VANCOMYCIN 1500 MG/NS 500 ML IVPB IV SCH ×2 (12:24)
[2020-11-11 13:55] VITALS: BP 131/70
--- NOTE | 2020-11-11 14:47 | NUR ---
PT ATTEMPTING TO MOVE HEAD AND ARMS WHILE PRONE SINCE DAUGHTER VISIT. INCREASED COUGHING. HR SLIGHTLY ELEVATED. PROPOFOL AND FENTANYL TITRATED FOR PATIENT SAFETY AND COMFORT.
--- NOTE | 2020-11-11 15:11 | NUR ---
Note pt is currently receiving TF of Pulmocare via 60ml bolus feeds q4h with 30ml free water flushes before/after each bolus. Continue to increase TF by 30ml q8h as tolerated toward goal of 150ml bolus feeds q4h. Will continue to follow and reassess as pt needs, intake, and status change. Eyad Segura, MS RD LD [phone] cell
[2020-11-11 18:52] VITALS: BP 110/63
--- NOTE | 2020-11-11 19:03 | NUR ---
ATTEMPTED TO CALL PARAMJIT AT NUMBER PROVIDED WITH NO ANSWER. PHONE UNABLE TO CONNECT.
[2020-11-11] MEDS: dilTIAZem DRIP 125 MG/125 ML DRIP IV SCH (19:09)
--- NOTE | 2020-11-11 21:12 | NUR ---
Called and spoke with Amanda regarding patient status.. Phone number updated on emergency contact page. Questions answered.
[2020-11-11 22:47] VITALS: BP 95/47
[2020-11-12] MEDS: CEFEPIME 1,000 MG/SWFI 10 ML IV PUSH IV SCH ×4 (00:05→08:29)
[2020-11-12] MEDS: inSUlin ASPART (NovoLOG) 1 UNIT/0.01 ML (CHARGE PER UNIT) SC SCH ×5 (00:05→23:40)
[2020-11-12 02:42] VITALS: BP 108/57
[2020-11-12] MEDS: RT-ALBUTEROL INHALER HFA (VENTOLIN HFA) 18 GM IH SCH ×6 (02:42→22:41)
[2020-11-12 03:13] LABS: ABG BASE EXCESS -0.4 MMOL/L (-2.5-2.5); ABG OXYGEN SATURATION 98 % (94-100); ABG PCO2 44 MMHG (35-45); ABG PH 7.36 (7.37-7.43); ABG PO2 107 MMHG (79-93); ABG TCO2 25.6 MMOL/L (21.0-31.0)
[2020-11-12 03:19] LABS: INSPIRED O2 45%; PATIENT TEMP 37.4; VENTILATOR YES
[2020-11-12 03:23] LABS: BASOPHILS % (AUTO) 0 % (0-10); EOSINOPHILS # (AUTO) 0.2 10^3/uL (0.0-0.3); EOSINOPHILS % (AUTO) 1 % (0-10); HEMATOCRIT 34 % (40-54); LYMPHOCYTES # (AUTO) 0.8 10^3/uL (1.0-4.0); LYMPHOCYTES % (AUTO) 8 % (12-44); MEAN CORPUSCULAR HEMOGLOBIN 30 pg (25-34); MEAN CORPUSCULAR HGB CONC 32 g/dL (32-36); MEAN CORPUSCULAR VOLUME 92 fL (80-99); MEAN PLATELET VOLUME 11.8 fL (9.0-12.2); MONOCYTES # (AUTO) 0.6 10^3/uL (0.0-1.0); MONOCYTES % (AUTO) 6 % (0-12); NEUTROPHILS % (AUTO) 84 % (42-75); PLATELET COUNT 194 10^3/uL (130-400); WHITE BLOOD COUNT 10.6 10^3/uL (4.3-11.0)
[2020-11-12 03:24] LABS: CHLORIDE 112 MMOL/L (98-107); POTASSIUM 4.9 MMOL/L (3.6-5.0); SODIUM 141 MMOL/L (135-145)
[2020-11-12 03:26] LABS: CALCIUM 7.1 MG/DL (8.5-10.1); GLUCOSE 135 MG/DL (70-105); TRIGLYCERIDES 133 MG/DL (<150)
[2020-11-12 03:28] LABS: CARBON DIOXIDE 21 MMOL/L (21-32)
[2020-11-12 03:30] LABS: CREATININE SERUM 0.82 MG/DL (0.60-1.30); GFR ESTIMATED > 60; PHOSPHORUS 3.3 MG/DL (2.3-4.7)
[2020-11-12 03:31] LABS: BUN/CREATININE RATIO 57
[2020-11-12 03:33] LABS: MAGNESIUM 2.8 MG/DL (1.6-2.4)
[2020-11-12 03:44] LABS: ELLIPT/OVALOCYTES SLIGHT; EOSINOPHILS % (MANUAL) 1 %; LYMPHOCYTES % (MANUAL) 8 %; MONOCYTES % (MANUAL) 5 %; NEUTROPHILS % (MANUAL) 86 %
--- NOTE | 2020-11-12 04:19 | Pulmonary Progress Note ---
Subjective Time Seen by a Provider: 04:14 Subjective/Events-last exam No complications noted. Sepsis Event Evaluation Height, Weight, BMI Height: '" Weight: lbs. oz. kg; 25.00 BMI Method: Exam Exam Vital Signs Date Time Temp Pulse Resp B/P (MAP) Pulse Ox O2 Delivery O2 Flow Rate FiO2 11/12/20 03:00 37.4 86 16 95 Mechanical Ventilator 45.00 11/12/20 02:42 90 16 95 45 11/12/20 02:00 37.4 89 16 95 Mechanical Ventilator 45.00 11/12/20 01:00 37.5 90 15 95 Mechanical Ventilator 45.00 11/12/20 00:55 100 11/12/20 00:00 105 15 95 Mechanical Ventilator 45.00 11/11/20 23:00 108 13 93 Mechanical Ventilator 45.00 11/11/20 22:47 97 17 93 45 11/11/20 22:36 125 128/60 11/11/20 22:33 126 131/60 11/11/20 22:00 112 16 95 Mechanical Ventilator 45.00 11/11/20 21:13 95 Mechanical Ventilator 45 11/11/20 21:00 101 16 95 Mechanical Ventilator 45.00 11/11/20 20:00 100 16 94 Mechanical Ventilator 45.00 11/11/20 19:11 98 11/11/20 19:00 85 16 96 Mechanical Ventilator 45.00 11/11/20 18:52 88 16 95 45 11/11/20 18:00 106 16 95 Mechanical Ventilator 45.00 11/11/20 17:00 107 15 95 Mechanical Ventilator 45.00 11/11/20 16:24 82 131/70 11/11/20 16:23 82 131/70 11/11/20 16:00 82 16 95 Mechanical Ventilator 45.00 11/11/20 15:00 97 13 94 Mechanical Ventilator 45.00 11/11/20 14:00 86 19 92 Mechanical Ventilator 45.00 11/11/20 13:55 100 20 93 45 11/11/20 13:00 88 21 93 Mechanical Ventilator 45.00 11/11/20 12:42 72 11/11/20 12:25 45.00 11/11/20 12:00 66 15 95 Mechanical Ventilator 50.00 11/11/20 11:00 75 17 94 Mechanical Ventilator 50.00 11/11/20 10:42 77 129/61 11/11/20 10:22 77 23 93 50 11/11/20 10:00 68 16 90 Mechanical Ventilator 50.00 11/11/20 09:00 77 15 91 Mechanical Ventilator 50.00 11/11/20 08:45 90 Mechanical Ventilator 50 11/11/20 08:00 63 15 93 Mechanical Ventilator 50.00 11/11/20 07:24 73 17 93 45 11/11/20 07:00 72 15 94 Mechanical Ventilator 50.00 11/11/20 06:42 85 11/11/20 06:18 50.00 11/11/20 06:00 83 18 126/77 (93) 97 Mechanical Ventilator 55.00 11/11/20 05:00 78 17 125/78 (94) 95 Mechanical Ventilator 55.00 11/11/20 04:55 55.00 I & O 11/12/20 07:00 Intake Total 1475 ml Output Total 1425 ml Balance 50 ml Height & Weight Height: '" Weight: lbs. oz. kg; 25.00 BMI Method: General Appearance: No Apparent Distress, WD/WN HEENT: PERRL/EOMI, Other (Dry mucous membranes) Neck: Full Range of Motion, Supple Respiratory: Crackles, Decreased Breath Sounds, Respiratory Distress, Wheezing Cardiovascular: Regular Rate, Rhythm, No Edema, Irregularly Irregular, Tachycardia Capillary Refill: Less Than 3 Seconds Extremity: Normal Inspection, Normal Range of Motion, Non Tender, No Calf Tenderness, No Pedal Edema Skin: Normal Color, Warm/Dry Results Lab Laboratory Tests 11/11/20 02:55 11/12/20 03:00 Assessment/Plan Assessment/Plan Acute respiratory failure with COVID-19 PNA and ARDS -Continue ventilator -Check CXR and continue daily CXR -/16/ 45% -- Intubated 11/03 --- -Decrease PEEP to 8 and Hold proning -Propofol 45, and Fentanyl at 200 -restart Precedex and titrate propofol down -Sedation vacation and once pt is awake restart above sedation at 1/2 the dose. -Possible weaning tomorrow. -Continue TF -Lasix 40mg IV x 1 -Decadron -CVP -- done -Will not start Remdesivir secondary to pt being on vent and elevated LFTs. PNA with severe septic shock -LR at 30 -Cefepime and vanco - arterial line -Sultana cultures pending Bacteremia with gram positive cocci -Continue Vancomycin and cefepime Metabolic acidosis -monitor ARF -IVF -Monitor Afib RVR -Cardizem is off -Eliquis Acute GIB - Hb is stable -Protonix BID -Pt is on Eliquis monitor closely NSTEMI -Cardiology is following PAULA SMALL DO Nov 12, 2020 04:19
[2020-11-12] MEDS ORDERED: FUROSEMIDE 40 MG/4 ML INJ (LASIX) IVP ONE (04:30)
[2020-11-12] MEDS: fentaNYL DRIP PRE-MIX 250 ML IV SCH ×2 (04:55→15:52)
[2020-11-12] MEDS: CATHETER FLUSH 10 ML SYR IV SCH ×3 (06:12→21:14)
[2020-11-12] MEDS ORDERED: DexMEDEtomidine PRE MIX 100 ML IV ONE ×2 (07:03→13:56)
[2020-11-12 07:07] VITALS: BP 124/56
--- NOTE | 2020-11-12 07:55 | Physical Therapy Progress Note ---
Therapy Progress Note Patient is still ventilated and sedated. Will continue to monitor. CLIFF MCKEE PT Nov 12, 2020 07:55
[2020-11-12] MEDS: PROPOFOL DRIP (ICU) 100 ML IV SCH ×2 (08:09→08:13)
[2020-11-12] MEDS: APAP 325 MG/10.15 ML LIQ (TYLENOL) UDC PO PRN (08:13)
[2020-11-12] MEDS: meTOprolol TARTRATE 25 MG (LOPRESSOR) TABLET PO SCH ×2 (08:13→21:14)
[2020-11-12] MEDS: LACTATED RINGERS 1,000 ML IV SCH (08:14)
[2020-11-12] MEDS: ARTIFICIAL TEARS OINT (LACRI-LUBE) 3.5 GM TUBE OU SCH ×3 (08:14→21:14)
[2020-11-12] MEDS: APIXABAN 5 MG (ELIQUIS) TABLET PO SCH ×2 (08:14→21:14)
[2020-11-12] MEDS: PANTOPRAZOLE 40 MG (PROTONIX) VIAL IV SCH ×2 (08:14→21:14)
--- NOTE | 2020-11-12 08:59 | Diagnostic Imaging Report ---
EXAMINATION: Chest radiograph, portable AP view. DATE: 11/12/2020 4:35 AM INDICATION: 85-year-old male, COVID positive. Shortness of breath. COMPARISON: November 11, 2020. FINDINGS: The endotracheal tube is approximately 5.3 cm above the bindu. The nasogastric tube is in the stomach. The right-sided venous line overlies the mid SVC. Heart size and mediastinal contours are unchanged. There is no identified pneumothorax. There is multifocal bilateral lung consolidation which is essentially unchanged. IMPRESSION: 1. Unchanged multifocal bilateral lung consolidation. 2. Support lines and tubes as above. Dictated by: Dictated on workstation # [id number]
--- NOTE | 2020-11-12 09:12 | Cardiology Progress Note ---
Subjective Date Seen by Provider: Nov 12, 2020 Time Seen by Provider: 09:11 Subjective/Events-last exam patient is sedated and intubated Review of Systems General: Other (unable to provide review of systems) Objective-Cardiology Exam Last Set of Vital Signs Vital Signs 11/12/20 11/12/20 11/12/20 08:13 11:05 12:00 Temp 37.4 Pulse 72 Resp 16 B/P (MAP) 124/56 Pulse Ox 97 O2 Delivery Mechanical Ventilator O2 Flow Rate 45.00 FiO2 40 Capillary Refill : Less Than 3 Seconds I&O Intake and Output 11/12/20 00:00 Intake Total 2385 ml Output Total 2025 ml Balance 360 ml Intake Oral 0 ml IV Total 1785 ml Tube Feeding 360 ml Other 240 ml Output Urine Total 2025 ml General: Other (sedated and intubated) HEENT: Other (sedated and intubated) Heart: Other (atrial fibrillation, rate controlled) Neuro: Other (sedated and intubated) Psych/Mental Status: Other (sedated and intubated) Results Lab Laboratory Tests 11/12/20 03:00 A/P-Cardiology Admission Diagnosis COVID-19 pneumonia Acute respiratory failure Chronic atrial fibrillation 952 myocardial infarction Assessment/Plan Acute respiratory failure, ventilator dependent, COVID-19 pneumonia, managed by primary care team Coronary artery disease, type II myocardial infarction with mild elevation of troponin secondary to respiratory failure and hypoxia. Continue to monitor Acute renal insufficiency, renal functions are back to normal. Continue to monitor Chronic atrial fibrillation, was tachycardic today, has been off diltiazem drip, will be restarted, restart sedation, monitor heart rate and blood pressure Chronically abnormal ECG: A Fib with atypical bundle branch block, old ASMI cannot be excluded, unchanged (except for minor differences in lead placement) compared to ECGs of Aug 2020 (done at [facility], [facility], [place]) LVEF reported to be normal on echo done at [facility] in 2019 H/o COPD Addendum on November 12, 2020 at 1320 Patient had an episode of nonsustained ventricular tachycardia, probably due to hypoxemia, I will give him a bolus of amiodarone and Coumadin amiodarone drip at this point, monitor his electrolytes and blood pressure Clinical Quality Measures DVT/VTE Risk/Contraindication: Risk Factor Score Per Nursin RFS Level Per Nursing on Admit: 2=Moderate TORY VLALE MD Nov 12, 2020 09:12
[2020-11-12 11:05] VITALS: BP 124/56
[2020-11-12] MEDS ORDERED: ALBUMIN 25% 25 GM/100 ML 100 ML IV PRN (12:00)
--- NOTE | 2020-11-12 12:04 | NUR ---
SPOKE WITH PATIENTS CINTHYA YUSUF, ANSWERED ALL QUESTIONS AND UPDATED ON CONDITION. SPOKE HER REGARDING POSSIBLE [facility] REFERRAL. SHE BELIEVES THAT FAMILY IS ON BOARD BUT WOULD LIKE TO TALK WITH A GUN STRIPER FROM [facility] BEFORE DECIDING. I THEN CALLED JAMI WITH [facility] AND GAVE HER AXEL NUMBER. JAMI WILL LET US KNOW WHAT FAMILY DECIDES IF ANYTHING CHANGES.
[2020-11-12] MEDS ORDERED: AMIODARONE INJECTION 150 MG in D5W 100 ML IVPB 100 ML IV NR (13:30)
[2020-11-12] MEDS: VANCOMYCIN 1500 MG/NS 500 ML IVPB IV SCH ×2 (13:55)
[2020-11-12] MEDS: AMIODARONE INJECTION 450 MG in D5W IV SOLUTION (EXCEL) 250 ML IV SCH ×2 (14:01→21:12)
--- NOTE | 2020-11-12 14:27 | NUR ---
CM/SS: Per [facility] (Praveena) - Dr Iqbal has requested that a referral be sent for consideration for placement. Referral faxed [phone].
[2020-11-12] MEDS: DexMEDEtomidine PRE MIX 100 ML IV SCH (14:32)
[2020-11-12 14:43] VITALS: BP 86/45
--- NOTE | 2020-11-12 15:16 | NUR ---
SPOKE WITH FAMILY AND THEY HAVE CONSENTED TO [facility]. [facility] NOTIFIED.
--- NOTE | 2020-11-12 17:45 | NUR ---
Note pt is currently receiving TF of Pulmocare via 150ml bolus feeds q4h with 30ml free water flushes before/after each bolus. Note pt is currently at goal for bolus feeds, and currently meeting his needs. Will continue to follow and reassess as pt needs, intake, and status change. Eyad Segura, MS RD LD [phone] cell
[2020-11-12 18:49] VITALS: BP 120/61
[2020-11-12] MEDS: dilTIAZem DRIP 125 MG/125 ML DRIP IV SCH (21:12)
[2020-11-12 22:41] VITALS: BP 120/61
[2020-11-13] MEDS: DexMEDEtomidine PRE MIX 100 ML IV SCH ×2 (01:09→10:31)
[2020-11-13 02:31] VITALS: BP 120/61
[2020-11-13] MEDS: RT-ALBUTEROL INHALER HFA (VENTOLIN HFA) 18 GM IH SCH ×3 (02:31→11:32)
[2020-11-13 03:22] LABS: BASOPHILS % (AUTO) 0 % (0-10); EOSINOPHILS # (AUTO) 0.1 10^3/uL (0.0-0.3); EOSINOPHILS % (AUTO) 1 % (0-10); HEMATOCRIT 35 % (40-54); HEMOGLOBIN 11.6 g/dL (13.3-17.7); LYMPHOCYTES # (AUTO) 0.8 10^3/uL (1.0-4.0); LYMPHOCYTES % (AUTO) 9 % (12-44); MEAN CORPUSCULAR HEMOGLOBIN 30 pg (25-34); MEAN CORPUSCULAR HGB CONC 33 g/dL (32-36); MEAN CORPUSCULAR VOLUME 91 fL (80-99); MEAN PLATELET VOLUME 11.6 fL (9.0-12.2); MONOCYTES # (AUTO) 0.5 10^3/uL (0.0-1.0); MONOCYTES % (AUTO) 6 % (0-12); NEUTROPHILS # (AUTO) 7.5 10^3/uL (1.8-7.8); NEUTROPHILS % (AUTO) 83 % (42-75); PLATELET COUNT 183 10^3/uL (130-400); WHITE BLOOD COUNT 8.9 10^3/uL (4.3-11.0)
[2020-11-13 03:24] LABS: ABG BASE EXCESS -0.7 MMOL/L (-2.5-2.5); ABG OXYGEN SATURATION 94 % (94-100); ABG PCO2 34 MMHG (35-45); ABG PH 7.44 (7.37-7.43); ABG PO2 68 MMHG (79-93); ABG TCO2 24.1 MMOL/L (21.0-31.0)
[2020-11-13 03:25] LABS: ALLENS TEST ART LINE; INSPIRED O2 30%; PATIENT TEMP 36.1; VENTILATOR YES
[2020-11-13 03:41] LABS: ALANINE AMINOTRANSFERASE 242 U/L (0-55); ALBUMIN 2.2 GM/DL (3.2-4.5); ALKALINE PHOSPHATASE 144 U/L (40-136); BILIRUBIN,TOTAL 0.8 MG/DL (0.1-1.0); BUN/CREATININE RATIO 60; CALCIUM 7.2 MG/DL (8.5-10.1); CARBON DIOXIDE 19 MMOL/L (21-32); CHLORIDE 111 MMOL/L (98-107); CREATININE SERUM 0.83 MG/DL (0.60-1.30); GFR ESTIMATED > 60; GLUCOSE 156 MG/DL (70-105); MAGNESIUM 2.8 MG/DL (1.6-2.4); PHOSPHORUS 3.3 MG/DL (2.3-4.7); POTASSIUM 4.6 MMOL/L (3.6-5.0); SODIUM 138 MMOL/L (135-145); TOTAL PROTEIN 4.9 GM/DL (6.4-8.2); TRIGLYCERIDES 90 MG/DL (<150)
[2020-11-13] MEDS: inSUlin ASPART (NovoLOG) 1 UNIT/0.01 ML (CHARGE PER UNIT) SC SCH ×2 (06:22→12:46)
[2020-11-13] MEDS: CATHETER FLUSH 10 ML SYR IV SCH (06:31)
[2020-11-13] MEDS: LACTATED RINGERS 1,000 ML IV SCH (06:31)
[2020-11-13] MEDS: PROPOFOL DRIP (ICU) 100 ML IV SCH (06:32)
[2020-11-13] MEDS: PANTOPRAZOLE 40 MG (PROTONIX) VIAL IV SCH (07:47)
[2020-11-13] MEDS: APIXABAN 5 MG (ELIQUIS) TABLET PO SCH (07:47)
[2020-11-13] MEDS: meTOprolol TARTRATE 25 MG (LOPRESSOR) TABLET PO SCH (07:47)
[2020-11-13] MEDS: ARTIFICIAL TEARS OINT (LACRI-LUBE) 3.5 GM TUBE OU SCH (07:48)
[2020-11-13] MEDS: fentaNYL DRIP PRE-MIX 250 ML IV SCH (07:48)
[2020-11-13 07:50] VITALS: BP 115/59
--- NOTE | 2020-11-13 07:59 | Diagnostic Imaging Report ---
EXAMINATION: Chest 1 view HISTORY: COVID positive. Followup. Intubated. COMPARISON: 11/12/2020. FINDINGS: Stable configuration of the endotracheal tube, enteric tube, and right PICC. Improved aeration is seen in the right lung with stable opacities in the left lung. No large pleural effusion or pneumothorax. Stable cardiac silhouette. IMPRESSION: 1. Improved aeration in the right lung with stable opacities throughout the left lung. 2. Stable support devices. Dictated by: Dictated on workstation # [id number]
--- NOTE | 2020-11-13 08:04 | Physical Therapy Progress Note ---
Therapy Progress Note Patient is still ventilated and sedated. Will continue to monitor. CLIFF MCKEE PT Nov 13, 2020 08:03
--- NOTE | 2020-11-13 08:55 | NUR ---
Daughter Angel contacted this linoleum layer to share updates on plans for pt to transfer to [place]. She expressed that is will be emotionally difficult to not see him herself, but that after the her family will be able to visit him.
--- NOTE | 2020-11-13 10:08 | NUR ---
SPOKE WITH JAMI FROM [facility], VERIFIED ACCEPTANCE TO THAT FACILITY TODAY. PT WILL GO TO [facility] AND CAN GO ANYTIME. REPORT WAS CALLED TO CHRISTINA ABDI AT [phone]. AWAITING FAMILY APPROVAL OF TRANSPORT AT THIS TIME. SHIFT CAPTAIN FOR [facility] NOTIFIED OF TRANSPORT.
--- NOTE | 2020-11-13 10:42 | Discharge Summary ---
Diagnosis/Chief Complaint Date of Admission Nov 03, 2020 at 17:20 Date of Discharge Oct at 1200 Discharge Date: Nov 13, 2020 Discharge Time: 12:00 Admission Diagnosis acute respiratory failure COVID-19 Septic shock secondary to COVID Primary Care No,Local Physician Discharge Diagnosis respiratory failure secondary to COVID-19 Septic shock secondary to number 1 Staph septicemia Chronic atrial fibrillation with RVR Hypotension (1) Acute respiratory distress syndrome (ARDS) due to COVID-19 virus Status: Acute (2) PNA (pneumonia) Status: Acute (3) Bacteremia due to coagulase-negative Staphylococcus Status: Acute (4) Atrial fibrillation with rapid ventricular response Status: Acute Discharge Summary Procedures/Consulations cardiology Pulmonary Discharge Physical Exam Allergies: Coded Allergies: No Known Drug Allergies (Unverified , 11/03/20) Vitals & I&Os Vital Signs Date Time Temp Pulse Resp B/P (MAP) Pulse Ox O2 Delivery O2 Flow Rate FiO2 11/13/20 09:00 36.0 80 21 93 Mechanical Ventilator 45.00 11/13/20 08:30 30 General Appearance: Chronically ill, Obese, Other (sedated) HEENT: Other (large pressure ulcer on the chin with epistaxis) Respiratory: Lungs Clear, Normal Breath Sounds, No Accessory Muscle Use Cardiovascular: Irregularly Irregular Gastrointestinal: Normal Bowel Sounds, Non Tender, Soft Extremity: Pedal Edema, Swelling Skin: Pallor Neurologic/Psychiatric: Other (sedated) Hospital Course Was the Problem List Reviewed?: Yes patient was admitted in acute respiratory failure after a BAM infusion. The patient was symptomatic with Covid 3 days prior to this and was tested positive the day before. the patient was intubated emergently in the emergency room and transferred to floor at [facility].. Remdesivir was not instituted. the patient blood cultures cultures grew out multiple staph organisms and the patient has completed 7 days of vancomycin. thus far. patient has been on amiodarone for his A. fib with RVR. He currently is off pressor support. He was prone to develop a pressure ulceration on his chin. Skin is otherwise intact. at the time of transfer to [facility] the patient is hemodynamically stable and on vent settings of PEEP of 8 and FiO2 of 30 percent. Labs (last 24 hrs) Laboratory Tests 11/12/20 11:24: Glucometer 134H 11/12/20 17:12: Glucometer 187H 11/12/20 23:30: Glucometer 165H 11/13/20 03:14: White Blood Count 8.9, Red Blood Count 3.88L, Hemoglobin 11.6L, Hematocrit 35L, Mean Corpuscular Volume 91, Mean Corpuscular Hemoglobin 30, Mean Corpuscular Hemoglobin Concent 33, Red Cell Distribution Width 14.1, Platelet Count 183, Mean Platelet Volume 11.6, Immature Granulocyte % (Auto) 1, Neutrophils (%) (Auto) 83H, Lymphocytes (%) (Auto) 9L, Monocytes (%) (Auto) 6, Eosinophils (%) (Auto) 1, Basophils (%) (Auto) 0, Neutrophils # (Auto) 7.5, Lymphocytes # (Auto) 0.8L, Monocytes # (Auto) 0.5, Eosinophils # (Auto) 0.1, Basophils # (Auto) 0.0, Immature Granulocyte # (Auto) 0.1, Blood Gas Puncture Site ARTLINE, Blood Gas Patient Temperature 36.1, Arterial Blood pH 7.44H, Arterial Blood Partial Pressure CO2 34L, Arterial Blood Partial Pressure O2 68L, Arterial Blood HCO3 23, Arterial Blood Total CO2 24.1, Arterial Blood Oxygen Saturation 94, Arterial Blood Base Excess -0.7, Andrzej Test ART LINE, Blood Gas Ventilator Setting YES, Blood Gas Inspired Oxygen 30%, Sodium Level 138, Potassium Level 4.6, Chloride Level 111H, Carbon Dioxide Level 19L, Anion Gap 8, Blood Urea Nitrogen 50H, Creatinine 0.83, Estimat Glomerular Filtration Rate > 60, BUN/Creatinine Ratio 60, Glucose Level 156H, Calcium Level 7.2L, Corrected Calcium 8.6, Phosphorus Level 3.3, Magnesium Level 2.8H, Total Bilirubin 0.8, Aspartate Amino Transf (AST/SGOT) 58H, Alanine Aminotransferase (ALT/SGPT) 242H, Alkaline Phosphatase 144H, Total Protein 4.9L, Albumin 2.2L, Triglycerides Level 90 11/13/20 11:16: Glucometer 169H Microbiology 11/07/20 Blood Culture - Final, Complete No growth 11/03/20 MRSA Screen - Final, Complete MRSA not isolated 11/03/20 Urine Culture - Final, Complete NO GROWTH Patient resulted labs reviewed. Pending Labs Laboratory Tests 11/13/20 11:16: Glucometer 169 Imaging: Reviewed Imaging Report Discussion & Recommendations Discharge Planning: >30 minutes discharge planning Discharge Home Medications: Active Scripts Active Reported Proair Hfa (Albuterol Sulfate) 1 Puff Puff 2 Puff IH Q6H PRN 1 PUFF = 90 MCG Eliquis (Apixaban) 5 Mg Tablet 5 Mg PO BID Pravastatin Sodium 20 Mg Tablet 20 Mg PO HS Diltiazem 24Hr ER (Diltiazem HCl) 240 Mg Cap.er.24h 240 Mg PO DAILY 1 HOUR BEFORE OR 2 HOURS AFTER A MEAL Incruse Ellipta (Umeclidinium [place]) 62.5 Mcg Blst.w.dev 1 Puff INH DAILY Brovana (Arformoterol Tartrate) 15 Mcg/2 Ml Vial.neb 1 Vial NEB BID Budesonide 0.5 Mg/2 Ml Ampul.neb 1 Vial NEB BID Furosemide 40 Mg Tablet 40 Mg PO DAILY Lisinopril 40 Mg Tablet 40 Mg PO DAILY Condition at discharge stable but guarded Instructions to patient/family Please see electronic discharge instructions given to patient. Clinical Quality Measures Admission Status Admission Status: Inpatient Order (span 2 midnights) Reason for Inpatient Admission: septic shock with respiratory failure DVT/VTE Risk/Contraindication: Risk Factor Score Per Nursin RFS Level Per Nursing on Admit: 2=Moderate ARYA INFANTE MD Nov 13, 2020 10:41
[2020-11-13] MEDS ORDERED: [UNRECOGNIZED DRUG - CODE] IM/IV (10:55)
[2020-11-13] MEDS ORDERED: ACET650S15 PR (10:55)
[2020-11-13] MEDS ORDERED: PANT40VI IV (10:55)
[2020-11-13] MEDS ORDERED: AMIO50VI IV (10:55)
[2020-11-13] MEDS ORDERED: INSU100V16 SC (10:55)
[2020-11-13] MEDS ORDERED: METO-333 PO (10:55)
[2020-11-13] MEDS ORDERED: PROP10VI48 IV (10:55)
[2020-11-13] MEDS ORDERED: Artificial Tears OU (10:55)
[2020-11-13] MEDS ORDERED: ALBU18HF2 IH (10:55)
[2020-11-13] MEDS ORDERED: VANC1.5P34 IV (10:55)
[2020-11-13] MEDS ORDERED: DEXA10VI IV (10:55)
[2020-11-13] MEDS ORDERED: [UNRECOGNIZED DRUG - CODE] IV (10:55)
--- NOTE | 2020-11-13 11:12 | Cardiology Progress Note ---
Cardiology SOAP Progress Note Subjective: Intubated. Objective: I&O/Vital Signs Constitutional: other (on mech vent) Cardiovascular: irregularly irregular Neurologic/Psychiatric: other (intubated/ventilated) Skin: normal color, warm/dry Results/Procedures: Labs Microbiology 11/07/20 Blood Culture - Final, Complete No growth 11/03/20 MRSA Screen - Final, Complete MRSA not isolated 11/03/20 Urine Culture - Final, Complete NO GROWTH A/P: Assessment/Dx: Ac resp failure due to bilateral COVID-19 pneumonia, managed by Hosp and ICU services Type II NC due to hypoxia due to ac resp failure Acute renal insufficiency: KOREY 2 and metabolic acid, managed by Hosp and ICU services Chronic atrial fib with a rapid vent response, currently controlled Chronically abnormal ECG: A Fib with atypical bundle branch block, old ASMI cannot be excluded, unchanged (except for minor differences in lead placement) compared to ECGs of Aug 2020 (done at [facility], [facility], [place]) LVEF reported to be normal on echo done at [facility] in 2019 H/o COPD Chronic apixaban anticoag Plan: Plan: * Patient is being transferred to long-term care. * Continue apixaban * Rate control. * Treatment of COVID-19 and associated complications is with the Hospitalist and ICU services * Monitor labs Thank you for your consultation. Please call me if you have any questions. Marco Lehman MD, FACP, FACC, FSCAI, FHRS, CCDS Interventional Cardiology Cardiac Electrophysiology Vascular Medicine and Endovascular Interventions Hong LEHMAN MD Nov 13, 2020 11:11
[2020-11-13] MEDS ORDERED: TROUGH ORDER-PHARMACY XX ONE (12:00)
[2020-11-13 12:35] VITALS: BP 115/59
--- NOTE | 2020-11-13 12:35 | NUR ---
PATIENT DISCHARGED TO [facility] BEING TRANSPORTED BY [facility]. NO PERSONAL BELONGINGS IN ROOM. FAMILY REPORTS NO QUESTIONS REGARDING TRANSPORT. PATIENT VITALS STABLE AT DISCHARGE.
== END 2020-11-13 12:35 | DRG 870 ==
LOC: EDUNIT# 14:06 → ER 14:07 → ICU 17:20 → ER 19:00 → ICU 11-06 10:53
PROVIDERS: ADMIT Internal Medicine; ATTEND Internal Medicine
PROC: 02HV33Z Insertion of Infusion Device into Superior Vena Cava, Percutaneous Approach (ICD-10-PCS; principal; 2020-11-03)
PROC: 5A1955Z Respiratory Ventilation, Greater than 96 Consecutive Hours (ICD-10-PCS; 2020-11-03)
PROC: XW13325 Transfusion of Convalescent Plasma (Nonautologous) into Peripheral Vein, Percutaneous Approach, New Technology Group 5 (ICD-10-PCS; 2020-11-03)
PROC: 0BH17EZ Insertion of Endotracheal Airway into Trachea, Via Natural or Artificial Opening (ICD-10-PCS; 2020-11-03)
DX: A41.89 Other specified sepsis (principal); R65.21 Severe sepsis with septic shock; U07.1 COVID-19; J12.82 Pneumonia due to coronavirus disease 2019; J80 Acute respiratory distress syndrome; I21.A1 Myocardial infarction type 2; N17.9 Acute kidney failure, unspecified; K92.2 Gastrointestinal hemorrhage, unspecified; I48.21 Permanent atrial fibrillation; E87.2 Acidosis; J44.0 Chronic obstructive pulmonary disease with (acute) lower respiratory infection; E78.00 Pure hypercholesterolemia, unspecified; I10 Essential (primary) hypertension; I95.9 Hypotension, unspecified; A41.2 Sepsis due to unspecified staphylococcus; I25.10 Atherosclerotic heart disease of native coronary artery without angina pectoris; Z73.0 Burn-out
CPT/HCPCS: 31500; 36415; 36569; 51702; 71045; 71250; 76937; 80048; 80053; 80076; 80202; 81000; 82805; 82962; 83605; 83735; 83880; 84100; 84145; 84478; 84484; 85007; 85025; 85027; 85379; 85610; 85730; 86900; 86901; 87040; 87077; 87081; 87088; 87186; 87804; 93005; 94002; 94003; 94640; 94799; 96361; 96365; 96366; 96375; 99291

== ENCOUNTER → 2020-11-03 | Outpatient (CLI) | payer MEDICARE ==
[~2020-11-03] VITALS: Ht 167.7 cm; Wt 77.3 kg
[~2020-11-03] MED LIST: APIX5TAB PO; ARFO15VI3 NEB; BAMLANIVIMAB 700 MG in NS 200 ML IV ONE; BUDE0.5A NEB; DILT240C91 PO; EPINEPHrine INJECTION 1 MG/ML AMP IM PRN; FURO40TA4 PO; LISI40TA PO; PRAV20TA3 PO; RT-ALBUINH IH; RT-ALBUTEROL INHALER HFA (VENTOLIN HFA) 18 GM IH ONE; RT-ALBUTEROL INHALER HFA (VENTOLIN HFA) 18 GM IH STA; UMEC62.5 INH; diphenhydrAMINE 50 MG/ML INJ (BENADRYL) IV PRN
[2020-11-03 12:08] VITALS: BP 147/80
--- NOTE | 2020-11-03 13:44 | NUR ---
after using the restroom, appears more SOA, resp rate 28-30, monitoring sats 83-86%. appears more labored presently than on arrival. admits to any activity wiping him out, and feels this is his normal for activity and he is due for his inhaler. phone calls made to per mireya del toro
--- NOTE | 2020-11-03 13:51 | NUR ---
has not recovered still labored sats 83-86%.02 applied per NC, initially applied at 2 l, no changes increased to 5l, sats without significant change. pulse is tachy 120-140 palpated at wrist.
--- NOTE | 2020-11-03 13:55 | NUR ---
albuterol puff x2 admin with spacer on, applied simple mask at 6 L. resp rate noted 36-40, occas cough, continue to monitor
--- NOTE | 2020-11-03 14:03 | NUR ---
albuterol puff admin sat 86 % hr 121, cont labored, will be transferred to ER, Syl del toro updated daughters.
--- NOTE | 2020-11-03 14:08 | NUR ---
additional 2 puffs of albuterol admin, sat 87%, hr 138. bp 122/98. continues labored. updated pt need for higher level of care and will be transporting to ER and that family has been updated
--- NOTE | 2020-11-03 14:18 | NUR ---
assisted pt to cart, ANIMAL BIOLOGIST here and taken to ER on 10 L per SM
== END ==
LOC: INFUSION 12:08
PROVIDERS: ATTEND Emergency Medicine
DX: U07.1 COVID-19 (principal)